=== PATIENT | male | born 1930 | race Caucasian/White ===

== ENCOUNTER 2017-07-27 10:14 | Day surgery (SDC) | payer OTHER ==
[2017-07-27 10:44] VITALS: BMI 27.8
[2017-07-27] MEDS ORDERED: PROPOFOL 20 ML ONE ×2 (11:06)
[2017-07-27 11:41] VITALS: TEMP 97.9
[2017-07-27 12:24] VITALS: BP 118/68; PULSE 53
== END 2017-07-27 12:37 | disposition home or self-care (01) ==
LOC: JASU-ENDO 10:14
PROVIDERS: ATTEND Internal Medicine Gastroenterology
PROC: 0DJ08ZZ Inspection of Upper Intestinal Tract, Via Natural or Artificial Opening Endoscopic (ICD-10-PCS; principal; 2017-07-27 11:15)
DX: R10.13 Epigastric pain (principal); K44.9 Diaphragmatic hernia without obstruction or gangrene; K92.1 Melena; R68.81 Early satiety

== ENCOUNTER 2017-11-08 22:06 | Inpatient (IN) | payer OTHER ==
[2017-11-08] MEDS ORDERED: PIPERACILLIN/TAZOB 3.375 GM 3.375 GM in DEXTROSE 5%-WATER - 50 ML IVPB ONE (22:50)
[2017-11-08] MEDS ORDERED: ACETAMINOPHEN 1000 MG/100 ML VIAL (NON FORMULARY) IVPB ONE (22:50)
[2017-11-08] MEDS ORDERED: VANCOMYCIN 1,000 MG in DEXTROSE 5%-WATER - 250 ML IVPB ONE (22:50)
[2017-11-08] MEDS ORDERED: SODIUM CHLORIDE 1,000 ML IV STA ×2 (22:51)
--- NOTE | 2017-11-08 22:53 | PDOC ---
History of Present Illness - General Exam Limitations: No Limitations - History of Present Illness Initial Comments: 11/08/17 23:20 Patient is an 87 year old male with a significant past medical history of HTN, Stage two pancreatic cancer, controlled with Norvasc and Metoprolol, colon cancer (1990, status post colectomy, in remission), kidney stones, and PE ( diagnosed in 2002, 6 month anticoagulation therapy, not currently on anticoagulants) who presents to the ED with complaints of general malaise and fever that began earlier this week and has increased in intensity overtime prompting him to come into the ED for further evaluation. Patient reports last fever appointment was x2 weeks ago. Patient received pelvis CT in July 2017 that showed pancreatic mass that was likely edno carcinoma gastrohepatic and katina hepatic lymph nodes. Denies chest pain, Sob. Denies fevers,chills. Denies nausea, vomiting. Denies contact with sick individuals, out of state travelling. Denies dysuria, hematuria. Denies constipation, diarrhea. Denies any other symptoms. Allergies: None Social history: Former smoker. No alcohol. No illicit drugs. Surgical history: None PMD: Dr. Chambers <Jung Zuñiga - Last Filed: 11/08/17 23:20> - General History Source: Patient (DrDavid) <Luis Turner - Last Filed: 11/09/17 00:04> - General Chief Complaint: Lethargy Stated Complaint: LETHARGIC Time Seen by Provider: 11/08/17 22:45 Past History <Jung Zuñiga - Last Filed: 11/08/17 23:20> - Past Medical History Anemia: No Asthma: No Cancer: Yes (COLON CANCER remission, pancreatic ca) Cardiac Disorders: Yes (H/O PALPITATION; PULMONARY EMBOLI/DVT;ASHD) CVA: No COPD: No CHF: No Dementia: No Diabetes: No GI Disorders: Yes (GERD, HIATAL HERNIA) Disorders: (NEPHROLITHIASIS S/PESWL) HTN: Yes Hypercholesterolemia: No Liver Disease: No Seizures: No Thyroid Disease: No - Surgical History Abdominal Surgery: Yes (RIGHT HEMICOLECTOMY) Appendectomy: No Cardiac Surgery: No Cholecystectomy: No Lung Surgery: No Neurologic Surgery: No Orthopedic Surgery: No - Suicide/Smoking/Psychosocial Hx Smoking Status: No Smoking History: Never smoked Have you smoked in the past 12 months: No Number of Cigarettes Smoked Daily: 0 Information on smoking cessation initiated: No Hx Alcohol Use: No Drug/Substance Use Hx: No Substance Use Type: None Hx Substance Use Treatment: No <Luis Turner - Last Filed: 11/09/17 00:04> - Past Medical History Allergies/Adverse Reactions: Allergies Allergy/AdvReac Type Severity Reaction Status Date / Time No Known Allergies Allergy Verified 11/08/17 22:28 Home Medications: Ambulatory Orders Amlodipine Besylate [Norvasc -] 10 mg PO DAILY 07/26/12 Lansoprazole [Prevacid -] 30 mg PO DAILY 07/26/12 Metoprolol Succinate [Toprol XL -] 50 mg PO DAILY 07/26/12 Montelukast Na [Singulair -] 10 mg PO HS 07/26/12 Aspirin 81 mg PO DAILY 08/15/12 Lactobacillus Acidophilus [Acidophilus] 1 each PO DAILY 08/15/12 [place]-3 Acid Ethyl Esters [Lovaza -] 2,000 mg PO DAILY 08/15/12 Red Yeast Rice 1,000 mg PO DAILY 08/15/12 Isosorbide Dinitrate 0 mg PO DAILY 08/24/13 Ranolazine [Ranexa -] 500 mg PO BID 08/24/13 Warfarin Na [Coumadin -] 5 mg PO DAILY@1800 #0 tablet 08/28/13 Review of Systems - Review of Systems Able to Perform ROS?: Yes Comments:: 11/08/17 23:20 CONSTITUTIONAL: Absent: fever, no chills, no fatigue EYES: Absent: visual changes ENT: Absent: ear pain, no sore throat CARDIOVASCULAR: Absent: chest pain, no palpitations RESPIRATORY: Absent: cough, no SOB GI: Absent: abdominal pain, no nausea, no vomiting, no constipation, no diarrhea GENITOURINARY: Absent: dysuria, no frequency, no hematuria MUSCULOSKELETAL: Absent: back pain, no arthralgia, no myalgia SKIN: Absent: rash <Jung Zuñiga - Last Filed: 11/08/17 23:20> *Physical Exam - Vital Signs Last Vital Signs Temp Pulse Resp BP Pulse Ox 103.5 F H 80 18 107/56 100 11/08/17 22:24 11/08/17 22:24 11/08/17 22:24 11/08/17 22:24 11/08/17 22:24 - Physical Exam Comments: 11/08/17 23:21 GENERAL: Well-appearing, well-nourished. No apparent distress. HEENT: +Dry oral mucosa. Normocephalic, atraumatic. PERRL, EOM intact. CARDIOVASCULAR: Normal S1, S2. Regular rate and rhythm. PULMONARY: +Decreased breath sounds bilaterally. Clear to auscultation bilaterally. ABDOMEN: Soft, non-distended, non-tender. EXTREMITIES: Normal ROM in all four extremities. No gross deformities. SKIN: Warm, dry. No rash NEUROLOGICAL: No focal neurological deficits. <Jung Zuñiga - Last Filed: 11/08/17 23:20> - Vital Signs Last Vital Signs Temp Pulse Resp BP Pulse Ox 103.5 F H 80 18 107/56 100 11/08/17 22:24 11/08/17 22:24 11/08/17 22:24 11/08/17 22:24 11/08/17 22:24 <Luis Turner - Last Filed: 11/09/17 00:04> ED Treatment Course - LABORATORY CBC & Chemistry Diagram: 11/08/17 22:45 11/08/17 22:45 - ADDITIONAL ORDERS Additional order review: Laboratory Results 11/08/17 22:55 VBG pH 7.49 H POC VBG pCO2 31.4 L POC VBG pO2 42.2 Mixed VBG HCO3 23.7 11/08/17 22:45 RBC 3.29 L MCV 85.1 MCHC 32.8 RDW 16.2 H MPV 9.3 Neutrophils % No Result Required. Lymphocytes % No Result Required. - Medications Given in the ED: ED Medications Discontinued Medications Generic Name Dose Route Start Last Admin Trade Name Freq PRN Reason Stop Dose Admin Acetaminophen 1,000 mg 11/08/17 22:50 11/08/17 23:00 Ofirmev Injection - IVPB 11/08/17 22:51 1,000 mg ONCE ONE Administration <Jung Zuñiga - Last Filed: 11/08/17 23:20> - LABORATORY CBC & Chemistry Diagram: 11/08/17 22:45 11/08/17 22:45 - RADIOLOGY Radiology Studies Ordered: Category Date Time Status CHEST X-RAY PORTABLE* [RAD] Stat Radiology 11/08/17 22:46 Ordered <Luis Turner - Last Filed: 11/09/17 00:04> *DC/Admit/Observation/Transfer - Attestations Scribe Attestion: 11/08/17 23:21 Documentation prepared by Jung Zuñiga, acting as chief medical director for Luis Turner DO. <Jung Zuñiga - Last Filed: 11/08/17 23:20> - Discharge Dispostion Decision to Admit order: Yes <Luis Turner - Last Filed: 11/09/17 00:04> Diagnosis at time of Disposition: Pancreatic cancer, Fever - Discharge Dispostion Condition at time of disposition: Stable
[2017-11-08] MEDS ORDERED: VANCOMYCIN 1 GRAM (PRE-DOCKED) 1,000 MG/250 ML BAG IVPB ONE (23:00)
[2017-11-08] MEDS ORDERED: ACETAMINOPHEN INJECTION 100 ML IVPB ONE (23:00)
[2017-11-08 23:08] LABS: VENOUS PC02 31.4 mmHg (38-52); VENOUS PH 7.49 (7.32-7.42); VENOUS PO2 42.2 mmHg (28-48)
[2017-11-08 23:14] LABS: HEMOGLOBIN 9.2 GM/dL (11.7-16.9); MCH 27.9 pg (25.7-33.7); MCHC 32.8 g/dl (32.0-35.9); MEAN CELL VOLUME 85.1 fl (80-96); MEAN PLT VOLUME 9.3 fl (7.5-11.1); PLATELET COUNT 282 K/MM3 (134-434); RBC 3.29 M/mm3 (4.00-5.60); RDW 16.2 % (11.9-15.9); WHITE BLOOD COUNT 17.4 K/mm3 (4.0-10.0)
[2017-11-08 23:25] LABS: INR 1.65 (0.82-1.09); PROTHROMBIN TIME (PATIENT) 18.7 SEC (9.7-13.0)
[2017-11-08 23:28] LABS: ACTIVATED PTT 25.2 SECONDS (25.2-36.5)
[2017-11-08 23:34] LABS: PLATELET ESTIMATE ADEQUATE
[2017-11-08 23:38] LABS: ALBUMIN 2.1 g/dl (3.4-5.0); ANION GAP 9 (8-16); BILIRUBIN,TOTAL 0.8 mg/dL (0.2-1.0); BLOOD UREA NITROGEN 18 mg/dL (7-18); CALCIUM 8.4 mg/dL (8.5-10.1); CHLORIDE 99 mmol/L (98-107); CO2 24 mmol/L (21-32); CREATININE 1.1 mg/dL (0.7-1.3); GLUCOSE,RANDOM 191 mg/dL (74-106); POTASSIUM 3.9 mmol/L (3.5-5.1); SGOT/AST 39 U/L (15-37); SGPT/ALT 30 U/L (12-78); SODIUM 132 mmol/L (136-145); TOT PROT 5.5 g/dl (6.4-8.2)
[2017-11-08 23:40] LABS: ALK PHOS 106 U/L (45-117)
[2017-11-09] MEDS ORDERED: DEXTROSE 5%-0.45% SALINE 1,000 ML IV SCH (00:15)
--- NOTE | 2017-11-09 02:05 | HP ---
CHIEF COMPLAINT: fever PCP: Reyes, Oncology: [facility] HISTORY OF PRESENT ILLNESS: nancy is a 87 year old male with a significant past medical history of pancreatic CA (diagnosed recently) on chemo, last dose 2 weeks ago presented to the ED with fever x 2 days with associated malaise. Denies any other symptoms. Denies SOB, cough, chest pain, abdominal pain, N/V/D, dysuria, frequency. ER course was notable for: (1) WBC 17.4, 10% bands, lactic acid 2.7 (2) Sodium 132 (3) given vanc and zosyn Recent Travel: pt denies PAST MEDICAL HISTORY: pancreatic CA, HTN, ASHD, PE/DVT 2013, GERD, hiatal hernia, colon CA 1990, kidney stones PAST SURGICAL HISTORY: R hemicolectomy B/L cataract Social History: Smoking: pt denies Alcohol: pt denies Drugs: pt denies Family History: mother age 56, CVA father age 72, atherosclerosis brother age 33, Hodkin's lymphoma brother age 50, multiple myeloma sister age 58, cancer, unkown type sister in her 50s, embolism Allergies No Known Allergies Allergy (Verified 11/08/17 22:28) HOME MEDICATIONS: 3 Medication Instructions Recorded Amlodipine Besylate [Norvasc -] 10 mg PO DAILY 07/26/12 Lansoprazole [Prevacid -] 30 mg PO DAILY 07/26/12 Metoprolol Succinate [Toprol XL -] 50 mg PO DAILY 07/26/12 Montelukast Na [Singulair -] 10 mg PO HS 07/26/12 Aspirin 81 mg PO DAILY 08/15/12 Lactobacillus Acidophilus 1 each PO DAILY 08/15/12 [Acidophilus] [place]-3 Acid Ethyl Esters [Lovaza 2,000 mg PO DAILY 08/15/12 -] Red Yeast Rice 1,000 mg PO DAILY 08/15/12 Ranolazine [Ranexa -] 500 mg PO BID 08/24/13 Enoxaparin [Lovenox -] unkown dose SQ DAILY 11/09/17 Isosorbide Mononitrate [Isosorbide 30 mg PO DAILY 11/09/17 Mononitrate ER] REVIEW OF SYSTEMS CONSTITUTIONAL: Present: fever, malaise Absent: chills, diaphoresis, generalized weakness, loss of appetite, weight change HEENT: Absent: rhinorrhea, nasal congestion, throat pain, throat swelling, difficulty swallowing, mouth swelling, ear pain, eye pain, visual changes CARDIOVASCULAR: Absent: chest pain, syncope, palpitations, irregular heart rate, lightheadedness , peripheral edema RESPIRATORY: Absent: cough, shortness of breath, dyspnea with exertion, orthopnea, wheezing, stridor, hemoptysis GASTROINTESTINAL: Absent: abdominal pain, abdominal distension, nausea, vomiting, diarrhea, constipation, melena, hematochezia GENITOURINARY: Absent: dysuria, frequency, urgency, hesitancy, hematuria, flank pain, genital pain MUSCULOSKELETAL: Absent: myalgia, arthralgia, joint swelling, back pain, neck pain SKIN: Absent: rash, itching, pallor HEMATOLOGIC/IMMUNOLOGIC: Absent: easy bleeding, easy bruising, lymphadenopathy, frequent infections ENDOCRINE: Absent: unexplained weight gain, unexplained weight loss, heat intolerance, cold intolerance NEUROLOGIC: Absent: headache, focal weakness or paresthesias, dizziness, unsteady gait, seizure, mental status changes, bladder or bowel incontinence PSYCHIATRIC: Absent: anxiety, depression, suicidal or homicidal ideation, hallucinations. PHYSICAL EXAMINATION Vital Signs - 24 hr 3 //18 22:24 Temperature 103.5 F H Pulse Rate 80 Respiratory 18 Rate Blood Pressure 107/56 O2 Sat by Pulse 100 Oximetry (%) GENERAL: Awake, alert, and fully oriented, in no acute distress. HEAD: Normal with no signs of trauma. EYES: Pupils equal, round and reactive to light, extraocular movements intact, sclera anicteric, conjunctiva clear. No lid lag. EARS, NOSE, THROAT: Ears normal, nares patent, oropharynx clear without exudates. Moist mucous membranes. NECK: Normal range of motion, supple without lymphadenopathy, JVD, or masses. LUNGS: Breath sounds equal, clear to auscultation bilaterally. No wheezes. No accessory muscle use. crackles bilat bases HEART: Regular rate and rhythm, normal S1 and S2 without murmur, rub or gallop. ABDOMEN: Soft, nontender, not distended, normoactive bowel sounds, no guarding, no rebound, no masses. No hepatomegaly or splenomegaly. MUSCULOSKELETAL: Normal range of motion at all joints. No bony deformities or tenderness. No CVA tenderness. UPPER EXTREMITIES: 2+ pulses, warm, well-perfused. No cyanosis. No clubbing. No peripheral edema. LOWER EXTREMITIES: 2+ pulses, warm, well-perfused. No calf tenderness. No peripheral edema. NEUROLOGICAL: Cranial nerves II-XII intact. Normal speech. Normal gait. PSYCHIATRIC: Cooperative. Good eye contact. Appropriate mood and affect. SKIN: Warm, dry, normal turgor, no rashes or lesions noted, normal capillary refill. Laboratory Results - last 24 hr 3 11/08/17 11/08/17 11/08/17 11/08/17 11/09/17 22:45 22:45 22:45 22:55 00:45 WBC 17.4 H RBC 3.29 L Hgb 9.2 L Hct 28.0 L D MCV 85.1 MCH 27.9 MCHC 32.8 RDW 16.2 H Plt Count 282 D MPV 9.3 Absolute Neuts (auto) 15.9 Total Counted 100 Neutrophils % No Result Required. Neutrophils % (Manual) 82.0 Band Neutrophils % 10.0 Lymphocytes % No Result Required. Lymphocytes % (Manual) 3.0 L Monocytes % (Manual) 4 Nucleated RBC % 0 Metamyelocytes 1 Hypochromia 1+ Dohle Bodies 1+ Platelet Estimate Adequate Platelet Comment No clumping noted Polychromasia 1+ PT with INR 18.70 H INR 1.65 H D PTT (Actin FS) 25.2 L D VBG pH 7.49 H POC VBG pCO2 31.4 L POC VBG pO2 42.2 Mixed VBG HCO3 23.7 Sodium 132 L Potassium 3.9 Chloride 99 Carbon Dioxide 24 Anion Gap 9 BUN 18 Creatinine 1.1 Creat Clearance w eGFR > 60 Random Glucose 191 H D Lactic Acid 2.7 H* 1.5 Calcium 8.4 L Total Bilirubin 0.8 AST 39 H D ALT 30 D Alkaline Phosphatase 106 Troponin I 0.05 D Total Protein 5.5 L Albumin 2.1 L ECG Sinus rhythm with PAC with aberrant conduction vent rate 98, QTC 416 low voltage QRS No acute ST/T changes ASSESSMENT/PLAN: 87yM with PMH pancreatic CA-last chemo 2 weeks ago, HTN, ASHD, PE/DVT 2013, GERD , hiatal hernia, colon CA 1990, kidney stones who presented to the ED with fever /malaise x 2 days. Fever, sepsis, suspected secondary to UTI - urinalysis pending, nurse aware to collect and send - given vanc and zosyn in the ED, cont same - ID consult - received 2L NS, lactic acid down to 1.5 - cont NS @ 50cc/hr - follow CXR report Pancreatic CA - recommend contact primary oncologist in AM HTN/ASHD - cont home meds: ASA, toprol, ranexa, omega 3, isosorbide GERD - home prevacid changed to formulary pantoprazole h/o PE/DVT - pt reports he is no longer on warfarin, changed to shot once daily - lovenox 60mg BID DVT PPX - full dose lovenox FEN - NS @ 50cc/hr - BMP in am - low sodium diet as tolerated Dispo: pt currently requires further inpatient management of his emergent condition. Hospitalist Screening - Colonoscopy Questionnaire Colonoscopy Questionnaire: Colonoscopy Questionnaire
[2017-11-09] MEDS ORDERED: SODIUM CHLORIDE 1,000 ML IV SCH (02:30)
[2017-11-09 04:56] VITALS: BMI 27.4
[2017-11-09] MEDS ORDERED: DEXTROSE 5%-WATER - 50 ML IVPB ONE (05:44)
[2017-11-09] MEDS ORDERED: PIPERACILLIN/TAZOBACTAM 3.375 GM VIAL IVPB ONE (05:44)
[2017-11-09] MEDS ORDERED: PIPERACILLIN/TAZOB 3.375 GM 3.375 GM in DEXTROSE 5%-WATER - 50 ML IVPB ONE (06:00)
--- NOTE | 2017-11-09 09:12 | PN ---
Progress Note, Physician - Current Medication List Current Medications: Active Medications Amlodipine Besylate (Norvasc -) 10 mg PO DAILY [facility] Aspirin (Asa -) 81 mg PO DAILY [facility] Enoxaparin Sodium (Lovenox -) 60 mg SQ BID [facility] Sodium Chloride (Normal Saline -) 1,000 mls @ 50 mls/hr IV ASDIR [facility] Stop: 11/10/17 02:28 Last Admin: 11/09/17 02:46 Dose: 50 mls/hr Isosorbide Mononitrate (Imdur -) 30 mg PO DAILY [facility] Lactobacillus Acidophilus (Bacid -) 1 tab PO DAILY [facility] Metoprolol Succinate (Toprol Xl -) 50 mg PO DAILY [facility] Montelukast Sodium (Singulair -) 10 mg PO HS [facility] Non-Formulary Medication (Red Yeast Rice [Red Yeast Rice]) 1,000 mg PO DAILY [id number] Ethyl Esters (Lovaza -) 2 gm PO DAILY [facility] Pantoprazole Sodium (Protonix -) 40 mg PO DAILY [facility] Ranolazine (Ranexa -) 500 mg PO BID [facility] - Objective Vital Signs: Vital Signs Temperature 99.9 F H 11/09/17 08:58 Pulse Rate 104 H 11/09/17 08:58 Respiratory Rate 20 11/09/17 08:58 Blood Pressure 107/51 11/09/17 08:58 O2 Sat by Pulse Oximetry (%) 92 L 11/09/17 04:56 Labs: CBC, BMP 11/08/17 22:45 11/08/17 22:45 INR, PTT INR 1.65 (0.82-1.09) H D 11/08/17 22:45 Problem List - Problems (1) Fever Assessment/Plan: -sepsis, suspected secondary to UTI - urinalysis pending - given vanc and zosyn in the ED, cont same - ID consult - received 2L NS, lactic acid down to 1.5 - cont NS @ 100cc/hr - ct scan Code(s): R50.9 - FEVER, UNSPECIFIED (2) Pancreatic cancer Assessment/Plan: - oncology consult - had chemo 2 weeks ago Code(s): C25.9 - MALIGNANT NEOPLASM OF PANCREAS, UNSPECIFIED (3) DVT (deep venous thrombosis) Assessment/Plan: - pt reports he is no longer on warfarin, changed to shot once daily - lovenox 60mg BID Code(s): I82.409 - ACUTE EMBOLISM AND THOMBOS UNSP DEEP VN UNSP LOWER EXTREMITY (4) HTN (hypertension) Assessment/Plan: - cont home meds: ASA, toprol, ranexa, omega 3, isosorbide -hold amlodipine Code(s): I10 - ESSENTIAL (PRIMARY) HYPERTENSION
--- NOTE | 2017-11-09 09:59 | PN ---
Progress Note (short form) - Note Progress Note: ID Full note dictated Chemotherapy pancreatic cancer recently has port Chills no localizing complaints Selected Entries 11/09/17 08:58 Temperature 99.9 F H Pulse Rate 104 H Respiratory 20 Rate Blood Pressure 107/51 Dyspneic Alert mod distress Lung Diminished BS Cor S1 S2 Tachy Abd Soft nontender Microbiology Laboratory Tests 11/08/17 11/08/17 11/08/17 22:45 22:45 22:45 WBC 17.4 H Hgb 9.2 L Hct 28.0 L D Plt Count 282 D BUN 18 Creatinine 1.1 Creat Clearance w eGFR > 60 Lactic Acid 2.7 H* Total Bilirubin 0.8 AST 39 H D ALT 30 D 11/09/17 00:45 WBC Hgb Hct Plt Count BUN Creatinine Creat Clearance w eGFR Lactic Acid 1.5 Total Bilirubin AST ALT Assessment Sepsis syndrome source unclear immunocompromised man due to age pancreatic cancer and chemotherapy Has port Respiratory distress Plan Blood and urine cultures CT chest ABG Consider pulmonary consult Oma RIVERO
[2017-11-09] MEDS ORDERED: RANOLAZINE E.R. 500 MG TABLET (FP) PO SCH (10:00)
[2017-11-09] MEDS ORDERED: PATIENT'S OWN MEDICATION (NON-FORMULARY) (Lansoprazole 30 MG) PO SCH (10:00)
[2017-11-09] MEDS ORDERED: RED YEAST RICE PO SCH (10:00)
[2017-11-09] MEDS ORDERED: OMEGA-3 ACID ETHYL ESTERS (FATTY-ACIDS) 1 GM CAPSULE (FP) PO SCH (10:00)
[2017-11-09] MEDS ORDERED: amLODIPine BESYLATE 10 MG TABLET (FP) PO SCH ×2 (10:00)
[2017-11-09] MEDS ORDERED: ASPIRIN 81 MG CHEWABLE TABLETS PO SCH (10:00)
[2017-11-09] MEDS: ENOXAPARIN NA (PORCINE) 60 MG/0.6 ML DISP.SYRIN SQ SCH ×2 (10:05→22:03)
[2017-11-09 10:41] LABS: BASO % 0.2 % (0-2.0); HEMATOCRIT 25.5 % (35.4-49); HEMOGLOBIN 8.4 GM/dL (11.7-16.9); LYMPH % 1.7 % (8-40); MCH 28.2 pg (25.7-33.7); MCHC 32.9 g/dl (32.0-35.9); MEAN PLT VOLUME 9.4 fl (7.5-11.1); MONO % 2.7 % (3.8-10.2); NEUT % 95.4 % (42.8-82.8); PLATELET COUNT 200 K/MM3 (134-434); RBC 2.97 M/mm3 (4.00-5.60); RDW 16.6 % (11.9-15.9); WHITE BLOOD COUNT 9.7 K/mm3 (4.0-10.0)
--- NOTE | 2017-11-09 10:44 | CONS ---
DATE OF CONSULTATION: DATE OF DICTATION: 11/09/2017 HISTORY OF PRESENT ILLNESS: This is an 87-year-old male with known pancreatic cancer whom I asked to see for evaluation of fever. The patient has stage 2 pancreatic cancer and has been followed at [facility]. He has been receiving chemotherapy through a [id number] and notes that his last chemotherapy the name of which he was unaware was approximately 2 weeks ago. He lives at home with his and yesterday noted onset of worsening pain in his right upper quadrant for which he takes analgesics on a chronic basis. He also noted fever and shaking chills. He came to the emergency room where he was empirically treated for sepsis with a dose of vancomycin and piperacillin/tazobactam. I am asked to see him for further management. He appears to be in respiratory distress and is hypoxic on 2 L, nasal cannula. He denies any chest pain, palpitations and has a history of DVT for which he has been on Lovenox at home for some time. He has no diarrhea, vomiting and denies any dysuria or hematuria. He lives with his and has no history of recent travel or exposure to persons with known illness. He denied any rash or joint pains. PAST MEDICAL HISTORY: Includes hypertension, pancreatic cancer, colon cancer, status post colectomy, kidney stones and history of PE diagnosed in 2002. The notes reflect that he is not on anticoagulation at home, but I spoke to his primary care doctor who confirmed that he was taking Lovenox. ALLERGIES: None known. SOCIAL HISTORY: Former smoker. No drug use. FAMILY HISTORY: Noncontributory. REVIEW OF SYSTEMS: Respiratory: Shortness of breath. Denies cough, pleuritic chest pain. Cardiac: No palpitations, murmur. Gastrointestinal: Currently no abdominal pain, vomiting, diarrhea. Genitourinary: No dysuria, hematuria, urinary frequency. PHYSICAL EXAMINATION:General: He was an elderly male, alert, who appeared in acute respiratory distress. Vital Signs: His temperature maximum was 103.5 but currently temperature 99.9, pulse 100, blood pressure 107/51, respirations 20, O2 saturation 92% on 2 L, nasal cannula. HEENT: Revealed no oral candidiasis. Neck: Supple without adenopathy. Lungs: Diminished breath sounds bilaterally. No rales or rhonchi. Heart: S1, S2, regular rhythm without audible murmur, tachycardic. Abdomen: Positive bowel sounds, soft, nontender, no guarding or rebound, no palpable mass. Extremities: No clubbing, cyanosis or edema. LABORATORIES: White count of 17.4, hemoglobin 9.2, platelets of 282, left shift with 10% bands. INR of 1.65. BUN 18, creatinine 1.1. Lactic acid 2.7, 1.5. Bilirubin 0.8, alkaline phosphatase 106, AST 39, ALT 30. Chest x-ray was reviewed, a rotated film, possible atelectasis, ? infiltrate, left port. ASSESSMENT: Sepsis syndrome in this 87-year-old male with pancreatic cancer receiving chemotherapy. Source of sepsis unclear. Possible sources include urinary tract and pneumonia. Currently there is no urinalysis available for review. This has been ordered by Dr. Chambers. He has a history of a pulmonary embolus and deep vein thrombosis but according to Dr. Chambers has been on anticoagulation. RECOMMENDATIONS: At this point would empirically treat him with vancomycin and Zosyn pending blood and urine cultures. In view of his respiratory distress will order a blood gas as well as pulmonary consultation and consideration of ICU transfer. CT of the abdomen has been ordered and I will add a noncontrast chest CT for completeness to evaluate for pneumonia. Case was discussed at length with Dr. Chambers. JAY JOE M.D. [id number]
[2017-11-09 10:47] LABS: ALBUMIN 1.7 g/dl (3.4-5.0); ALK PHOS 105 U/L (45-117); ANION GAP 12 (8-16); BILIRUBIN,DIRECT 0.5 mg/dL (0.0-0.2); BILIRUBIN,TOTAL 0.9 mg/dL (0.2-1.0); BLOOD UREA NITROGEN 15 mg/dL (7-18); CALCIUM 7.6 mg/dL (8.5-10.1); CHLORIDE 104 mmol/L (98-107); CO2 21 mmol/L (21-32); GLUCOSE,RANDOM 143 mg/dL (74-106); MAGNESIUM 1.4 mg/dL (1.8-2.4); PHOSPHOROUS 2.1 mg/dL (2.5-4.9); POTASSIUM 3.8 mmol/L (3.5-5.1); SGOT/AST 36 U/L (15-37); SGPT/ALT 29 U/L (12-78); SODIUM 137 mmol/L (136-145); TOT PROT 4.6 g/dl (6.4-8.2)
[2017-11-09] MEDS: ASPIRIN 81 MG CHEWABLE TABLETS PO SCH (11:06)
[2017-11-09] MEDS: OMEGA-3 ACID ETHYL ESTERS (FATTY-ACIDS) 1 GM CAPSULE (FP) PO SCH (11:06)
[2017-11-09] MEDS: RANOLAZINE E.R. 500 MG TABLET (FP) PO SCH ×2 (11:06→21:52)
[2017-11-09] MEDS: LACTOBACILLUS ACIDOPHILUS 1 TABLET PO SCH (11:06)
[2017-11-09] MEDS: PANTOPRAZOLE 40 MG TABLET (FP) PO SCH (11:07)
[2017-11-09] MEDS: ISOSORBIDE MONONITRATE 30 MG TAB.SR.24H (FP) PO SCH (11:07)
[2017-11-09] MEDS: VANCOMYCIN 1 GM PREMIX - 1 GM/200 ML BAG IVPB SCH ×2 (11:33→22:05)
--- NOTE | 2017-11-09 11:40 | EKG ---
Test Reason : Blood Pressure : / mmHG Vent. Rate : 098 BPM Atrial Rate : 098 BPM P-R Int : 178 ms QRS Dur : 070 ms QT Int : 326 ms P-R-T Axes : 028 007 032 degrees QTc Int : 416 ms SINUS RHYTHM WITH PREMATURE ATRIAL COMPLEXES WITH ABERRANT CONDUCTION LOW VOLTAGE QRS CANNOT RULE OUT ANTERIOR INFARCT , AGE UNDETERMINED ABNORMAL ECG WHEN COMPARED WITH ECG OF 24-AUG-2013 11:12, ABERRANT CONDUCTION IS NOW PRESENT VENT. RATE HAS INCREASED BY 45 BPM NONSPECIFIC T WAVE ABNORMALITY NOW EVIDENT IN ANTERIOR LEADS Confirmed by HIEU RIVERO, SHANNON ([id number]) on 11/09/2017 11:40:44 AM Referred By: Confirmed By:SHANNON HAGEN MD
[2017-11-09 11:55] LABS: ARTERIAL BLD GAS O2 SATURATION 96.4 % (90-98.9); ARTERIAL BLOOD GAS BASE EXCESS -3.6 meq/l (-2-2); ARTERIAL BLOOD GAS PCO2 25.2 mmHg (35-45); ARTERIAL BLOOD GAS PO2 75.8 mmHg (68-100); ARTERIAL BLOOD GAS pH 7.48 (7.35-7.45)
[2017-11-09 11:57] LABS: ALLENS TEST POSITIVE
[2017-11-09] MEDS: INSULIN SLIDING SCALE (NOVOLOG) 1 VIAL SQ SCH ×3 (12:10→21:56)
[2017-11-09 12:13] LABS: PLATELET ESTIMATE ADEQUATE
--- NOTE | 2017-11-09 12:13 | CON.GI ---
Consult Consult Specialty:: Gastroenterology Referred by:: Dr. Floyd Chambers Reason for Consultation:: Pancreatic cancer - History of Present Illness Chief Complaint: Fever leading to altered mental status History of Present Illness: 87M with pancreatic head neoplasm was due to receive his 4th dosing of chemotherapy when he developed fever and altered mental status. He was evaluated at the [facility] where chemo was advised. His 09/09 MRI reveals that the neoplasm is over 7cm in size and encasing the celiac and mesenteric vasculature. She has been eating and moving his bowels but has been losing weight. He denies cough or diarrhea. He is not pruritic and his bilirubin is I saw him on 07/25/17 for diffuse colicky abdominal pains and ordered the CT scan that discovered his neoplasm An EGD in 08/10 was unremarkable. He had right colon cancer resected in 1990 and had his last colonoscopy with Dr Antonio 5 years ago. He opted against further surveillance when discussed in July. He continues to have RUQ pain felt to be due to his tumor. - History Source History Provided By: Patient, Medical Record Limitations to Obtaining History: No Limitations - Past Medical History Cardio/Vascular: Yes: CAD, HTN, Hyperlipdemia Pulmonary: Yes: Pulmonary Embolus (associated with DVT) Gastrointestinal: Yes: Cancer (Pancreatic cancr dx'ed 08/10, Right colon cancer resected 1990) Renal/: Yes: BPH, Renal Calculi (s/p ESWL) Musculoskeletal: Yes: Osteoarthritis - Past Surgical History Past Surgical History: Yes: Cataract Removal (bilateral), Colonoscopy, Tonsillectomy (surgical excision of right renal stones), Upper Endoscopy - Alcohol/Substance Use Hx Alcohol Use: Yes (socially until chemo began) History of Substance Use: reports: None - Smoking History Smoking history: Former smoker Have you smoked in the past 12 months: No Aproximately how many cigarettes per day: 0 If you are a former smoker, when did you quit?: 1953 - Social History Usual Living Arrangement: With Spouse ADL: Independent Occupation: retired mailman Place of : [facility] History of Recent Travel: No Home Medications - Allergies Allergies/Adverse Reactions: Allergies Allergy/AdvReac Type Severity Reaction Status Date / Time No Known Allergies Allergy Verified 11/08/17 22:28 - Home Medications Home Medications: Ambulatory Orders Amlodipine Besylate [Norvasc -] 10 mg PO DAILY 07/26/12 Lansoprazole [Prevacid -] 30 mg PO DAILY 07/26/12 Metoprolol Succinate [Toprol XL -] 50 mg PO DAILY 07/26/12 Montelukast Na [Singulair -] 10 mg PO HS 07/26/12 Aspirin 81 mg PO DAILY 08/15/12 Lactobacillus Acidophilus [Acidophilus] 1 each PO DAILY 08/15/12 [place]-3 Acid Ethyl Esters [Lovaza -] 2,000 mg PO DAILY 08/15/12 Red Yeast Rice 1,000 mg PO DAILY 08/15/12 Ranolazine [Ranexa -] 500 mg PO BID 08/24/13 Enoxaparin [Lovenox -] 0 mg SQ DAILY 11/09/17 Isosorbide Mononitrate [Isosorbide Mononitrate ER] 30 mg PO DAILY 11/09/17 Family Disease History - Family Disease History Family Disease History: Heart Disease: Father ( 72 of [place]), CA: Brother ( multiple myeloma), Sister (colon cancer @ age 58), Other: Mother ( 56 of CVA ) Review of Systems - Review of Systems Constitutional: reports: Loss of Appetite, Unintentional Wgt. Loss, Weakness Eyes: reports: No Symptoms HENT: reports: No Symptoms Neck: reports: No Symptoms Cardiovascular: reports: No Symptoms Respiratory: reports: No Symptoms Gastrointestinal: reports: Abdominal Pain Musculoskeletal: reports: Back Pain, Joint Pain Physical Exam-GI Vital Signs: Vital Signs Temperature 99.9 F H 11/09/17 08:58 Pulse Rate 104 H 11/09/17 08:58 Respiratory Rate 20 11/09/17 08:58 Blood Pressure 107/51 11/09/17 08:58 O2 Sat by Pulse Oximetry (%) 92 L 11/09/17 04:56 CBC,CMP WBC 9.7 K/mm3 (4.0-10.0) 11/09/17 10:02 RBC 2.97 M/mm3 (4.00-5.60) L 11/09/17 10:02 Hgb 8.4 GM/dL (11.7-16.9) L 11/09/17 10:02 Hct 25.5 % (35.4-49) L 11/09/17 10:02 MCV 86.0 fl (80-96) 11/09/17 10:02 MCH 28.2 pg (25.7-33.7) 11/09/17 10:02 MCHC 32.9 g/dl (32.0-35.9) 11/09/17 10:02 RDW 16.6 % (11.9-15.9) H 11/09/17 10:02 Plt Count 200 K/MM3 (134-434) D 11/09/17 10:02 MPV 9.4 fl (7.5-11.1) 11/09/17 10:02 Absolute Neuts (auto) 9.2 # 11/09/17 10:02 Total Counted 100 11/09/17 10:02 Neutrophils % 95.4 % (42.8-82.8) H D 11/09/17 10:02 Neutrophils % (Manual) 83.0 % (42.8-82.8) H 11/09/17 10:02 Band Neutrophils % 13.0 % 11/09/17 10:02 Lymphocytes % 1.7 % (8-40) L D 11/09/17 10:02 Lymphocytes % (Manual) 1.0 % (8-40) L D 11/09/17 10:02 Monocytes % 2.7 % (3.8-10.2) L 11/09/17 10:02 Monocytes % (Manual) 3 % (3.8-10.2) L 11/09/17 10:02 Eosinophils % 0.0 % (0-4.5) D 11/09/17 10:02 Basophils % 0.2 % (0-2.0) 11/09/17 10:02 Nucleated RBC % 0 % (0-0) 11/09/17 10:02 Metamyelocytes 1 % (0-2) 11/08/17 22:45 Hypochromia 1+ 11/08/17 22:45 Dohle Bodies 1+ 11/08/17 22:45 Platelet Estimate Adequate 11/09/17 10:02 Platelet Comment Rare giant plts 11/09/17 10:02 Polychromasia 1+ 11/08/17 22:45 Sodium 137 mmol/L (136-145) 11/09/17 10:02 Potassium 3.8 mmol/L (3.5-5.1) 11/09/17 10:02 Chloride 104 mmol/L (98-107) 11/09/17 10:02 Carbon Dioxide 21 mmol/L (21-32) 11/09/17 10:02 Anion Gap 12 (8-16) 11/09/17 10:02 BUN 15 mg/dL (7-18) 11/09/17 10:02 Creatinine 1.0 mg/dL (0.7-1.3) 11/09/17 10:02 Creat Clearance w eGFR > 60 (>60) 11/09/17 10:02 Random Glucose 143 mg/dL (74-106) H D 11/09/17 10:02 Lactic Acid 1.5 mmol/L (0.0-2.0) 11/09/17 00:45 Calcium 7.6 mg/dL (8.5-10.1) L 11/09/17 10:02 Phosphorus 2.1 mg/dL (2.5-4.9) L 11/09/17 10:02 Magnesium 1.4 mg/dL (1.8-2.4) L 11/09/17 10:02 Total Bilirubin 0.9 mg/dL (0.2-1.0) 11/09/17 10:02 Direct Bilirubin 0.5 mg/dL (0.0-0.2) H 11/09/17 10:02 AST 36 U/L (15-37) 11/09/17 10:02 ALT 29 U/L (12-78) 11/09/17 10:02 Alkaline Phosphatase 105 U/L (45-117) 11/09/17 10:02 Troponin I 0.05 ng/ml (0.00-0.05) D 11/08/17 22:45 Total Protein 4.6 g/dl (6.4-8.2) L 11/09/17 10:02 Albumin 1.7 g/dl (3.4-5.0) L 11/09/17 10:02 Current Medications Generic Name Dose Route Start Last Admin Trade Name Diegoq PRN Reason Stop Dose Admin Aspirin 81 mg 11/09/17 10:00 11/09/17 11:06 Asa - PO 81 mg DAILY CHUY Administration Enoxaparin Sodium 60 mg 11/09/17 10:00 11/09/17 10:05 Lovenox - SQ 60 mg BID CHUY Administration Potassium Chloride/Sodium Chloride 20 meq in 1,000 mls @ 100 mls/hr 11/09/17 09:15 Ns+20 Meq Kcl - IV ASDIR CHUY Vancomycin HCl 1 gm in 200 mls @ 133.333 mls/hr 11/09/17 11:00 11/09/17 11:33 Vancomycin 1 Gm Premix - IVPB 133.333 mls/hr BID@1100,2300 CHUY Administration Protocol Piperacillin Sod/Tazobactam 100 mls @ 200 mls/hr 11/09/17 18:00 Sod 4.5 gm/ Dextrose IVPB Q8H-IV CHUY Protocol Insulin Aspart 1 vial 11/09/17 11:00 11/09/17 12:10 Novolog Vial Sliding Scale - SQ Not Given ACHS [facility] Protocol Isosorbide Mononitrate 30 mg 11/09/17 10:00 11/09/17 11:07 Imdur - PO 30 mg DAILY CHUY Administration Lactobacillus Acidophilus 1 tab 11/09/17 10:00 11/09/17 11:06 Bacid - PO 1 tab DAILY CHUY Administration Metoprolol Succinate 50 mg 11/09/17 10:00 11/09/17 11:06 Toprol Xl - PO 50 mg DAILY CHUY Administration Montelukast Sodium 10 mg 11/09/17 22:00 Singulair - PO HS CHUY Non-Formulary Medication 1,000 mg 11/09/17 10:00 Red Yeast Rice [Red Yeast Rice] PO DAILY CHUY Gfvof-5-Empq Ethyl Esters 2 gm 11/09/17 10:00 11/09/17 11:06 Lovaza - PO 2 gm DAILY CHUY Administration Pantoprazole Sodium 40 mg 11/09/17 10:00 11/09/17 11:07 Protonix - PO 40 mg DAILY CHUY Administration Ranolazine 500 mg 11/09/17 10:00 11/09/17 11:06 Ranexa - PO 500 mg BID CHUY Administration Constitutional: Yes: Calm Eyes: Yes: Conjunctiva Clear HENT: Yes: Normocephalic Neck: Yes: Trachea Midline Cardiovascular: Yes: Regular Rate and Rhythm Respiratory: Yes: CTA Bilaterally Gastrointestinal Inspection: Yes: Scars (healed obliqur RUQ and vertical right paraumbilical incisions) ...Auscultate: Yes: Normoactive Bowel Sounds ...Palpate: Yes: Soft, Other (nontender) Edema: No Psychiatric: Yes: Alert, Oriented Labs: CBC, BMP 11/09/17 10:02 11/09/17 10:02 INR, PTT INR 1.65 (0.82-1.09) H D 11/08/17 22:45 Laboratory Tests 11/09/17 10:02 Magnesium 1.4 L Total Bilirubin 0.9 Direct Bilirubin 0.5 H AST 36 ALT 29 Alkaline Phosphatase 105 Albumin 1.7 L Problem List - Problems (1) History of pulmonary embolism Code(s): Z86.711 - PERSONAL HISTORY OF PULMONARY EMBOLISM (2) History of colon cancer Code(s): Z85.038 - PERSONAL HISTORY OF MALIGNANT NEOPLASM OF LARGE INTESTINE (3) Pancreatic cancer Assessment/Plan: Khoi does not appear toxic although his fever is likely due to infection as a results of his immunosuppressed state. His alkaline phosphatase and bilirubin do not suggest high grade obstruction due to his neoplasm and therefore cholangitis is not likely. I do believe that he will come to need palliative stenting but this may best be undertaken at [facility] where they can start with a metal stent. I await his CT to see how far his biliary obstruction has progressed. Code(s): C25.9 - MALIGNANT NEOPLASM OF PANCREAS, UNSPECIFIED
[2017-11-09 12:40] LABS: URINE APPEARANCE CLEAR; URINE BILIRUBIN NEGATIVE (<2.0 mg/dL); URINE COLOR YELLOW; URINE GLUCOSE (UA) NEGATIVE (NEGATIVE); URINE KETONE NEGATIVE (NEGATIVE); URINE LEUK ESTERASE NEGATIVE (NEGATIVE); URINE NITRITE NEGATIVE (NEGATIVE); URINE PROTEIN NEGATIVE (NEGATIVE); URINE UROBILINOGEN NEGATIVE mg/dL (0.2-1.0)
--- NOTE | 2017-11-09 13:54 | PN ---
Progress Note (short form) - Note Progress Note: PULMONARY CONSULTATION DICTATED 11/09/17 IMP ACUTE HYPOXEMIC RESPIRATORY FAILURE ? SECONDARY SEPSIS,?PE,?PNEUMONIA FEVER/SEPSIS ?,?INTRA-ABDOMINAL PANCREATIC CA H/O DVT/PE HTN H/O COLON CA S/P COLECTOMY PLAN ABX PER ID LOVENOX CULTURES O2 CHEST CTA DR DEMPSEY Problem List - Problems (1) Acute hypoxemic respiratory failure Code(s): J96.01 - ACUTE RESPIRATORY FAILURE WITH HYPOXIA (2) Fever Code(s): R50.9 - FEVER, UNSPECIFIED (3) HTN (hypertension) Code(s): I10 - ESSENTIAL (PRIMARY) HYPERTENSION (4) History of colon cancer Code(s): Z85.038 - PERSONAL HISTORY OF MALIGNANT NEOPLASM OF LARGE INTESTINE (5) History of pulmonary embolism Code(s): Z86.711 - PERSONAL HISTORY OF PULMONARY EMBOLISM (6) Pancreatic cancer Code(s): C25.9 - MALIGNANT NEOPLASM OF PANCREAS, UNSPECIFIED
--- NOTE | 2017-11-09 15:32 | CONS ---
DATE OF CONSULTATION: 11/09/2017 REFERRING PHYSICIAN: Floyd Chambers MD HISTORY OF PRESENT ILLNESS: The patient is an 87-year-old white male with a past medical history of prostate CA stage II currently being followed at [facility] currently on chemotherapy status post Port-A-Cath. Last chemo approximately 2 weeks ago. History of DVT, PE in 2002. Initially on Coumadin, apparently recently changed to Lovenox daily. Colon CA status post colectomy, kidney stones, hypertension. There is a history of smoking many years ago. In the [facility] secondary to a fever. Patient presented to the emergency room on admission with family with fever of 103. He was evaluated by Dr. Ernandez for infectious disease and placed on broad spectrum antibiotics. Admitting fever 103.5. he was also noted earlier to be hypoxic with O2 saturation at 85 on room air and tachypneic. He was placed on supplemental O2. Patient currently denies any chest pain, palpitations. Denies any nausea or vomiting. Denies any hemoptysis. Denies any cough or chest congestion. PAST MEDICAL HISTORY: Again includes pancreatic CA stage II, she is currently on chemotherapy, colon CA status post colectomy, kidney stones, history of PE, DVT 2002 (apparently currently still taking Lovenox), hypertension. SOCIAL HISTORY: No occupational exposures. History of tobacco use, quit at age 20. REVIEW OF SYSTEMS: No orthopnea. No PND. Denies shortness of breath at this time. He is having chest pain and palpitations. Denies cough. No abdominal pain. No lower extremity edema. CURRENT MEDICATIONS: Include Zosyn, vancomycin, Lovenox, Lovaza, Toprol, Ranexa, NovoLog, Singulair, Imdur, aspirin, Protonix, and sodium chloride. PHYSICAL EXAMINATION: General: The patient is a well-developed, well-nourished male, awake, alert, in no acute distress. Vital signs: Currently temperature is 99.9, T-max is103.5. HEENT: Normocephalic, atraumatic. Neck: Supple. Heart: Regular, S1, S2. Chest: Clear. Abdomen: Soft. Bowel sounds positive. Extremities: No cyanosis or edema. LABORATORIES: WBC is 9.7, hemoglobin 8.4, hematocrit 25.5, platelet count of 200,000. Blood gas with pH of 7.48, pCO2 of 25, pO2 of 70, and a bicarbonate of 18, saturation 96; that was on 3 L. INR is 1.65. BUN 15, creatinine 1.0, magnesium 1.4. Chest x-ray reveals no infiltrates, no effusions. IMPRESSION: 1. Acute hypoxemic respiratory failure possibly secondary to sepsis. No evidence of pneumonia. Doubt pulmonary embolism, patient is currently on Lovenox, although cannot completely exclude. 2. Fever, etiology is sepsis, etiology to be determined, source to be determined. Possible pulmonary, possible underlying pneumonia, although not noted on chest x -ray. 3. Possible genitourinary source as well as intraabdominal pathology. 4. Pancreatic cancer stage II on chemotherapy. 5. History of colon cancer status post colectomy. 6. History of deep venous thrombosis and pulmonary embolism, currently on anticoagulation. PLAN: Continue Lovenox. Will also obtain CTA of the chest as well as CT of the abdomen. Supplemental O2, inhaled bronchodilator. Obtain cultures, antibiotics as per Infectious Disease, IV fluids. LEAH DEMPSEY M.D. JUAN [id number] MTDD
[2017-11-09] MEDS: SODIUM CHLORIDE 0.9%/KCL 20 MEQ/1,000 ML INFUS.BAG IV SCH (15:36)
[2017-11-09] MEDS: PIPERACILLIN/TAZOB 4.5 GM 4.5 GM in DEXTROSE 5%-WATER 100 ML IVPB SCH (18:11)
[2017-11-09] MEDS ORDERED: PT OWN MED DRAWER 7, Y5N ONE (21:47)
[2017-11-09] MEDS: MONTELUKAST NA 10 MG TABLET PO SCH (21:52)
[2017-11-09] MEDS ORDERED: MONTELUKAST NA 10 MG TABLET PO SCH (22:00)
--- NOTE | 2017-11-10 00:15 | CONSULT ---
Consult Consult Specialty:: Oncology Referred by:: Medicine Reason for Consultation:: History of pancreatic cancer - History of Present Illness Chief Complaint: Patient recently started systemic chemotherapy for newly diagnosed pancreatic cancer [place] [facility] is brought to ER for fever. History of Present Illness: Unable to obtain detailed history from patient. Appears he was brought in for a short history of fever. Patient denies any new symptoms. Admits to long-standing abdominal pain, which is not worse at this time than previously. - History Source History Provided By: Patient, Medical Record Limitations to Obtaining History: Poor Historian - Past Medical History Cardio/Vascular: Yes: CAD, HTN, Hyperlipdemia Pulmonary: Yes: Pulmonary Embolus (associated with DVT) Gastrointestinal: Yes: Cancer (Pancreatic cancr dx'ed 08/10, Right colon cancer resected 1990) Renal/: Yes: BPH, Renal Calculi (s/p ESWL) Musculoskeletal: Yes: Osteoarthritis - Past Surgical History Past Surgical History: Yes: Cataract Removal (bilateral), Colonoscopy, Tonsillectomy (surgical excision of right renal stones), Upper Endoscopy - Alcohol/Substance Use Hx Alcohol Use: Yes (socially until chemo began) History of Substance Use: reports: None - Smoking History Smoking history: Former smoker Have you smoked in the past 12 months: No Aproximately how many cigarettes per day: 0 If you are a former smoker, when did you quit?: 1953 - Social History Usual Living Arrangement: With Spouse ADL: Independent Occupation: retired mailman History of Recent Travel: No Home Medications - Allergies Allergies/Adverse Reactions: Allergies Allergy/AdvReac Type Severity Reaction Status Date / Time No Known Allergies Allergy Verified 11/08/17 22:28 - Home Medications Home Medications: Ambulatory Orders Amlodipine Besylate [Norvasc -] 10 mg PO DAILY 07/26/12 Lansoprazole [Prevacid -] 30 mg PO DAILY 07/26/12 Metoprolol Succinate [Toprol XL -] 50 mg PO DAILY 07/26/12 Montelukast Na [Singulair -] 10 mg PO HS 07/26/12 Aspirin 81 mg PO DAILY 08/15/12 Lactobacillus Acidophilus [Acidophilus] 1 each PO DAILY 08/15/12 [place]-3 Acid Ethyl Esters [Lovaza -] 2,000 mg PO DAILY 08/15/12 Red Yeast Rice 1,000 mg PO DAILY 08/15/12 Ranolazine [Ranexa -] 500 mg PO BID 08/24/13 Enoxaparin [Lovenox -] 0 mg SQ DAILY 11/09/17 Isosorbide Mononitrate [Isosorbide Mononitrate ER] 30 mg PO DAILY 11/09/17 Family Disease History - Family Disease History Family Disease History: Heart Disease: Father ( 72 of [place]), CA: Brother ( multiple myeloma), Sister (colon cancer @ age 58), Other: Mother ( 56 of CVA ) Review of Systems - Review of Systems Constitutional: reports: Fever, Loss of Appetite Neck: denies: Swollen Glands Cardiovascular: denies: Chest Pain Respiratory: denies: Cough, SOB Gastrointestinal: reports: Abdominal Pain. denies: Constipation, Diarrhea, Vomiting Genitourinary: reports: No Symptoms Musculoskeletal: reports: No Symptoms Hematology/Lymphatic: reports: No Symptoms Psychiatric: reports: Depression Physical Exam Vital Signs: Vital Signs Temperature 97.4 F L 11/09/17 22:04 Pulse Rate 86 11/09/17 22:04 Respiratory Rate 21 11/09/17 22:04 Blood Pressure 103/71 11/09/17 22:04 O2 Sat by Pulse Oximetry (%) 92 L 11/09/17 09:00 Constitutional: Yes: Well Nourished, Calm Eyes: Yes: Conjunctiva Clear HENT: Yes: Normocephalic Neck: No: Lymphadenopathy Cardiovascular: Yes: Regular Rate and Rhythm, S1, S2. No: Gallop, Murmur Respiratory: Yes: Regular, CTA Bilaterally Gastrointestinal: Yes: Normal Bowel Sounds, Soft. No: Hepatomegaly, Palpable Mass Edema: No Neurological: Yes: Alert, Oriented ...Motor Strength: WNL Psychiatric: Yes: Other (tearful) Labs: CBC, BMP 11/09/17 10:02 11/09/17 10:02 Assessment/Plan Recently diagnosed inoperable pancreatic cancer, (?s/p ERCP stenting), receiving systemic chemotherapy at [facility], presents with fever of undetermined origin. Details of chemotherapy regimen, and present timing in relation to his cycles, not known precisely, but patient indicates he has not received chemotherapy in the last 2 weeks Presently not neutropenic. Agree with empiric Abics. Blood and urine cultures pending. Stable mid-abdominal pain, without suggestion of acuity, reading of CT chest and abdomen pending. Apparently history of PE - continue full dose AC with LMWH as he was receiving at home. Will continue to follow patient with you.
[2017-11-10] MEDS ORDERED: PIPERACILLIN/TAZOBACTAM 4.5 GM VIAL IVPB ONE ×3 (01:39→17:24)
[2017-11-10] MEDS ORDERED: DEXTROSE 5%-WATER 100 ML IVPB ONE ×3 (01:40→17:24)
[2017-11-10] MEDS: PIPERACILLIN/TAZOB 4.5 GM 4.5 GM in DEXTROSE 5%-WATER 100 ML IVPB SCH ×3 (01:46→17:26)
[2017-11-10] MEDS ORDERED: oxyCODONE HCL 5 MG TABLET PO ONE (02:18)
[2017-11-10] MEDS: SODIUM CHLORIDE 0.9%/KCL 20 MEQ/1,000 ML INFUS.BAG IV SCH ×3 (04:17→18:05)
[2017-11-10] MEDS: INSULIN SLIDING SCALE (NOVOLOG) 1 VIAL SQ SCH ×4 (06:23→21:41)
[2017-11-10 07:47] LABS: ALBUMIN 1.8 g/dl (3.4-5.0); ANION GAP 9 (8-16); BLOOD UREA NITROGEN 19 mg/dL (7-18); CALCIUM 8.2 mg/dL (8.5-10.1); CHLORIDE 104 mmol/L (98-107); CO2 23 mmol/L (21-32); GLUCOSE,RANDOM 102 mg/dL (74-106); POTASSIUM 3.9 mmol/L (3.5-5.1); SGOT/AST 49 U/L (15-37); SGPT/ALT 38 U/L (12-78); SODIUM 136 mmol/L (136-145)
[2017-11-10 07:50] LABS: ALK PHOS 94 U/L (45-117); BILIRUBIN,TOTAL 0.6 mg/dL (0.2-1.0); CREATININE 1.1 mg/dL (0.7-1.3); TOT PROT 5.1 g/dl (6.4-8.2)
[2017-11-10] MEDS: RANOLAZINE E.R. 500 MG TABLET (FP) PO SCH ×2 (09:24→21:40)
[2017-11-10] MEDS: LACTOBACILLUS ACIDOPHILUS 1 TABLET PO SCH (09:24)
[2017-11-10] MEDS: OMEGA-3 ACID ETHYL ESTERS (FATTY-ACIDS) 1 GM CAPSULE (FP) PO SCH (09:24)
[2017-11-10] MEDS: ISOSORBIDE MONONITRATE 30 MG TAB.SR.24H (FP) PO SCH (09:25)
[2017-11-10] MEDS: ENOXAPARIN NA (PORCINE) 60 MG/0.6 ML DISP.SYRIN SQ SCH ×2 (09:25→21:41)
[2017-11-10] MEDS: ASPIRIN 81 MG CHEWABLE TABLETS PO SCH (09:25)
[2017-11-10] MEDS: PANTOPRAZOLE 40 MG TABLET (FP) PO SCH (09:25)
[2017-11-10] MEDS: VANCOMYCIN 1 GM PREMIX - 1 GM/200 ML BAG IVPB SCH (10:24)
--- NOTE | 2017-11-10 10:40 | PN ---
Progress Note, Physician Chief Complaint: ID Describes pain across the right flank pleuritic component Says not SOB on O2 Findng of PE on CT Was on Lovenox [employer] - Current Medication List Current Medications: Active Medications Aspirin (Asa -) 81 mg PO DAILY [facility] Last Admin: 11/10/17 09:25 Dose: 81 mg Enoxaparin Sodium (Lovenox -) 60 mg SQ BID [facility] Last Admin: 11/10/17 09:25 Dose: 60 mg Potassium Chloride/Sodium Chloride (Ns+20 Meq Kcl -) 20 meq in 1,000 mls @ 100 mls/hr IV ASDIR CHUY Last Admin: 11/10/17 04:17 Dose: 100 mls/hr Vancomycin HCl (Vancomycin 1 Gm Premix -) 1 gm in 200 mls @ 133.333 mls/hr IVPB BID@1100,2300 [facility]; Protocol Last Admin: 11/10/17 10:24 Dose: 133.333 mls/hr Piperacillin Sod/Tazobactam (Sod 4.5 gm/ Dextrose) 100 mls @ 200 mls/hr IVPB Q8H-IV [facility]; Protocol Last Admin: 11/10/17 09:26 Dose: 200 mls/hr Insulin Aspart (Novolog Vial Sliding Scale -) 1 vial SQ ACHS [facility]; Protocol Last Admin: 11/10/17 10:23 Dose: Not Given Isosorbide Mononitrate (Imdur -) 30 mg PO DAILY [facility] Last Admin: 11/10/17 09:25 Dose: 30 mg Lactobacillus Acidophilus (Bacid -) 1 tab PO DAILY [facility] Last Admin: 11/10/17 09:24 Dose: 1 tab Metoprolol Succinate (Toprol Xl -) 50 mg PO DAILY [facility] Last Admin: 11/10/17 09:25 Dose: 50 mg Montelukast Sodium (Singulair -) 10 mg PO HS [facility] Last Admin: 11/09/17 21:52 Dose: 10 mg Non-Formulary Medication (Red Yeast Rice [Red Yeast Rice]) 1,000 mg PO DAILY [facility] Xynim-2-Mhvn Ethyl Esters (Lovaza -) 2 gm PO DAILY [facility] Last Admin: 11/10/17 09:24 Dose: 2 gm Pantoprazole Sodium (Protonix -) 40 mg PO DAILY [facility] Last Admin: 11/10/17 09:25 Dose: 40 mg Ranolazine (Ranexa -) 500 mg PO BID CHUY Last Admin: 11/10/17 09:24 Dose: 500 mg - Objective Vital Signs: Vital Signs Temperature 98.5 F 11/10/17 05:47 Pulse Rate 88 11/10/17 05:47 Respiratory Rate 20 11/10/17 05:47 Blood Pressure 102/59 11/10/17 05:47 O2 Sat by Pulse Oximetry (%) 95 11/10/17 08:34 Constitutional: Yes: Mild Distress HENT: Yes: WNL, Atraumatic Neck: Yes: WNL, Supple Cardiovascular: Yes: Regular Rate and Rhythm, S1, S2. No: Murmur Respiratory: Yes: WNL, Regular, CTA Bilaterally, Diminished Labs: CBC, BMP 11/09/17 10:02 11/10/17 06:30 INR, PTT INR 1.65 (0.82-1.09) H D 11/08/17 22:45 Assessment/Plan Microbiology 11/08/17 11:30 Urine - Urine Clean Catch Urine Culture - Final NO GROWTH OBTAINED 11/08/17 22:45 Blood - Peripheral Venous Blood Culture - Preliminary NO GROWTH OBTAINED AFTER 24 HOURS, INCUBATION TO CONTINUE FOR 4 DAYS. 11/08/17 22:45 Blood - Peripheral Venous Blood Culture - Preliminary NO GROWTH OBTAINED AFTER 24 HOURS, INCUBATION TO CONTINUE FOR 4 DAYS. Selected Entries 11/10/17 05:47 Temperature 98.5 F Respiratory 20 Rate Blood Pressure 102/59 Laboratory Tests 11/08/17 11/09/17 11/09/17 22:45 10:02 11:40 WBC 17.4 H 9.7 Hgb 8.4 L Hct 25.5 L Plt Count 200 D Neutrophils % (Manual) 83.0 H Band Neutrophils % 13.0 Monocytes % 2.7 L ABG pH 7.48 H ABG pCO2 at Pt Temp 25.2 L ABG pO2 at Pt Temp 75.8 Oxygen Flow Rate 3l BUN Creatinine 11/10/17 06:30 WBC Hgb Hct Plt Count Neutrophils % (Manual) Band Neutrophils % Monocytes % ABG pH ABG pCO2 at Pt Temp ABG pO2 at Pt Temp Oxygen Flow Rate BUN 19 H Creatinine 1.1 Assessment Fever ? secondary to acute PE found on CT ordered yesterday. Interestingly has been on Lovenox [employer] Hypercoagulable secondary pancreatic cancer Cultures negative Stop Vancomycin Will stop Zosyn in 24 hours of afebrile Advise hematology evaluation Rajesh get Duplex ZULEIMA Ernandez MD
--- NOTE | 2017-11-10 10:46 | PN ---
Progress Note, Physician Chief Complaint: Pulmonary Embolism History of Present Illness: NAD sitting at the edge of the bed Spoke to for 25 mins over the phone Follows [facility] oncologist Rocio Ricci As per has been on Lovenox 100 mg SQ daily 11/09/17-CTA= PE in RLL pulmonary artery branches, Previous PE in 2013 in left upper lobe and RLL pulmonary artery branches - Current Medication List Current Medications: Active Medications Aspirin (Asa -) 81 mg PO DAILY [facility] Last Admin: 11/10/17 09:25 Dose: 81 mg Enoxaparin Sodium (Lovenox -) 60 mg SQ BID [facility] Last Admin: 11/10/17 09:25 Dose: 60 mg Potassium Chloride/Sodium Chloride (Ns+20 Meq Kcl -) 20 meq in 1,000 mls @ 100 mls/hr IV ASDIR [facility] Last Admin: 11/10/17 04:17 Dose: 100 mls/hr Piperacillin Sod/Tazobactam (Sod 4.5 gm/ Dextrose) 100 mls @ 200 mls/hr IVPB Q8H-IV [facility]; Protocol Last Admin: 11/10/17 09:26 Dose: 200 mls/hr Insulin Aspart (Novolog Vial Sliding Scale -) 1 vial SQ ACHS [facility]; Protocol Last Admin: 11/10/17 10:23 Dose: Not Given Isosorbide Mononitrate (Imdur -) 30 mg PO DAILY [facility] Last Admin: 11/10/17 09:25 Dose: 30 mg Lactobacillus Acidophilus (Bacid -) 1 tab PO DAILY [facility] Last Admin: 11/10/17 09:24 Dose: 1 tab Metoprolol Succinate (Toprol Xl -) 50 mg PO DAILY [facility] Last Admin: 11/10/17 09:25 Dose: 50 mg Montelukast Sodium (Singulair -) 10 mg PO HS [facility] Last Admin: 11/09/17 21:52 Dose: 10 mg Non-Formulary Medication (Red Yeast Rice [Red Yeast Rice]) 1,000 mg PO DAILY [facility] [id number] Ethyl Esters (Lovaza -) 2 gm PO DAILY [facility] Last Admin: 11/10/17 09:24 Dose: 2 gm Pantoprazole Sodium (Protonix -) 40 mg PO DAILY [facility] Last Admin: 11/10/17 09:25 Dose: 40 mg Ranolazine (Ranexa -) 500 mg PO BID [facility] Last Admin: 11/10/17 09:24 Dose: 500 mg - Objective Vital Signs: Vital Signs Temperature 98.5 F 11/10/17 05:47 Pulse Rate 88 11/10/17 05:47 Respiratory Rate 20 11/10/17 05:47 Blood Pressure 102/59 11/10/17 05:47 O2 Sat by Pulse Oximetry (%) 95 11/10/17 08:34 Constitutional: Yes: Well Nourished, No Distress, Calm Cardiovascular: Yes: Regular Rate and Rhythm Respiratory: Yes: Regular Gastrointestinal: Yes: Normal Bowel Sounds, Soft Musculoskeletal: Yes: WNL Extremities: Yes: WNL Edema: No Peripheral Pulses WNL: Yes Neurological: Yes: Alert, Oriented Psychiatric: Yes: Alert, Oriented Labs: CBC, BMP 11/09/17 10:02 11/10/17 06:30 INR, PTT INR 1.65 (0.82-1.09) H D 11/08/17 22:45 Problem List - Problems (1) Pulmonary embolism Assessment/Plan: -CTA reviewed -Hematology on board -Lovenox 60 bid Code(s): I26.99 - OTHER PULMONARY EMBOLISM WITHOUT ACUTE COR PULMONALE (2) Fever Assessment/Plan: -Resolved -UC negative -BC preliminary negative -CT abd/pelvis-no abscess-no acute process -Seen by ID -IV abx-vanco discontinued, Continue Zosyn as per ID, if afebrile for 24 hours, d/c in AM Code(s): R50.9 - FEVER, UNSPECIFIED (3) Pancreatic cancer Assessment/Plan: -Oncology on board -Seen by GI -next Chemo due next week -Sees Oncologist at [facility] Rocio Ricci MD outpatient Code(s): C25.9 - MALIGNANT NEOPLASM OF PANCREAS, UNSPECIFIED Assessment/Plan see problem list Physical therapy
[2017-11-10 11:09] LABS: BASO % 0.3 % (0-2.0); EOS % 0.3 % (0-4.5); HEMATOCRIT 27.5 % (35.4-49); HEMOGLOBIN 9.1 GM/dL (11.7-16.9); LYMPH % 2.7 % (8-40); MCH 28.3 pg (25.7-33.7); MEAN CELL VOLUME 85.6 fl (80-96); MEAN PLT VOLUME 9.6 fl (7.5-11.1); MONO % 5.8 % (3.8-10.2); NEUT % 90.9 % (42.8-82.8); PLATELET COUNT 210 K/MM3 (134-434); RBC 3.21 M/mm3 (4.00-5.60); RDW 16.8 % (11.9-15.9); WHITE BLOOD COUNT 15.9 K/mm3 (4.0-10.0)
--- NOTE | 2017-11-10 11:09 | PN ---
Progress Note (short form) - Note Progress Note: PULMONARY Denies shortness of breath, cough or wheezing. CTA chest yesterday showing small subsegmental RLL PE, bibasilar atelectasis. Vital Signs Period Temp Pulse Resp BP Sys/Olivares Pulse Ox Last 24 Hr 97.4 F-98.5 F 81-88 20-21 95-103/56-71 95-96 Gen: NAD at rest Heart: RRR Lung: decreased breath sounds at the bases Abd: soft, nontender Ext: no edema Active Medications Amino Acids (Prosource No Carb Liquid Pkt) 30 ml PO BID@0800,1730 [facility] Aspirin (Asa -) 81 mg PO DAILY [facility] Last Admin: 11/10/17 09:25 Dose: 81 mg Enoxaparin Sodium (Lovenox -) 60 mg SQ BID [facility] Last Admin: 11/10/17 09:25 Dose: 60 mg Potassium Chloride/Sodium Chloride (Ns+20 Meq Kcl -) 20 meq in 1,000 mls @ 100 mls/hr IV ASDIR [facility] Last Admin: 11/10/17 04:17 Dose: 100 mls/hr Piperacillin Sod/Tazobactam (Sod 4.5 gm/ Dextrose) 100 mls @ 200 mls/hr IVPB Q8H-IV [facility]; Protocol Last Admin: 11/10/17 09:26 Dose: 200 mls/hr Insulin Aspart (Novolog Vial Sliding Scale -) 1 vial SQ ACHS [facility]; Protocol Last Admin: 11/10/17 10:23 Dose: Not Given Isosorbide Mononitrate (Imdur -) 30 mg PO DAILY [facility] Last Admin: 11/10/17 09:25 Dose: 30 mg Lactobacillus Acidophilus (Bacid -) 1 tab PO DAILY [facility] Last Admin: 11/10/17 09:24 Dose: 1 tab Metoprolol Succinate (Toprol Xl -) 50 mg PO DAILY [facility] Last Admin: 11/10/17 09:25 Dose: 50 mg Montelukast Sodium (Singulair -) 10 mg PO HS [facility] Last Admin: 11/09/17 21:52 Dose: 10 mg Non-Formulary Medication (Red Yeast Rice [Red Yeast Rice]) 1,000 mg PO DAILY [facility] Notav-2-[id number] Ethyl Esters (Lovaza -) 2 gm PO DAILY [facility] Last Admin: 11/10/17 09:24 Dose: 2 gm Pantoprazole Sodium (Protonix -) 40 mg PO DAILY [facility] Last Admin: 11/10/17 09:25 Dose: 40 mg Ranolazine (Ranexa -) 500 mg PO BID [facility] Last Admin: 11/10/17 09:24 Dose: 500 mg A/P RLL PE - ?chronic Metastatic Pancreatic Ca s/p biliary stent Atelectasis HTN h/o Colon Ca - continue LMWH - O2 as needed - continue empiric antibiotics - f/u cultures - incentive spirometry
[2017-11-10 11:33] LABS: ALBUMIN 1.8 g/dl (3.4-5.0); ALK PHOS 92 U/L (45-117); ANION GAP 12 (8-16); BILIRUBIN,TOTAL 0.7 mg/dL (0.2-1.0); BLOOD UREA NITROGEN 17 mg/dL (7-18); CALCIUM 7.9 mg/dL (8.5-10.1); CHLORIDE 104 mmol/L (98-107); CO2 21 mmol/L (21-32); CREATININE 1.1 mg/dL (0.7-1.3); GLUCOSE,RANDOM 125 mg/dL (74-106); POTASSIUM 3.8 mmol/L (3.5-5.1); SGOT/AST 47 U/L (15-37); SGPT/ALT 38 U/L (12-78); SODIUM 137 mmol/L (136-145); TOT PROT 5.2 g/dl (6.4-8.2)
[2017-11-10] MEDS: AMINO ACIDS/PROTEIN HYDROLYS 30 ML LIQUID.PKT PO SCH (16:39)
[2017-11-10] MEDS ORDERED: ACETAMINOPHEN 500 MG TABLET (FP) PO ONE (19:57)
[2017-11-10] MEDS: MONTELUKAST NA 10 MG TABLET PO SCH (21:41)
--- NOTE | 2017-11-10 23:00 | PN ---
GI Progress Note Subjective: GI NOte: Khoi is sundowning and thinks he is at home and that e nurses are threatening him. He keeps trying to get up out of bed despite my instructions to avoid doing so. His CT reveals that the pancreatic neoplasm has not changed in size and his LFTs remain normal. He does have a pulmonary embolism - Objective Vital Signs: Vital Signs Temperature 97.7 F 11/10/17 18:00 Pulse Rate 88 11/10/17 18:00 Respiratory Rate 20 11/10/17 18:00 Blood Pressure 117/49 11/10/17 18:00 O2 Sat by Pulse Oximetry (%) 95 11/10/17 08:34 Constitutional: Other (Confused) ...Auscultate: Yes: Normoactive Bowel Sounds ...Palpate: Yes: Soft, Other (nontender) Labs: CBC, BMP 11/10/17 10:53 11/10/17 10:53 INR, PTT INR 1.65 (0.82-1.09) H D 11/08/17 22:45 Laboratory Tests 11/10/17 10:53 Total Bilirubin 0.7 AST 47 H ALT 38 Alkaline Phosphatase 92 Albumin 1.8 L Problem List - Problems (1) Pancreatic cancer Assessment/Plan: Pancreatic neoplasm not in need of intervention for high grade obstruction due to his neoplasm Code(s): C25.9 - MALIGNANT NEOPLASM OF PANCREAS, UNSPECIFIED (2) History of pulmonary embolism Code(s): Z86.711 - PERSONAL HISTORY OF PULMONARY EMBOLISM (3) History of colon cancer Code(s): Z85.038 - PERSONAL HISTORY OF MALIGNANT NEOPLASM OF LARGE INTESTINE (4) Confusion state Assessment/Plan: Will order Seroquel 25mg Code(s): F44.89 - OTHER DISSOCIATIVE AND CONVERSION DISORDERS
[2017-11-10] MEDS ORDERED: QUEtiapine FUMARATE 25 MG TABLET (FP) PO ONE (23:15)
[2017-11-10] MEDS: MAGNESIUM OXIDE 400 MG TABLET (FP) PO SCH (23:23)
[2017-11-11] MEDS ORDERED: DEXTROSE 5%-WATER 100 ML IVPB ONE ×2 (01:23→09:20)
[2017-11-11] MEDS ORDERED: PIPERACILLIN/TAZOBACTAM 4.5 GM VIAL IVPB ONE ×2 (01:23→09:19)
[2017-11-11] MEDS: PIPERACILLIN/TAZOB 4.5 GM 4.5 GM in DEXTROSE 5%-WATER 100 ML IVPB SCH ×2 (01:33→09:48)
[2017-11-11 08:42] LABS: BASO % 0.1 % (0-2.0); EOS % 0.1 % (0-4.5); HEMATOCRIT 24.3 % (35.4-49); HEMOGLOBIN 8.1 GM/dL (11.7-16.9); LYMPH % 3.6 % (8-40); MCH 28.1 pg (25.7-33.7); MCHC 33.3 g/dl (32.0-35.9); MEAN CELL VOLUME 84.2 fl (80-96); MONO % 5.4 % (3.8-10.2); NEUT % 90.8 % (42.8-82.8); PLATELET COUNT 188 K/MM3 (134-434); RBC 2.89 M/mm3 (4.00-5.60); RDW 17.1 % (11.9-15.9); WHITE BLOOD COUNT 16.6 K/mm3 (4.0-10.0)
[2017-11-11] MEDS: AMINO ACIDS/PROTEIN HYDROLYS 30 ML LIQUID.PKT PO SCH ×2 (08:42→17:29)
[2017-11-11 09:00] LABS: ALBUMIN 1.8 g/dl (3.4-5.0); ANION GAP 10 (8-16); BILIRUBIN,TOTAL 0.8 mg/dL (0.2-1.0); BLOOD UREA NITROGEN 15 mg/dL (7-18); CALCIUM 8.1 mg/dL (8.5-10.1); CHLORIDE 107 mmol/L (98-107); CO2 22 mmol/L (21-32); GLUCOSE,RANDOM 87 mg/dL (74-106); POTASSIUM 3.6 mmol/L (3.5-5.1); SODIUM 139 mmol/L (136-145)
[2017-11-11 09:02] LABS: ALK PHOS 87 U/L (45-117); CREATININE 0.9 mg/dL (0.7-1.3); SGOT/AST 39 U/L (15-37); SGPT/ALT 34 U/L (12-78); TOT PROT 4.9 g/dl (6.4-8.2)
[2017-11-11] MEDS: LACTOBACILLUS ACIDOPHILUS 1 TABLET PO SCH (09:49)
[2017-11-11] MEDS: PANTOPRAZOLE 40 MG TABLET (FP) PO SCH (09:49)
[2017-11-11] MEDS: RANOLAZINE E.R. 500 MG TABLET (FP) PO SCH ×2 (09:49→21:36)
[2017-11-11] MEDS: ISOSORBIDE MONONITRATE 30 MG TAB.SR.24H (FP) PO SCH (09:49)
[2017-11-11] MEDS: MAGNESIUM OXIDE 400 MG TABLET (FP) PO SCH ×2 (09:49→21:36)
[2017-11-11] MEDS: OMEGA-3 ACID ETHYL ESTERS (FATTY-ACIDS) 1 GM CAPSULE (FP) PO SCH (09:49)
[2017-11-11] MEDS: SODIUM CHLORIDE 0.9%/KCL 20 MEQ/1,000 ML INFUS.BAG IV SCH (09:49)
[2017-11-11] MEDS: ASPIRIN 81 MG CHEWABLE TABLETS PO SCH (09:49)
[2017-11-11] MEDS: ENOXAPARIN NA (PORCINE) 60 MG/0.6 ML DISP.SYRIN SQ SCH ×2 (09:50→21:37)
--- NOTE | 2017-11-11 10:13 | PN ---
Progress Note, Physician Chief Complaint: Pulmonary Embolism History of Present Illness: NAD sitting at the edge of the bed Spoke to for 25 mins over the phone Follows [facility] oncologist Rocio Ricci As per has been on Lovenox 100 mg SQ daily 11/09/17-CTA= PE in RLL pulmonary artery branches, Previous PE in 2013 in left upper lobe and RLL pulmonary artery branches Confused this AM, was extremely combative last night. CT head without contrast shows infarct of undetermined age - Current Medication List Current Medications: Active Medications Amino Acids (Prosource No Carb Liquid Pkt) 30 ml PO BID@0800,1730 [facility] [place] Last Admin: 11/11/17 08:42 Dose: 30 ml Aspirin (Asa -) 81 mg PO DAILY [facility] [place] Last Admin: 11/11/17 09:49 Dose: 81 mg Enoxaparin Sodium (Lovenox -) 60 mg SQ BID [facility] [place] Last Admin: 11/11/17 09:50 Dose: 60 mg Potassium Chloride/Sodium Chloride (Ns+20 Meq Kcl -) 20 meq in 1,000 mls @ 100 mls/hr IV ASDIR [facility] [place] Last Admin: 11/11/17 09:49 Dose: 100 mls/hr Piperacillin Sod/Tazobactam (Sod 4.5 gm/ Dextrose) 100 mls @ 200 mls/hr IVPB Q8H-IV [facility]; Protocol Last Admin: 11/11/17 09:48 Dose: 200 mls/hr Insulin Aspart (Novolog Vial Sliding Scale -) 1 vial SQ ACHS [facility] [place]; Protocol Last Admin: 11/10/17 21:41 Dose: Not Given Isosorbide Mononitrate (Imdur -) 30 mg PO DAILY [facility] [place] Last Admin: 11/11/17 09:49 Dose: 30 mg Lactobacillus Acidophilus (Bacid -) 1 tab PO DAILY [facility] [place] Last Admin: 11/11/17 09:49 Dose: 1 tab Magnesium Oxide (Mag-Ox -) 400 mg PO BID [facility] [place] Last Admin: 11/11/17 09:49 Dose: 400 mg Metoprolol Succinate (Toprol Xl -) 50 mg PO DAILY [facility] [place] Last Admin: 11/11/17 09:49 Dose: 50 mg Montelukast Sodium (Singulair -) 10 mg PO HS [facility] [place] Last Admin: 11/10/17 21:41 Dose: 10 mg Lrjbl-8-[id number] Ethyl Esters (Lovaza -) 2 gm PO DAILY [facility] [place] Last Admin: 11/11/17 09:49 Dose: 2 gm Pantoprazole Sodium (Protonix -) 40 mg PO DAILY [facility] [place] Last Admin: 11/11/17 09:49 Dose: 40 mg Ranolazine (Ranexa -) 500 mg PO BID [facility] [place] Last Admin: 11/11/17 09:49 Dose: 500 mg - Objective Vital Signs: Vital Signs Temperature 98.4 F 11/11/17 06:00 Pulse Rate 89 11/11/17 06:00 Respiratory Rate 20 11/11/17 06:00 Blood Pressure 107/67 11/11/17 06:00 O2 Sat by Pulse Oximetry (%) 95 11/10/17 22:00 Constitutional: Yes: Well Nourished, No Distress, Calm Cardiovascular: Yes: Regular Rate and Rhythm Respiratory: Yes: Regular Gastrointestinal: Yes: Normal Bowel Sounds, Soft Musculoskeletal: Yes: Muscle Weakness Edema: No Peripheral Pulses WNL: Yes Neurological: Yes: Alert, Confusion Psychiatric: Yes: Alert Labs: CBC, BMP 11/11/17 07:40 11/11/17 07:40 INR, PTT INR 1.65 (0.82-1.09) H D 11/08/17 22:45 Problem List - Problems (1) Pulmonary embolism Assessment/Plan: -CTA reviewed -Hematology on board -Lovenox 60 bid Code(s): I26.99 - OTHER PULMONARY EMBOLISM WITHOUT ACUTE COR PULMONALE (2) Fever Assessment/Plan: -Resolved -UC negative -BC preliminary Gram + cocci in clusters -CT abd/pelvis-no abscess-no acute process -Seen by ID -IV abx- restart vanco, Continue Zosyn Code(s): R50.9 - FEVER, UNSPECIFIED (3) Pancreatic cancer Assessment/Plan: -Oncology on board -Seen by GI -next Chemo due next week -Sees Oncologist at [facility] Rocio Ricci MD outpatient Code(s): C25.9 - MALIGNANT NEOPLASM OF PANCREAS, UNSPECIFIED (4) Acute alteration in mental status Assessment/Plan: -neurology consult -MRI with and without contrast- r/o TIA or Mets -U/S carotid -safety precautions Code(s): R41.82 - ALTERED MENTAL STATUS, UNSPECIFIED Assessment/Plan see problem list
[2017-11-11] MEDS: INSULIN SLIDING SCALE (NOVOLOG) 1 VIAL SQ SCH ×3 (11:47→21:37)
[2017-11-11] MEDS ORDERED: VANCOMYCIN 1,250 MG in DEXTROSE 5%-WATER - 250 ML IVPB ONE (12:00)
--- NOTE | 2017-11-11 13:58 | PN ---
Progress Note (short form) - Note Progress Note: Patient seen and examined Complains of being cold and of crampy abdominal pains. Moving bowels Last Vital Signs Temp Pulse Resp BP Pulse Ox 98.4 F 93 H 20 113/76 94 L 11/11/17 10:00 11/11/17 10:00 11/11/17 10:00 11/11/17 10:00 11/11/17 09:00 HEENT: RADHA, EOM Intact Oropharynx: No thrush, No mucositis Cor: RSR, No murmurs, No gallops Lungs: Clear to P&A Abd: Soft, Normal bowel sounds, No organomegaly Ext:No significant edema Skin: No rashes, Integument intact CBC, BMP 11/11/17 07:40 11/11/17 07:40 Current Medications Generic Name Dose Route Start Last Admin Trade Name Freq PRN Reason Stop Dose Admin Amino Acids 30 ml 11/10/17 17:30 11/11/17 08:42 Prosource No Carb Liquid Pkt PO 30 ml BID@0800,1730 [facility] Administration Aspirin 81 mg 11/09/17 10:00 11/11/17 09:49 Asa - PO 81 mg DAILY [facility] Administration Enoxaparin Sodium 60 mg 11/09/17 10:00 11/11/17 09:50 Lovenox - SQ 60 mg BID [facility] Administration Potassium Chloride/Sodium Chloride 20 meq in 1,000 mls @ 100 mls/hr 11/09/17 09:15 11/11/17 09:49 Ns+20 Meq Kcl - IV 100 mls/hr ASDIR [facility] Administration Piperacillin Sod/Tazobactam 100 mls @ 200 mls/hr 11/09/17 18:00 11/11/17 09: 48 Sod 4.5 gm/ Dextrose IVPB 200 mls/hr Q8H-IV [facility] Administration Protocol Vancomycin HCl 1,250 mg/ 250 mls @ 250 mls/2 hr 11/11/17 12:00 11/11/17 12:47 Dextrose IVPB 11/11/17 13:59 250 mls/2 hr ONCE ONE Administration Protocol Insulin Aspart 1 vial 11/09/17 11:00 11/11/17 11:47 Novolog Vial Sliding Scale - SQ Not Given ACHS [facility] Protocol Isosorbide Mononitrate 30 mg 11/09/17 10:00 11/11/17 09:49 Imdur - PO 30 mg DAILY [facility] Administration Lactobacillus Acidophilus 1 tab 11/09/17 10:00 11/11/17 09:49 Bacid - PO 1 tab DAILY [facility] Administration Lorazepam 0.5 mg 11/11/17 15:00 Ativan Injection - IVPUSH 11/11/17 15:01 ONCE ONE Magnesium Oxide 400 mg 11/10/17 22:15 11/11/17 09:49 Mag-Ox - PO 400 mg BID [facility] Administration Metoprolol Succinate 50 mg 11/09/17 10:00 11/11/17 09:49 Toprol Xl - PO 50 mg DAILY [facility] Administration Montelukast Sodium 10 mg 11/09/17 22:00 11/10/17 21:41 Singulair - PO 10 mg HS [facility] Administration Halyu-9-Mllo Ethyl Esters 2 gm 11/09/17 10:00 11/11/17 09:49 Lovaza - PO 2 gm DAILY [facility] Administration Pantoprazole Sodium 40 mg 11/09/17 10:00 11/11/17 09:49 Protonix - PO 40 mg DAILY [facility] Administration Ranolazine 500 mg 11/09/17 10:00 11/11/17 09:49 Ranexa - PO 500 mg BID [facility] Administration Impression: Pancreatic ca s/p chemotherapy Febrile state- positive blood cultures Hypercoagulable state- on lovenox P.E. Anemia suggest - antibiotics per I.D. might try tramadol for pains monitor cbc- transfuse prn further fall in Hb/Hct check stool guaics on asa and lovenox
--- NOTE | 2017-11-11 13:59 | PN ---
Progress Note, Physician Chief Complaint: ID More comfortable but expressed his wish to today Vancomycin resumed positive blood culture GPC chain Tmax 103.5 admission has been without fever Not wearing O2 - Current Medication List Current Medications: Active Medications Amino Acids (Prosource No Carb Liquid Pkt) 30 ml PO BID@0800,1730 [facility] Last Admin: 11/11/17 08:42 Dose: 30 ml Aspirin (Asa -) 81 mg PO DAILY [facility] Last Admin: 11/11/17 09:49 Dose: 81 mg Enoxaparin Sodium (Lovenox -) 60 mg SQ BID [facility] Last Admin: 11/11/17 09:50 Dose: 60 mg Potassium Chloride/Sodium Chloride (Ns+20 Meq Kcl -) 20 meq in 1,000 mls @ 100 mls/hr IV ASDIR [facility] Last Admin: 11/11/17 09:49 Dose: 100 mls/hr Piperacillin Sod/Tazobactam (Sod 4.5 gm/ Dextrose) 100 mls @ 200 mls/hr IVPB Q8H-IV [facility]; Protocol Last Admin: 11/11/17 09:48 Dose: 200 mls/hr Vancomycin HCl 1,250 mg/ (Dextrose) 250 mls @ 250 mls/2 hr IVPB ONCE ONE; Protocol Stop: 11/11/17 13:59 Last Admin: 11/11/17 12:47 Dose: 250 mls/2 hr Insulin Aspart (Novolog Vial Sliding Scale -) 1 vial SQ ACHS [facility]; Protocol Last Admin: 11/11/17 11:47 Dose: Not Given Isosorbide Mononitrate (Imdur -) 30 mg PO DAILY [facility] Last Admin: 11/11/17 09:49 Dose: 30 mg Lactobacillus Acidophilus (Bacid -) 1 tab PO DAILY [facility] Last Admin: 11/11/17 09:49 Dose: 1 tab Lorazepam (Ativan Injection -) 0.5 mg IVPUSH ONCE ONE Stop: 11/11/17 15:01 Magnesium Oxide (Mag-Ox -) 400 mg PO BID [facility] Last Admin: 11/11/17 09:49 Dose: 400 mg Metoprolol Succinate (Toprol Xl -) 50 mg PO DAILY [facility] Last Admin: 11/11/17 09:49 Dose: 50 mg Montelukast Sodium (Singulair -) 10 mg PO HS [facility] Last Admin: 07/19/18 21:41 Dose: 10 mg Ykknp-2-Fbea Ethyl Esters (Lovaza -) 2 gm PO DAILY [facility] Last Admin: 11/11/17 09:49 Dose: 2 gm Pantoprazole Sodium (Protonix -) 40 mg PO DAILY [facility] Last Admin: 11/11/17 09:49 Dose: 40 mg Ranolazine (Ranexa -) 500 mg PO BID [facility] Last Admin: 11/11/17 09:49 Dose: 500 mg - Objective Vital Signs: Vital Signs Temperature 98.4 F 11/11/17 10:00 Pulse Rate 93 H 11/11/17 10:00 Respiratory Rate 11/11/17 10:00 Blood Pressure 113/76 11/11/17 10:00 O2 Sat by Pulse Oximetry (%) 94 L 11/11/17 09:00 Constitutional: Yes: No Distress Cardiovascular: Yes: Regular Rate and Rhythm, S1, S2 Respiratory: Yes: WNL, Regular, CTA Bilaterally. No: Rales, Rhonchi Gastrointestinal: Yes: Soft. No: Tenderness, Tenderness, Rebound Extremities: No: Cold, Cool, Cyanosis Edema: No Labs: CBC, BMP 11/11/17 07:40 11/11/17 07:40 INR, PTT INR 1.65 (0.82-1.09) H D 11/08/17 22:45 Assessment/Plan Microbiology 11/08/17 11:30 Urine - Urine Clean Catch Urine Culture - Final NO GROWTH OBTAINED 11/08/17 22:45 Blood - Peripheral Venous Blood Culture - Preliminary Pending Organism 11/08/17 22:45 Blood - Peripheral Venous Blood Culture - Preliminary NO GROWTH OBTAINED AFTER 48 HOURS, INCUBATION TO CONTINUE FOR 3 DAYS. Laboratory Tests 11/08/17 11/11/17 22:45 07:40 WBC 16.6 H Hgb 8.1 L Plt Count 188 INR 1.65 H D Assessment Sepsis syndrome on admission Found to have acute PE. Now positive blood culture gram positive chains 1 bottle but with a port have to consider might be real. Also ?? could he have had septic embolus from his port. HE has had PE in the past and is hypercoagulable from his cancer. 1. Resume Vancomycin 1 gram q 12h and check levels 2. Stop Zosyn 3. ECHO 4. CRP ESR 5. Repeat blood cultures via port 6. Anticoagulation Oma RIVERO
--- NOTE | 2017-11-11 14:42 | CONSULT ---
Consult - text type - Consultation Consultation Note: Neurology CHIEF COMPLAINT: AMS HISTORY OF PRESENT ILLNESS: 87 year old male with a significant past medical history of pancreatic CA ( diagnosed recently) on chemo, last dose 2 weeks ago presented to the ED with fever x 2 days with associated malaise. Denied any other symptoms. Denied SOB, cough, chest pain, abdominal pain, N/V/D, dysuria, frequency. Seen at bedside with and grandson who transported him to the hospital and is also an EMT. the patient was awake and alert but was visibly depressed He had indicated based on infectious disease note that "he wanted to today ". He was able to tell me the name of the president but was not fully answering other questions such as where he is, though he indicated being aware that he is in the hospital. He is being managed for underlying infection and certainly this can cause altered mental status but he is not lethargic. I do believe that his depression is part of the reason for his mental status as he seems to exhibit poor effort and disinterested in his overall state. CT head compelted and reviewed, no acute changes. (Interp says dense MCA sign, body of report indicates no dense MCA sign, no acute changes noted). Recent Travel: pt denies PAST MEDICAL HISTORY: pancreatic CA, HTN, ASHD, PE/DVT 2013, GERD, hiatal hernia, colon CA 1990, kidney stones PAST SURGICAL HISTORY: R hemicolectomy B/L cataract Social History: Smoking: pt denies Alcohol: pt denies Drugs: pt denies Family History: mother age 56, CVA father age 72, atherosclerosis brother age 33, Hodkin's lymphoma brother age 50, multiple myeloma sister age 58, cancer, unkown type sister in her 50s, embolism Allergies No Known Allergies Allergy (Verified 11/08/17 22:28) HOME MEDICATIONS: 3 Medication Instructions Recorded Amlodipine Besylate [Norvasc -] 10 mg PO DAILY 07/26/12 Lansoprazole [Prevacid -] 30 mg PO DAILY 07/26/12 Metoprolol Succinate [Toprol XL -] 50 mg PO DAILY 07/26/12 Montelukast Na [Singulair -] 10 mg PO HS 07/26/12 Aspirin 81 mg PO DAILY 08/15/12 Lactobacillus Acidophilus 1 each PO DAILY 08/15/12 [Acidophilus] [place]-3 Acid Ethyl Esters [Lovaza 2,000 mg PO DAILY 08/15/12 -] Red Yeast Rice 1,000 mg PO DAILY 08/15/12 Ranolazine [Ranexa -] 500 mg PO BID 08/24/13 Enoxaparin [Lovenox -] unkown dose SQ DAILY 11/09/17 Isosorbide Mononitrate [Isosorbide 30 mg PO DAILY 11/09/17 Mononitrate ER] REVIEW OF SYSTEMS CONSTITUTIONAL: Present: fever, malaise Absent: chills, diaphoresis, generalized weakness, loss of appetite, weight change HEENT: Absent: rhinorrhea, nasal congestion, throat pain, throat swelling, difficulty swallowing, mouth swelling, ear pain, eye pain, visual changes CARDIOVASCULAR: Absent: chest pain, syncope, palpitations, irregular heart rate, lightheadedness , peripheral edema RESPIRATORY: Absent: cough, shortness of breath, dyspnea with exertion, orthopnea, wheezing, stridor, hemoptysis GASTROINTESTINAL: Absent: abdominal pain, abdominal distension, nausea, vomiting, diarrhea, constipation, melena, hematochezia GENITOURINARY: Absent: dysuria, frequency, urgency, hesitancy, hematuria, flank pain, genital pain MUSCULOSKELETAL: Absent: myalgia, arthralgia, joint swelling, back pain, neck pain SKIN: Absent: rash, itching, pallor HEMATOLOGIC/IMMUNOLOGIC: Absent: easy bleeding, easy bruising, lymphadenopathy, frequent infections ENDOCRINE: Absent: unexplained weight gain, unexplained weight loss, heat intolerance, cold intolerance NEUROLOGIC: Absent: headache, focal weakness or paresthesias, dizziness, unsteady gait, seizure, mental status changes, bladder or bowel incontinence PSYCHIATRIC: Absent: anxiety, depression, suicidal or homicidal ideation, hallucinations. Vital Signs Period Temp Pulse Resp BP Sys/Olivares Pulse Ox Last 24 Hr 97.7 F-98.5 F 85-93 20-20 107-124/49-78 94-95 GENERAL: Awake, alert, and fully oriented, in no acute distress. HEAD: Normal with no signs of trauma. EYES: Pupils equal, round and reactive to light, extraocular movements intact, sclera anicteric, conjunctiva clear. No lid lag. EARS, NOSE, THROAT: Ears normal, nares patent, oropharynx clear without exudates. Moist mucous membranes. NECK: Normal range of motion, supple without lymphadenopathy, JVD, or masses. LUNGS: Breath sounds equal, clear to auscultation bilaterally. No wheezes. No accessory muscle use. crackles bilat bases HEART: Regular rate and rhythm, normal S1 and S2 without murmur, rub or gallop. ABDOMEN: Soft, nontender, not distended, normoactive bowel sounds, no guarding, no rebound, no masses. No hepatomegaly or splenomegaly. MUSCULOSKELETAL: Normal range of motion at all joints. No bony deformities or tenderness. No CVA tenderness. UPPER EXTREMITIES: 2+ pulses, warm, well-perfused. No cyanosis. No clubbing. No peripheral edema. LOWER EXTREMITIES: 2+ pulses, warm, well-perfused. No calf tenderness. No peripheral edema. NEUROLOGICAL: Cranial nerves II-XII intact. Normal speech. Moves all extremities grossly, sensory intact PSYCHIATRIC: Cooperative. Good eye contact. Appropriate mood and affect. SKIN: Warm, dry, normal turgor, no rashes or lesions noted, normal capillary refill. CBCD WBC 16.6 K/mm3 (4.0-10.0) H 11/11/17 07:40 RBC 2.89 M/mm3 (4.00-5.60) L 11/11/17 07:40 Hgb 8.1 GM/dL (11.7-16.9) L 11/11/17 07:40 Hct 24.3 % (35.4-49) L 11/11/17 07:40 MCV 84.2 fl (80-96) 11/11/17 07:40 MCHC 33.3 g/dl (32.0-35.9) 11/11/17 07:40 RDW 17.1 % (11.9-15.9) H 11/11/17 07:40 Plt Count 188 K/MM3 (134-434) 11/11/17 07:40 MPV 10.0 fl (7.5-11.1) 11/11/17 07:40 CMP Sodium 139 mmol/L (136-145) 11/11/17 07:40 Potassium 3.6 mmol/L (3.5-5.1) 11/11/17 07:40 Chloride 107 mmol/L (98-107) 11/11/17 07:40 Carbon Dioxide 22 mmol/L (21-32) 11/11/17 07:40 Anion Gap 10 (8-16) 11/11/17 07:40 BUN 15 mg/dL (7-18) 11/11/17 07:40 Creatinine 0.9 mg/dL (0.7-1.3) 11/11/17 07:40 Creat Clearance w eGFR > 60 (>60) 11/11/17 07:40 Calcium 8.1 mg/dL (8.5-10.1) L 11/11/17 07:40 Total Bilirubin 0.8 mg/dL (0.2-1.0) 11/11/17 07:40 AST 39 U/L (15-37) H 11/11/17 07:40 ALT 34 U/L (12-78) 11/11/17 07:40 Alkaline Phosphatase 87 U/L (45-117) 11/11/17 07:40 Total Protein 4.9 g/dl (6.4-8.2) L 11/11/17 07:40 Albumin 1.8 g/dl (3.4-5.0) L 11/11/17 07:40 Ct head reviewed ASSESSMENT/PLAN: 87 year old male with a significant past medical history of pancreatic CA ( diagnosed recently) on chemo, last dose 2 weeks ago presented to the ED with fever x 2 days with associated malaise. Denied any other symptoms. Denied SOB, cough, chest pain, abdominal pain, N/V/D, dysuria, frequency. Seen at bedside with and grandson who transported him to the hospital and is also an EMT. the patient was awake and alert but was visibly depressed He had indicated based on infectious disease note that "he wanted to today ". He was able to tell me the name of the president but was not fully answering other questions such as where he is, though he indicated being aware that he is in the hospital. He is being managed for underlying infection and certainly this can cause altered mental status but he is not lethargic. I do believe that his depression is part of the reason for his mental status as he seems to exhibit poor effort and disinterested in his overall state. Continue IV abx [facility] infectious mgmt ID follow up hydration and needed Consider antidepressant or psych consult Continue reorientation Onc follow up regarding pancreatic cancer Sanitarian Aide at bedside as well, continue pastoral care Encouragement provided Family in agreement
--- NOTE | 2017-11-11 16:21 | ECHO ---
Name: CLAUDIA PEDERSEN Exam:Adult Echocardiogram Study Date: 11/11/2017 03:39 PM Age: 87 yrs Reason For Study: bacteremia Height: 65 in Weight: 165 lb BSA: 1.8 m2 MMode/2D Measurements & Calculations IVSd: 0.83 cm Ao root diam: 3.7 cm LVIDd: 4.6 cm LA dimension: 3.6 cm LVIDs: 3.0 cm LVPWd: 0.84 cm EDV(Teich): 97.8 ml TAPSE: 1.1 cm ESV(Teich): 35.8 ml RV S Royal: 17.8 cm/sec Doppler Measurements & Calculations MV E max royal: 55.9 cm/sec MR max royal: 426.7 cm/sec MV A max royal: 94.4 cm/sec MR max P.1 mmHg MV E/A: 0.59 MV dec time: 0.24 sec TR max royal: 198.2 cm/sec Med Peak E' Royal: 5.2 cm/sec TR max P.7 mmHg Med E/e': 10.8 Lat Peak E' Royal: 5.8 cm/sec Lat E/e': 9.6 Procedure The study was technically difficult with many images being suboptimal in quality. Left Ventricle Left ventricular systolic function is grossly normal. Right Ventricle The right ventricle is grossly normal size. The right ventricular systolic function is grossly normal . Atria Normal left and right atrial size and function. Mitral Valve There is moderate mitral annular calcification. No significant mitral valve stenosis. There is mild m itral regurgitation. Tricuspid Valve The tricuspid valve is normal in structure and function. There is mild tricuspid regurgitation. Aortic Valve There is mild to moderate aortic sclerosis.;. No hemodynamically significant valvular aortic stenosis . No aortic regurgitation is present. Pulmonic Valve The pulmonic valve is not well seen, but is grossly normal. There is no pulmonic valvular stenosis. Great Vessels Borderline aortic root dilatation. Pericardium/Pleura Trivial pericardial effusion not hemodynamically significant. Interpretation Summary The study was technically difficult with many images being suboptimal in quality. Left ventricular systolic function is grossly normal. There is moderate mitral annular calcification. There is mild mitral regurgitation. There is mild tricuspid regurgitation. There is mild to moderate aortic sclerosis.; Borderline aortic root dilatation. Trivial pericardial effusion not hemodynamically significant MD Juan Bob 11/11/2017 04:21 PM
[2017-11-11] MEDS ORDERED: LORazepam 2 MG/ML SDV VIAL IVPUSH ONE (21:45)
[2017-11-11] MEDS: MONTELUKAST NA 10 MG TABLET PO SCH (22:22)
[2017-11-11] MEDS: traMADol HCL 50 MG TABLET PO PRN (22:25)
[2017-11-12] MEDS: VANCOMYCIN 1,000 MG in DEXTROSE 5%-WATER - 250 ML IVPB SCH ×3 (00:55→23:42)
[2017-11-12] MEDS: SODIUM CHLORIDE 0.9%/KCL 20 MEQ/1,000 ML INFUS.BAG IV SCH (04:00)
[2017-11-12] MEDS: INSULIN SLIDING SCALE (NOVOLOG) 1 VIAL SQ SCH ×5 (06:27→22:07)
[2017-11-12 07:20] LABS: BASO % 0.3 % (0-2.0); EOS % 0.4 % (0-4.5); HEMATOCRIT 24.8 % (35.4-49); HEMOGLOBIN 8.3 GM/dL (11.7-16.9); MCH 28.1 pg (25.7-33.7); MCHC 33.5 g/dl (32.0-35.9); MEAN CELL VOLUME 83.7 fl (80-96); MEAN PLT VOLUME 9.8 fl (7.5-11.1); MONO % 7.6 % (3.8-10.2); NEUT % 84.7 % (42.8-82.8); PLATELET COUNT 202 K/MM3 (134-434); RBC 2.96 M/mm3 (4.00-5.60); RDW 16.9 % (11.9-15.9); WHITE BLOOD COUNT 12.7 K/mm3 (4.0-10.0)
[2017-11-12] MEDS: RED YEAST RICE PO SCH (08:38)
[2017-11-12] MEDS: AMINO ACIDS/PROTEIN HYDROLYS 30 ML LIQUID.PKT PO SCH ×2 (09:29→17:34)
[2017-11-12] MEDS: LACTOBACILLUS ACIDOPHILUS 1 TABLET PO SCH (09:35)
[2017-11-12] MEDS: ISOSORBIDE MONONITRATE 30 MG TAB.SR.24H (FP) PO SCH (09:35)
[2017-11-12] MEDS: RANOLAZINE E.R. 500 MG TABLET (FP) PO SCH ×2 (09:35→22:07)
[2017-11-12] MEDS: OMEGA-3 ACID ETHYL ESTERS (FATTY-ACIDS) 1 GM CAPSULE (FP) PO SCH (09:35)
[2017-11-12] MEDS: ASPIRIN 81 MG CHEWABLE TABLETS PO SCH (09:35)
[2017-11-12] MEDS: MAGNESIUM OXIDE 400 MG TABLET (FP) PO SCH ×2 (09:35→22:07)
[2017-11-12] MEDS: ENOXAPARIN NA (PORCINE) 60 MG/0.6 ML DISP.SYRIN SQ SCH ×2 (09:36→22:06)
[2017-11-12] MEDS: PANTOPRAZOLE 40 MG TABLET (FP) PO SCH (09:36)
[2017-11-12 09:49] LABS: ANISOCYTOSIS 1+; MACROCYTOSIS 0; PLATELET ESTIMATE NORMAL
[2017-11-12 10:36] LABS: ALBUMIN 1.8 g/dl (3.4-5.0); ALK PHOS 79 U/L (45-117); ANION GAP 9 (8-16); BILIRUBIN,TOTAL 0.5 mg/dL (0.2-1.0); BLOOD UREA NITROGEN 12 mg/dL (7-18); CHLORIDE 107 mmol/L (98-107); CO2 25 mmol/L (21-32); CREATININE 0.8 mg/dL (0.7-1.3); GLUCOSE,RANDOM 103 mg/dL (74-106); POTASSIUM 3.3 mmol/L (3.5-5.1); SGOT/AST 27 U/L (15-37); SGPT/ALT 28 U/L (12-78); SODIUM 141 mmol/L (136-145); TOT PROT 4.9 g/dl (6.4-8.2)
--- NOTE | 2017-11-12 11:39 | PN ---
Progress Note (short form) - Note Progress Note: Disoriented at night, otherwise no events. Tolerating diet w/o abdominal symptoms. Afebrile, Normal liver chemistry, Bili, ALP. Benign abdomen on exam. Continue current management.
--- NOTE | 2017-11-12 13:27 | PN ---
Progress Note, Physician - Current Medication List Current Medications: Active Medications Amino Acids (Prosource No Carb Liquid Pkt) 30 ml PO BID@0800,1730 [facility] Last Admin: 11/12/17 09:29 Dose: 30 ml Aspirin (Asa -) 81 mg PO DAILY [facility] Last Admin: 11/12/17 09:35 Dose: 81 mg Enoxaparin Sodium (Lovenox -) 60 mg SQ BID [facility] Last Admin: 11/12/17 09:36 Dose: 60 mg Potassium Chloride/Sodium Chloride (Ns+20 Meq Kcl -) 20 meq in 1,000 mls @ 100 mls/hr IV ASDIR [facility] Last Admin: 11/12/17 04:00 Dose: 100 mls/hr Vancomycin HCl 1,000 mg/ (Dextrose) 250 mls @ 166.667 mls/hr IVPB BID@0000, 1200 [facility]; Protocol Last Admin: 11/12/17 11:54 Dose: 166.667 mls/hr Insulin Aspart (Novolog Vial Sliding Scale -) 1 vial SQ ACHS [facility]; Protocol Last Admin: 11/12/17 12:29 Dose: Not Given Isosorbide Mononitrate (Imdur -) 30 mg PO DAILY [facility] Last Admin: 11/12/17 09:35 Dose: 30 mg Lactobacillus Acidophilus (Bacid -) 1 tab PO DAILY [facility] Last Admin: 11/12/17 09:35 Dose: 1 tab Magnesium Oxide (Mag-Ox -) 400 mg PO BID [facility] Last Admin: 11/12/17 09:35 Dose: 400 mg Metoprolol Succinate (Toprol Xl -) 50 mg PO DAILY [facility] Last Admin: 11/12/17 09:35 Dose: 50 mg Montelukast Sodium (Singulair -) 10 mg PO [facility] Last Admin: 11/11/17 22:22 Dose: 10 mg Llwhp-4-Kscc Ethyl Esters (Lovaza -) 2 gm PO DAILY [facility] Last Admin: 11/12/17 09:35 Dose: 2 gm Pantoprazole Sodium (Protonix -) 40 mg PO DAILY [facility] Last Admin: 11/12/17 09:36 Dose: 40 mg Ranolazine (Ranexa -) 500 mg PO BID [facility] Last Admin: 11/12/17 09:35 Dose: 500 mg Tramadol HCl (Ultram -) 50 mg PO Q8H PRN PRN Reason: PAIN LEVEL 4 - 6 Last Admin: 11/11/17 22:25 Dose: 50 mg - Objective Vital Signs: Vital Signs Temperature 97.6 F 11/12/17 09:46 Pulse Rate 93 H 11/12/17 09:46 Respiratory Rate 18 11/12/17 09:46 Blood Pressure 129/68 11/12/17 09:46 O2 Sat by Pulse Oximetry (%) 96 11/11/17 21:00 Cardiovascular: Yes: S1, S2 Respiratory: Yes: Regular, CTA Bilaterally Gastrointestinal: Yes: Normal Bowel Sounds, Soft Edema: No Neurological: Yes: Alert, Oriented Labs: CBC, BMP 11/12/17 06:15 11/12/17 06:15 INR, PTT INR 1.65 (0.82-1.09) H D 11/08/17 22:45 Problem List - Problems (1) Fever Code(s): R50.9 - FEVER, UNSPECIFIED (2) Pancreatic cancer Code(s): C25.9 - MALIGNANT NEOPLASM OF PANCREAS, UNSPECIFIED (3) DVT (deep venous thrombosis) Code(s): I82.409 - ACUTE EMBOLISM AND THOMBOS UNSP DEEP VN UNSP LOWER EXTREMITY (4) HTN (hypertension) Code(s): I10 - ESSENTIAL (PRIMARY) HYPERTENSION Assessment/Plan - Problems (1) Pulmonary embolism Assessment/Plan: -CTA reviewed -Hematology on board -Lovenox 60 bid Code(s): I26.99 - OTHER PULMONARY EMBOLISM WITHOUT ACUTE COR PULMONALE (2) Fever Assessment/Plan: -Resolved -UC negative -BC preliminary Gram + cocci in clusters -CT abd/pelvis-no abscess-no acute process -Seen by ID -IV abx- restart vanco Code(s): R50.9 - FEVER, UNSPECIFIED (3) Pancreatic cancer Assessment/Plan: -Oncology on board -Seen by GI -next Chemo due next week -Sees Oncologist at [facility] Rocio Ricci MD outpatient Code(s): C25.9 - MALIGNANT NEOPLASM OF PANCREAS, UNSPECIFIED (4) Acute alteration in mental status Assessment/Plan: -improved -neurology consult -MRI with and without contrast- no cva or Mets -U/S carotid -safety precautions Code(s): R41.82 - ALTERED MENTAL STATUS, UNSPECIFIED
--- NOTE | 2017-11-12 13:34 | PN ---
Progress Note (short form) - Note Progress Note: PULMONARY Denies shortness of breath, cough or wheezing. Vital Signs Period Temp Pulse Resp BP Sys/Olivares Pulse Ox Last 24 Hr 97.6 F-98.6 F 63-93 18-20 105-129/66-107 96 Gen: NAD at rest Heart: RRR Lung: decreased breath sounds at the bases Abd: soft, nontender Ext: no edema CBC, BMP 11/12/17 06:15 11/12/17 06:15 Active Medications Amino Acids (Prosource No Carb Liquid Pkt) 30 ml PO BID@0800,1730 [facility] Last Admin: 11/12/17 09:29 Dose: 30 ml Aspirin (Asa -) 81 mg PO DAILY [facility] Last Admin: 11/12/17 09:35 Dose: 81 mg Enoxaparin Sodium (Lovenox -) 60 mg SQ BID [facility] Last Admin: 11/12/17 09:36 Dose: 60 mg Potassium Chloride/Sodium Chloride (Ns+20 Meq Kcl -) 20 meq in 1,000 mls @ 100 mls/hr IV ASDIR [facility] Last Admin: 11/12/17 04:00 Dose: 100 mls/hr Vancomycin HCl 1,000 mg/ (Dextrose) 250 mls @ 166.667 mls/hr IVPB BID@0000, 1200 [facility]; Protocol Last Admin: 11/12/17 11:54 Dose: 166.667 mls/hr Insulin Aspart (Novolog Vial Sliding Scale -) 1 vial SQ ACHS [facility]; Protocol Last Admin: 11/12/17 12:29 Dose: Not Given Isosorbide Mononitrate (Imdur -) 30 mg PO DAILY [facility] Last Admin: 11/12/17 09:35 Dose: 30 mg Lactobacillus Acidophilus (Bacid -) 1 tab PO DAILY [facility] Last Admin: 11/12/17 09:35 Dose: 1 tab Magnesium Oxide (Mag-Ox -) 400 mg PO BID [facility] Last Admin: 11/12/17 09:35 Dose: 400 mg Metoprolol Succinate (Toprol Xl -) 50 mg PO DAILY [facility] Last Admin: 11/12/17 09:35 Dose: 50 mg Montelukast Sodium (Singulair -) 10 mg PO HS [facility] Last Admin: 11/11/17 22:22 Dose: 10 mg Ybgav-2-Oexl Ethyl Esters (Lovaza -) 2 gm PO DAILY [facility] Last Admin: 11/12/17 09:35 Dose: 2 gm Pantoprazole Sodium (Protonix -) 40 mg PO DAILY [facility] Last Admin: 11/12/17 09:36 Dose: 40 mg Ranolazine (Ranexa -) 500 mg PO BID [facility] Last Admin: 11/12/17 09:35 Dose: 500 mg Tramadol HCl (Ultram -) 50 mg PO Q8H PRN PRN Reason: PAIN LEVEL 4 - 6 Last Admin: 11/11/17 22:25 Dose: 50 mg A/P RLL PE - ?chronic Metastatic Pancreatic Ca s/p biliary stent Atelectasis HTN h/o Colon Ca - continue LMWH - O2 as needed - continue empiric antibiotics - incentive spirometry
--- NOTE | 2017-11-12 14:05 | CON.PSY ---
Psychiatry Consult Chief Complaint: 87 yr old male with a history of Pancreatic Cancer seen for Psych Consult. spoke with patients . reports no history of depression. he however reacts to pain. Feels better with new pain regimen. - Previous Psychiatric Treatment Outpatient: None Inpatient: None - Previous Substance Abuse Treatment Outpatient: None Inpatient: None - Current Medications Current Medications: Active Medications Amino Acids (Prosource No Carb Liquid Pkt) 30 ml PO BID@0800,1730 [facility] Last Admin: 11/12/17 09:29 Dose: 30 ml Aspirin (Asa -) 81 mg PO DAILY [facility] Last Admin: 11/12/17 09:35 Dose: 81 mg Enoxaparin Sodium (Lovenox -) 60 mg SQ BID [facility] Last Admin: 11/12/17 09:36 Dose: 60 mg Potassium Chloride/Sodium Chloride (Ns+20 Meq Kcl -) 20 meq in 1,000 mls @ 100 mls/hr IV ASDIR [facility] Last Admin: 11/12/17 04:00 Dose: 100 mls/hr Vancomycin HCl 1,000 mg/ (Dextrose) 250 mls @ 166.667 mls/hr IVPB BID@0000, 1200 [facility]; Protocol Last Admin: 11/12/17 11:54 Dose: 166.667 mls/hr Insulin Aspart (Novolog Vial Sliding Scale -) 1 vial SQ ACHS [facility]; Protocol Last Admin: 11/12/17 12:29 Dose: Not Given Isosorbide Mononitrate (Imdur -) 30 mg PO DAILY [facility] Last Admin: 11/12/17 09:35 Dose: 30 mg Lactobacillus Acidophilus (Bacid -) 1 tab PO DAILY [facility] Last Admin: 11/12/17 09:35 Dose: 1 tab Magnesium Oxide (Mag-Ox -) 400 mg PO BID [facility] Last Admin: 11/12/17 09:35 Dose: 400 mg Metoprolol Succinate (Toprol Xl -) 50 mg PO DAILY [facility] Last Admin: 11/12/17 09:35 Dose: 50 mg Montelukast Sodium (Singulair -) 10 mg PO HS [facility] Last Admin: 11/11/17 22:22 Dose: 10 mg Tlaby-6-Cjze Ethyl Esters (Lovaza -) 2 gm PO DAILY [facility] Last Admin: 11/12/17 09:35 Dose: 2 gm Pantoprazole Sodium (Protonix -) 40 mg PO DAILY [facility] Last Admin: 11/12/17 09:36 Dose: 40 mg Ranolazine (Ranexa -) 500 mg PO BID [facility] Last Admin: 11/12/17 09:35 Dose: 500 mg Tramadol HCl (Ultram -) 50 mg PO Q8H PRN PRN Reason: PAIN LEVEL 4 - 6 Last Admin: 11/11/17 22:25 Dose: 50 mg - Allergies Allergies: Allergies Allergy/AdvReac Type Severity Reaction Status Date / Time No Known Allergies Allergy Verified 11/08/17 22:28 - Current Living Status Usual Living Arrangement: With Spouse - Current Mental Status Evaluation Appearance: Well Groomed Attitude: Cooperative - Affect Affect: Constrictive Appropriateness: Appropriate to Content - Mood Mood: Euthymic - Speech/Language Expressive: Coherent - Psychomotor Activity Psychomotor Activity: Normal - Thought Process Thought Process: Intact - Thought Content Hallucinations: Absent Delusions: Absent - Self Perception Self Perception: No Impairment - Cognition Attention: Alert Orientation: Time Memory, Immediate Recall: Intact Memory, Short Term: 2/3 Memory, Remote with Promptin/3 - Concentration Serial Sevens Intact: No Simple Calculations Intact: Yes - Insight Insight: Intact - Impulse Control Impulse Control: Good Control - Suicidal Ideation Suicidal Ideation: No - Homicidal Ideation Homicidal Ideation: No Assessment/Plan 1) No psych meds recemmended at this time.\2) Reeval as needed.
[2017-11-12] MEDS: MONTELUKAST NA 10 MG TABLET PO SCH (22:06)
[2017-11-12] MEDS ORDERED: SODIUM CHLORIDE 1,000 ML with POTASSIUM CHLORIDE 20 MEQ IVPB SCH (22:06)
[2017-11-12] MEDS: traMADol HCL 50 MG TABLET PO PRN (22:16)
[2017-11-13] MEDS: SODIUM CHLORIDE 1,000 ML with POTASSIUM CHLORIDE 20 MEQ IV SCH ×2 (04:13→09:48)
[2017-11-13] MEDS: INSULIN SLIDING SCALE (NOVOLOG) 1 VIAL SQ SCH ×4 (06:33→22:03)
[2017-11-13] MEDS: RANOLAZINE E.R. 500 MG TABLET (FP) PO SCH ×2 (09:48→22:00)
[2017-11-13] MEDS: AMINO ACIDS/PROTEIN HYDROLYS 30 ML LIQUID.PKT PO SCH ×2 (09:48→16:52)
[2017-11-13] MEDS: ASPIRIN 81 MG CHEWABLE TABLETS PO SCH (09:48)
[2017-11-13] MEDS: PANTOPRAZOLE 40 MG TABLET (FP) PO SCH (09:48)
[2017-11-13] MEDS: OMEGA-3 ACID ETHYL ESTERS (FATTY-ACIDS) 1 GM CAPSULE (FP) PO SCH (09:49)
[2017-11-13] MEDS: MAGNESIUM OXIDE 400 MG TABLET (FP) PO SCH ×2 (09:49→22:00)
[2017-11-13] MEDS: LACTOBACILLUS ACIDOPHILUS 1 TABLET PO SCH (09:49)
[2017-11-13] MEDS: ISOSORBIDE MONONITRATE 30 MG TAB.SR.24H (FP) PO SCH (09:49)
[2017-11-13] MEDS: ENOXAPARIN NA (PORCINE) 60 MG/0.6 ML DISP.SYRIN SQ SCH ×2 (09:49→22:01)
--- NOTE | 2017-11-13 10:57 | PN ---
Progress Note (short form) - Note Progress Note: PULMONARY Denies shortness of breath, cough or wheezing. Vital Signs Period Temp Pulse Resp BP Sys/Olivares Pulse Ox Last 24 Hr 97.4 F-97.8 F 78-93 18-20 118-135/65-89 96 Gen: NAD at rest Heart: RRR Lung: decreased breath sounds at the bases Abd: soft, nontender Ext: no edema CBC, BMP 11/12/17 06:15 11/12/17 06:15 Active Medications Amino Acids (Prosource No Carb Liquid Pkt) 30 ml PO BID@0800,1730 [facility] Last Admin: 11/13/17 09:48 Dose: 30 ml Aspirin (Asa -) 81 mg PO DAILY [facility] Last Admin: 11/13/17 09:48 Dose: 81 mg Enoxaparin Sodium (Lovenox -) 60 mg SQ BID [facility] Last Admin: 11/13/17 09:49 Dose: 60 mg Vancomycin HCl 1,000 mg/ (Dextrose) 250 mls @ 166.667 mls/hr IVPB BID@0000, 1200 [facility]; Protocol Last Admin: 11/12/17 23:42 Dose: 166.667 mls/hr Potassium Chloride 20 meq/ (Sodium Chloride) 1,010 mls @ 100 mls/hr IV Q10H [facility] Last Admin: 11/13/17 09:48 Dose: Not Given Insulin Aspart (Novolog Vial Sliding Scale -) 1 vial SQ ACHS [facility]; Protocol Last Admin: 11/13/17 06:33 Dose: Not Given Isosorbide Mononitrate (Imdur -) 30 mg PO DAILY [facility] Last Admin: 11/13/17 09:49 Dose: 30 mg Lactobacillus Acidophilus (Bacid -) 1 tab PO DAILY [facility] Last Admin: 11/13/17 09:49 Dose: 1 tab Magnesium Oxide (Mag-Ox -) 400 mg PO BID [facility] Last Admin: 11/13/17 09:49 Dose: 400 mg Metoprolol Succinate (Toprol Xl -) 50 mg PO DAILY [facility] Last Admin: 11/13/17 09:49 Dose: 50 mg Montelukast Sodium (Singulair -) 10 mg PO HS [facility] Last Admin: 11/12/17 22:06 Dose: 10 mg [id number] Ethyl Esters (Lovaza -) 2 gm PO DAILY [facility] Last Admin: 11/13/17 09:49 Dose: 2 gm Pantoprazole Sodium (Protonix -) 40 mg PO DAILY [facility] Last Admin: 11/13/17 09:48 Dose: 40 mg Ranolazine (Ranexa -) 500 mg PO BID [facility] Last Admin: 11/13/17 09:48 Dose: 500 mg Tramadol HCl (Ultram -) 50 mg PO Q8H PRN PRN Reason: PAIN LEVEL 4 - 6 Last Admin: 11/12/17 22:16 Dose: 50 mg A/P RLL PE - ?chronic Metastatic Pancreatic Ca s/p biliary stent Atelectasis HTN h/o Colon Ca - continue LMWH - O2 as needed - antibiotics per ID - incentive spirometry
[2017-11-13] MEDS: VANCOMYCIN 1,000 MG in DEXTROSE 5%-WATER - 250 ML IVPB SCH (11:33)
--- NOTE | 2017-11-13 11:59 | PN ---
Progress Note, Physician - Current Medication List Current Medications: Active Medications Amino Acids (Prosource No Carb Liquid Pkt) 30 ml PO BID@0800,1730 [facility] Last Admin: 11/13/17 09:48 Dose: 30 ml Aspirin (Asa -) 81 mg PO DAILY [facility] Last Admin: 11/13/17 09:48 Dose: 81 mg Enoxaparin Sodium (Lovenox -) 60 mg SQ BID [facility] Last Admin: 11/13/17 09:49 Dose: 60 mg Vancomycin HCl 1,000 mg/ (Dextrose) 250 mls @ 166.667 mls/hr IVPB BID@0000, 1200 [facility]; Protocol Last Admin: 11/13/17 11:33 Dose: 166.667 mls/hr Potassium Chloride 20 meq/ (Sodium Chloride) 1,010 mls @ 100 mls/hr IV Q10H [facility] Last Admin: 11/13/17 09:48 Dose: Not Given Insulin Aspart (Novolog Vial Sliding Scale -) 1 vial SQ ACHS [facility]; Protocol Last Admin: 11/13/17 11:32 Dose: Not Given Isosorbide Mononitrate (Imdur -) 30 mg PO DAILY [facility] Last Admin: 11/13/17 09:49 Dose: 30 mg Lactobacillus Acidophilus (Bacid -) 1 tab PO DAILY [facility] Last Admin: 11/13/17 09:49 Dose: 1 tab Magnesium Oxide (Mag-Ox -) 400 mg PO BID [facility] Last Admin: 11/13/17 09:49 Dose: 400 mg Metoprolol Succinate (Toprol Xl -) 50 mg PO DAILY [facility] Last Admin: 11/13/17 09:49 Dose: 50 mg Montelukast Sodium (Singulair -) [address] [facility] Last Admin: 11/12/17 22:06 Dose: 10 mg Wkdzn-9-Ueqt Ethyl Esters (Lovaza -) 2 gm PO DAILY [facility] Last Admin: 11/13/17 09:49 Dose: 2 gm Pantoprazole Sodium (Protonix -) 40 mg PO DAILY [facility] Last Admin: 11/13/17 09:48 Dose: 40 mg Ranolazine (Ranexa -) 500 mg PO BID [facility] Last Admin: 11/13/17 09:48 Dose: 500 mg Tramadol HCl (Ultram -) 50 mg PO Q8H PRN PRN Reason: PAIN LEVEL 4 - 6 Last Admin: 11/12/17 22:16 Dose: 50 mg - Objective Vital Signs: Vital Signs Temperature 97.8 F 11/13/17 08:31 Pulse Rate 93 H 11/13/17 08:31 Respiratory Rate 18 11/13/17 08:31 Blood Pressure 126/89 11/13/17 08:31 O2 Sat by Pulse Oximetry (%) 96 11/12/17 22:00 Cardiovascular: Yes: S1, S2 Respiratory: Yes: Regular, CTA Bilaterally Gastrointestinal: Yes: Normal Bowel Sounds, Soft Neurological: Yes: Alert, Oriented Labs: CBC, BMP 11/12/17 06:15 11/12/17 06:15 INR, PTT INR 1.65 (0.82-1.09) H D 11/08/17 22:45 Problem List - Problems (1) Fever Code(s): R50.9 - FEVER, UNSPECIFIED (2) Pancreatic cancer Code(s): C25.9 - MALIGNANT NEOPLASM OF PANCREAS, UNSPECIFIED (3) DVT (deep venous thrombosis) Code(s): I82.409 - ACUTE EMBOLISM AND THOMBOS UNSP DEEP VN UNSP LOWER EXTREMITY (4) HTN (hypertension) Code(s): I10 - ESSENTIAL (PRIMARY) HYPERTENSION Assessment/Plan - Problems (1) Pulmonary embolism Assessment/Plan: -CTA reviewed -Hematology on board -Lovenox 60 bid Code(s): I26.99 - OTHER PULMONARY EMBOLISM WITHOUT ACUTE COR PULMONALE (2) Fever Assessment/Plan: -Resolved -UC negative -BC preliminary Gram + cocci in clusters -CT abd/pelvis-no abscess-no acute process -Seen by ID -IV abx- restart vanco Code(s): R50.9 - FEVER, UNSPECIFIED (3) Pancreatic cancer Assessment/Plan: -Oncology on board -Seen by GI -next Chemo due next week -Sees Oncologist at [facility] Rocio Ricci MD outpatient Code(s): C25.9 - MALIGNANT NEOPLASM OF PANCREAS, UNSPECIFIED (4) Acute alteration in mental status Assessment/Plan: -improved -neurology consult -MRI with and without contrast- no cva or Mets -U/S carotid -safety precautions Code(s): R41.82 - ALTERED MENTAL STATUS, UNSPECIFIED
--- NOTE | 2017-11-13 12:33 | PN ---
Progress Note (short form) - Note Progress Note: Patient seen and examined doing well says misses playing golf Vital Signs Period Temp Pulse Resp BP Sys/Olivares Pulse Ox Last 24 Hr 97.4 F-97.8 F 78-93 18-20 118-135/65-89 96-97 HEENT: RADHA, EOM Intact Oropharynx: No thrush, No mucositis Ext:No significant edema Skin: No rashes, Integument intact CBC, BMP 11/12/17 06:15 11/12/17 06:15 Active Medications Generic Name Dose Route Start Last Admin Trade Name Freq PRN Reason Stop Dose Admin Amino Acids 30 ml 11/10/17 17:30 11/13/17 09:48 Prosource No Carb Liquid Pkt PO 30 ml BID@0800,1730 [facility] Administration Aspirin 81 mg 11/09/17 10:00 11/13/17 09:48 Asa - PO 81 mg DAILY [facility] Administration Enoxaparin Sodium 60 mg 11/09/17 10:00 11/13/17 09:49 Lovenox - SQ 60 mg BID [facility] Administration Vancomycin HCl 1,000 mg/ 250 mls @ 166.667 mls/hr 11/12/17 00:00 11/13/17 11: 33 Dextrose IVPB 166.667 mls/hr BID@0000,1200 [facility] Administration Protocol Potassium Chloride 20 meq/ 1,010 mls @ 100 mls/hr 11/13/17 08:06 11/13/17 09: 48 Sodium Chloride IV Not Given Q10H [facility] Insulin Aspart 1 vial 11/09/17 11:00 11/13/17 11:32 Novolog Vial Sliding Scale - SQ Not Given ACHS [facility] Protocol Isosorbide Mononitrate 30 mg 11/09/17 10:00 11/13/17 09:49 Imdur - PO 30 mg DAILY [facility] Administration Lactobacillus Acidophilus 1 tab 11/09/17 10:00 11/13/17 09:49 Bacid - PO 1 tab DAILY [facility] Administration Magnesium Oxide 400 mg 11/10/17 22:15 11/13/17 09:49 Mag-Ox - PO 400 mg BID [facility] Administration Metoprolol Succinate 50 mg 11/09/17 10:00 11/13/17 09:49 Toprol Xl - PO 50 mg DAILY [facility] Administration Montelukast Sodium 10 mg 11/09/17 22:00 07/21/18 22:06 Singulair - PO 10 mg HS [facility] Administration Hujev-4-Miaz Ethyl Esters 2 gm 11/09/17 10:00 11/13/17 09:49 Lovaza - PO 2 gm DAILY [facility] Administration Pantoprazole Sodium 40 mg 11/09/17 10:00 11/13/17 09:48 Protonix - PO 40 mg DAILY [facility] Administration Ranolazine 500 mg 11/09/17 10:00 11/13/17 09:48 Ranexa - PO 500 mg BID [facility] Administration Tramadol HCl 50 mg 11/11/17 13:58 11/12/17 22:16 Ultram - PO 50 mg Q8H PRN Administration PAIN LEVEL 4 - 6 Impression: Pancreatic ca s/p chemotherapy PE- on lovenox bid, continue. Anemia antibiotics per I.D. no requirements for transfusion currently
[2017-11-13] MEDS: POTASSIUM CHLORIDE 20 MEQ in SODIUM CHLORIDE 1,000 ML IVPB SCH (17:59)
[2017-11-13] MEDS: MONTELUKAST NA 10 MG TABLET PO SCH (22:00)
[2017-11-14] MEDS: VANCOMYCIN 1,000 MG in DEXTROSE 5%-WATER - 250 ML IVPB SCH ×2 (00:03→14:16)
[2017-11-14] MEDS: INSULIN SLIDING SCALE (NOVOLOG) 1 VIAL SQ SCH ×4 (06:46→22:16)
[2017-11-14] MEDS: POTASSIUM CHLORIDE 20 MEQ in SODIUM CHLORIDE 1,000 ML IVPB SCH ×2 (06:47→16:53)
[2017-11-14] MEDS: AMINO ACIDS/PROTEIN HYDROLYS 30 ML LIQUID.PKT PO SCH ×2 (09:11→17:03)
[2017-11-14] MEDS: RANOLAZINE E.R. 500 MG TABLET (FP) PO SCH ×2 (09:11→22:19)
[2017-11-14] MEDS: MAGNESIUM OXIDE 400 MG TABLET (FP) PO SCH ×2 (09:11→22:19)
[2017-11-14] MEDS: LACTOBACILLUS ACIDOPHILUS 1 TABLET PO SCH (09:12)
[2017-11-14] MEDS: ENOXAPARIN NA (PORCINE) 60 MG/0.6 ML DISP.SYRIN SQ SCH ×2 (09:12→22:19)
[2017-11-14] MEDS: ASPIRIN 81 MG CHEWABLE TABLETS PO SCH (09:12)
[2017-11-14] MEDS: OMEGA-3 ACID ETHYL ESTERS (FATTY-ACIDS) 1 GM CAPSULE (FP) PO SCH (09:12)
[2017-11-14] MEDS: PANTOPRAZOLE 40 MG TABLET (FP) PO SCH (09:12)
[2017-11-14] MEDS: ISOSORBIDE MONONITRATE 30 MG TAB.SR.24H (FP) PO SCH (09:12)
--- NOTE | 2017-11-14 09:37 | PN ---
Progress Note (short form) - Note Progress Note: Neurology HISTORY OF PRESENT ILLNESS: 87 year old male with a significant past medical history of pancreatic CA ( diagnosed recently) on chemo, last dose 2 weeks ago presented to the ED with fever x 2 days with associated malaise. Denied any other symptoms. Denied SOB, cough, chest pain, abdominal pain, N/V/D, dysuria, frequency. When seen last Tuesday, was awake and alert but was visibly depressed He had indicated based on infectious disease note that "he wanted to today ". He was able to tell me the name of the president but was not fully answering other questions such as where he is, though he indicated being aware that he is in the hospital. Today, more interactive and knows location as well as date and name of president. Does not appear depressed during my evaluation. Psych note reviewed, did not recommend medication. CT head compelted and reviewed, no acute changes. (Interp says dense MCA sign, body of report indicates no dense MCA sign , no acute changes noted). Neurologically appears to have improved mental status and mood. Remains on Vancomycin. MRI brain reviewed and without acute changes. Active Medications Amino Acids (Prosource No Carb Liquid Pkt) 30 ml PO BID@0800,1730 [facility] Last Admin: 11/14/17 09:11 Dose: 30 ml Aspirin (Asa -) 81 mg PO DAILY [facility] Last Admin: 11/14/17 09:12 Dose: 81 mg Enoxaparin Sodium (Lovenox -) 60 mg SQ BID [facility] Last Admin: 11/14/17 09:12 Dose: 60 mg Vancomycin HCl 1,000 mg/ (Dextrose) 250 mls @ 166.667 mls/hr IVPB BID@0000, 1200 [facility]; Protocol Last Admin: 11/14/17 00:03 Dose: 166.667 mls/hr Potassium Chloride 20 meq/ (Sodium Chloride) 1,010 mls @ 100 mls/hr IVPB Q10H [facility] Last Admin: 11/14/17 06:47 Dose: 100 mls/hr Insulin Aspart (Novolog Vial Sliding Scale -) 1 vial SQ ACHS [facility]; Protocol Last Admin: 11/14/17 06:46 Dose: Not Given Isosorbide Mononitrate (Imdur -) 30 mg PO DAILY [facility] Last Admin: 11/14/17 09:12 Dose: 30 mg Lactobacillus Acidophilus (Bacid -) 1 tab PO DAILY [facility] Last Admin: 11/14/17 09:12 Dose: 1 tab Magnesium Oxide (Mag-Ox -) 400 mg PO BID [facility] Last Admin: 11/14/17 09:11 Dose: 400 mg Metoprolol Succinate (Toprol Xl -) 50 mg PO DAILY [facility] Last Admin: 11/14/17 09:11 Dose: 50 mg Montelukast Sodium (Singulair -) 10 mg PO HS [facility] Last Admin: 11/13/17 22:00 Dose: 10 mg Umbdm-5-Fiqc Ethyl Esters (Lovaza -) 2 gm PO DAILY [facility] Last Admin: 11/14/17 09:12 Dose: 2 gm Pantoprazole Sodium (Protonix -) 40 mg PO DAILY [facility] Last Admin: 11/14/17 09:12 Dose: 40 mg Ranolazine (Ranexa -) 500 mg PO BID [facility] Last Admin: 11/14/17 09:11 Dose: 500 mg Tramadol HCl (Ultram -) 50 mg PO Q8H PRN PRN Reason: PAIN LEVEL 4 - 6 Last Admin: 11/12/17 22:16 Dose: 50 mg Vital Signs Period Temp Pulse Resp BP Sys/Olivares Pulse Ox Last 24 Hr 97.8 F-98.4 F 71-82 18-19 132-136/71-78 96 GENERAL: Awake, alert, and fully oriented, in no acute distress. HEAD: Normal with no signs of trauma. EYES: Pupils equal, round and reactive to light, extraocular movements intact, sclera anicteric, conjunctiva clear. No lid lag. EARS, NOSE, THROAT: Ears normal, nares patent, oropharynx clear without exudates. Moist mucous membranes. NECK: Normal range of motion, supple without lymphadenopathy, JVD, or masses. LUNGS: Breath sounds equal, clear to auscultation bilaterally. No wheezes. No accessory muscle use. crackles bilat bases HEART: Regular rate and rhythm, normal S1 and S2 without murmur, rub or gallop. ABDOMEN: Soft, nontender, not distended, normoactive bowel sounds, no guarding, no rebound, no masses. No hepatomegaly or splenomegaly. MUSCULOSKELETAL: Normal range of motion at all joints. No bony deformities or tenderness. No CVA tenderness. UPPER EXTREMITIES: 2+ pulses, warm, well-perfused. No cyanosis. No clubbing. No peripheral edema. LOWER EXTREMITIES: 2+ pulses, warm, well-perfused. No calf tenderness. No peripheral edema. NEUROLOGICAL: Cranial nerves II-XII intact. Normal speech. Moves all extremities grossly, sensory intact, PSYCHIATRIC: Cooperative. Good eye contact. Appropriate mood and affect. SKIN: Warm, dry, normal turgor, no rashes or lesions noted, normal capillary refill. CBCD WBC 16.6 K/mm3 (4.0-10.0) H 11/11/17 07:40 RBC 2.89 M/mm3 (4.00-5.60) L 11/11/17 07:40 Hgb 8.1 GM/dL (11.7-16.9) L 11/11/17 07:40 Hct 24.3 % (35.4-49) L 11/11/17 07:40 MCV 84.2 fl (80-96) 11/11/17 07:40 MCHC 33.3 g/dl (32.0-35.9) 11/11/17 07:40 RDW 17.1 % (11.9-15.9) H 11/11/17 07:40 Plt Count 188 K/MM3 (134-434) 11/11/17 07:40 MPV 10.0 fl (7.5-11.1) 11/11/17 07:40 CMP Sodium 139 mmol/L (136-145) 11/11/17 07:40 Potassium 3.6 mmol/L (3.5-5.1) 11/11/17 07:40 Chloride 107 mmol/L (98-107) 11/11/17 07:40 Carbon Dioxide 22 mmol/L (21-32) 11/11/17 07:40 Anion Gap 10 (8-16) 11/11/17 07:40 BUN 15 mg/dL (7-18) 11/11/17 07:40 Creatinine 0.9 mg/dL (0.7-1.3) 11/11/17 07:40 Creat Clearance w eGFR > 60 (>60) 11/11/17 07:40 Calcium 8.1 mg/dL (8.5-10.1) L 11/11/17 07:40 Total Bilirubin 0.8 mg/dL (0.2-1.0) 11/11/17 07:40 AST 39 U/L (15-37) H 11/11/17 07:40 ALT 34 U/L (12-78) 11/11/17 07:40 Alkaline Phosphatase 87 U/L (45-117) 11/11/17 07:40 Total Protein 4.9 g/dl (6.4-8.2) L 11/11/17 07:40 Albumin 1.8 g/dl (3.4-5.0) L 11/11/17 07:40 Ct head reviewed MRI brain reviewed ASSESSMENT/PLAN: 87 year old male with a significant past medical history of pancreatic CA ( diagnosed recently) on chemo, last dose 2 weeks ago presented to the ED with fever x 2 days with associated malaise. Denied any other symptoms. Denied SOB, cough, chest pain, abdominal pain, N/V/D, dysuria, frequency. When seen last Tuesday, was awake and alert but was visibly depressed He had indicated based on infectious disease note that "he wanted to today ". He was able to tell me the name of the president but was not fully answering other questions such as where he is, though he indicated being aware that he is in the hospital. Today, more interactive and knows location as well as date and name of president. Does not appear depressed during my evaluation. Psych note reviewed, did not recommend medication. CT head compelted and reviewed, no acute changes. (Matti says dense MCA sign, body of report indicates no dense MCA sign , no acute changes noted). MRI brain without acute changes Neurologically appears to have improved mental status and mood. Remains on Vancomycin. ID follow up hydration and needed Consider antidepressant if needed in future Psych consult reviewed Continue reorientation Onc follow up regarding pancreatic cancer Neurologically improved
--- NOTE | 2017-11-14 11:30 | PN ---
Progress Note, Physician Chief Complaint: patient on iv abx for positive blood culture labs ordered right now vanco level ordered - Current Medication List Current Medications: Active Medications Amino Acids (Prosource No Carb Liquid Pkt) 30 ml PO BID@0800,1730 [facility] Last Admin: 11/14/17 09:11 Dose: 30 ml Aspirin (Asa -) 81 mg PO DAILY [facility] Last Admin: 11/14/17 09:12 Dose: 81 mg Enoxaparin Sodium (Lovenox -) 60 mg SQ BID [facility] Last Admin: 11/14/17 09:12 Dose: 60 mg Vancomycin HCl 1,000 mg/ (Dextrose) 250 mls @ 166.667 mls/hr IVPB BID@0000, 1200 [facility]; Protocol Last Admin: 11/14/17 00:03 Dose: 166.667 mls/hr Potassium Chloride 20 meq/ (Sodium Chloride) 1,010 mls @ 100 mls/hr IVPB Q10H [facility] Last Admin: 11/14/17 06:47 Dose: 100 mls/hr Insulin Aspart (Novolog Vial Sliding Scale -) 1 vial SQ ACHS [facility]; Protocol Last Admin: 11/14/17 06:46 Dose: Not Given Isosorbide Mononitrate (Imdur -) 30 mg PO DAILY [facility] Last Admin: 11/14/17 09:12 Dose: 30 mg Lactobacillus Acidophilus (Bacid -) 1 tab PO DAILY [facility] Last Admin: 11/14/17 09:12 Dose: 1 tab Magnesium Oxide (Mag-Ox -) 400 mg PO BID [facility] Last Admin: 11/14/17 09:11 Dose: 400 mg Metoprolol Succinate (Toprol Xl -) 50 mg PO DAILY [facility] Last Admin: 11/14/17 09:11 Dose: 50 mg Montelukast Sodium (Singulair -) 10 mg PO HS [facility] Last Admin: 11/13/17 22:00 Dose: 10 mg Citsd-6-Qrcl Ethyl Esters (Lovaza -) 2 gm PO DAILY [facility] Last Admin: 11/14/17 09:12 Dose: 2 gm Pantoprazole Sodium (Protonix -) 40 mg PO DAILY [facility] Last Admin: 11/14/17 09:12 Dose: 40 mg Ranolazine (Ranexa -) 500 mg PO BID [facility] Last Admin: 11/14/17 09:11 Dose: 500 mg Tramadol HCl (Ultram -) 50 mg PO Q8H PRN PRN Reason: PAIN LEVEL 4 - 6 Last Admin: 11/12/17 22:16 Dose: 50 mg - Objective Vital Signs: Vital Signs Temperature 98.4 F 11/14/17 02:00 Pulse Rate 82 11/14/17 02:00 Respiratory Rate 18 11/14/17 02:00 Blood Pressure 136/78 11/14/17 02:00 O2 Sat by Pulse Oximetry (%) 96 11/13/17 21:00 Constitutional: Yes: Calm Cardiovascular: Yes: Regular Rate and Rhythm, S1, S2 Respiratory: Yes: CTA Bilaterally Gastrointestinal: Yes: Normal Bowel Sounds, Soft Edema: Yes Labs: CBC, BMP 11/12/17 06:15 11/12/17 06:15 INR, PTT INR 1.65 (0.82-1.09) H D 11/08/17 22:45 Problem List - Problems (1) Positive blood culture Assessment/Plan: Microbiology 11/08/17 22:45 Blood - Peripheral Venous Blood Culture - Final Streptococcus Intermedius iv vancomycin Code(s): R78.81 - BACTEREMIA (2) Pulmonary embolism Assessment/Plan: lovenox BID CTA noted hypercoagulable state, Code(s): I26.99 - OTHER PULMONARY EMBOLISM WITHOUT ACUTE COR PULMONALE (3) Acute alteration in mental status Assessment/Plan: MRI and CT done neurology on board Code(s): R41.82 - ALTERED MENTAL STATUS, UNSPECIFIED (4) Pancreatic cancer Assessment/Plan: s/p chemotherapy Code(s): C25.9 - MALIGNANT NEOPLASM OF PANCREAS, UNSPECIFIED
--- NOTE | 2017-11-14 13:13 | PN ---
Progress Note, Physician History of Present Illness: pulmonary alert,oob-chair,-sob,-cp. O2 sat 97% on ra - Current Medication List Current Medications: Active Medications Amino Acids (Prosource No Carb Liquid Pkt) 30 ml PO BID@0800,1730 [facility] Last Admin: 11/14/17 09:11 Dose: 30 ml Aspirin (Asa -) 81 mg PO DAILY [facility] Last Admin: 11/14/17 09:12 Dose: 81 mg Enoxaparin Sodium (Lovenox -) 60 mg SQ BID [facility] Last Admin: 11/14/17 09:12 Dose: 60 mg Vancomycin HCl 1,000 mg/ (Dextrose) 250 mls @ 166.667 mls/hr IVPB BID@0000, 1200 [facility]; Protocol Last Admin: 11/14/17 00:03 Dose: 166.667 mls/hr Potassium Chloride 20 meq/ (Sodium Chloride) 1,010 mls @ 100 mls/hr IVPB Q10H [facility] Last Admin: 11/14/17 06:47 Dose: 100 mls/hr Insulin Aspart (Novolog Vial Sliding Scale -) 1 vial SQ ACHS [facility]; Protocol Last Admin: 11/14/17 11:44 Dose: Not Given Isosorbide Mononitrate (Imdur -) 30 mg PO DAILY [facility] Last Admin: 11/14/17 09:12 Dose: 30 mg Lactobacillus Acidophilus (Bacid -) 1 tab PO DAILY [facility] Last Admin: 11/14/17 09:12 Dose: 1 tab Magnesium Oxide (Mag-Ox -) 400 mg PO BID [facility] Last Admin: 11/14/17 09:11 Dose: 400 mg Metoprolol Succinate (Toprol Xl -) 50 mg PO DAILY [facility] Last Admin: 11/14/17 09:11 Dose: 50 mg Montelukast Sodium (Singulair -) 10 mg PO HS [facility] Last Admin: 11/13/17 22:00 Dose: 10 mg Xplky-6-Okae Ethyl Esters (Lovaza -) 2 gm PO DAILY [facility] Last Admin: 11/14/17 09:12 Dose: 2 gm Pantoprazole Sodium (Protonix -) 40 mg PO DAILY [facility] Last Admin: 11/14/17 09:12 Dose: 40 mg Ranolazine (Ranexa -) 500 mg PO BID [facility] Last Admin: 11/14/17 09:11 Dose: 500 mg Tramadol HCl (Ultram -) 50 mg PO Q8H PRN PRN Reason: PAIN LEVEL 4 - 6 Last Admin: 11/12/17 22:16 Dose: 50 mg - Objective Vital Signs: Vital Signs Temperature 98.2 F 11/14/17 09:00 Pulse Rate 84 11/14/17 09:00 Respiratory Rate 18 11/14/17 09:00 Blood Pressure 151/74 11/14/17 09:00 O2 Sat by Pulse Oximetry (%) 96 11/13/17 21:00 Constitutional: Yes: Well Nourished, Calm Eyes: Yes: WNL HENT: Yes: WNL Neck: Yes: WNL Cardiovascular: Yes: Regular Rate and Rhythm, S1, S2 Respiratory: Yes: Diminished Gastrointestinal: Yes: Normal Bowel Sounds, Soft Extremities: Yes: WNL Edema: Yes Labs: CBC, BMP Problem List - Problems (1) Acute hypoxemic respiratory failure Code(s): J96.01 - ACUTE RESPIRATORY FAILURE WITH HYPOXIA (2) Fever Code(s): R50.9 - FEVER, UNSPECIFIED (3) HTN (hypertension) Code(s): I10 - ESSENTIAL (PRIMARY) HYPERTENSION (4) History of colon cancer Code(s): Z85.038 - PERSONAL HISTORY OF MALIGNANT NEOPLASM OF LARGE INTESTINE (5) History of pulmonary embolism Code(s): Z86.711 - PERSONAL HISTORY OF PULMONARY EMBOLISM (6) Pancreatic cancer Code(s): C25.9 - MALIGNANT NEOPLASM OF PANCREAS, UNSPECIFIED Assessment/Plan A/P RLL PE - ?chronic Metastatic Pancreatic Ca s/p biliary stent Atelectasis HTN h/o Colon Ca - continue LMWH - O2 as needed - antibiotics per ID - incentive spirometry DR DEMPSEY
[2017-11-14 16:00] LABS: ALBUMIN 1.9 g/dl (3.4-5.0); ALK PHOS 94 U/L (45-117); ANION GAP 9 (8-16); BILIRUBIN,TOTAL 0.5 mg/dL (0.2-1.0); BLOOD UREA NITROGEN 13 mg/dL (7-18); CHLORIDE 108 mmol/L (98-107); CO2 25 mmol/L (21-32); CREATININE 0.9 mg/dL (0.7-1.3); GLUCOSE,RANDOM 114 mg/dL (74-106); POTASSIUM 4.1 mmol/L (3.5-5.1); SGOT/AST 20 U/L (15-37); SGPT/ALT 20 U/L (12-78); SODIUM 142 mmol/L (136-145); TOT PROT 5.2 g/dl (6.4-8.2)
--- NOTE | 2017-11-14 17:30 | PN ---
Progress Note, Physician History of Present Illness: OOB in chair C/O occasional R pleuritic chest pain No c/o fever/ chills Afebrile WBC slightly elevated ESR 110 CRP 14.7 - Current Medication List Current Medications: Active Medications Amino Acids (Prosource No Carb Liquid Pkt) 30 ml PO BID@0800,1730 [facility] Last Admin: 11/14/17 17:03 Dose: 30 ml Aspirin (Asa -) 81 mg PO DAILY [facility] Last Admin: 11/14/17 09:12 Dose: 81 mg Enoxaparin Sodium (Lovenox -) 60 mg SQ BID [facility] Last Admin: 11/14/17 09:12 Dose: 60 mg Potassium Chloride 20 meq/ (Sodium Chloride) 1,010 mls @ 100 mls/hr IVPB Q10H [facility] Last Admin: 11/14/17 16:53 Dose: 100 mls/hr Insulin Aspart (Novolog Vial Sliding Scale -) 1 vial SQ ACHS [facility]; Protocol Last Admin: 11/14/17 16:58 Dose: Not Given Isosorbide Mononitrate (Imdur -) 30 mg PO DAILY [facility] Last Admin: 11/14/17 09:12 Dose: 30 mg Lactobacillus Acidophilus (Bacid -) 1 tab PO DAILY [facility] Last Admin: 11/14/17 09:12 Dose: 1 tab Magnesium Oxide (Mag-Ox -) 400 mg PO BID [facility] Last Admin: 11/14/17 09:11 Dose: 400 mg Metoprolol Succinate (Toprol Xl -) 50 mg PO DAILY [facility] Last Admin: 11/14/17 09:11 Dose: 50 mg Montelukast Sodium (Singulair -) 10 mg PO HS [facility] Last Admin: 11/13/17 22:00 Dose: 10 mg Jvehf-1-Pqpt Ethyl Esters (Lovaza -) 2 gm PO DAILY [facility] Last Admin: 11/14/17 09:12 Dose: 2 gm Pantoprazole Sodium (Protonix -) 40 mg PO DAILY [facility] Last Admin: 11/14/17 09:12 Dose: 40 mg Ranolazine (Ranexa -) 500 mg PO BID [facility] Last Admin: 11/14/17 09:11 Dose: 500 mg - Objective Vital Signs: Vital Signs Temperature 97.9 F 11/14/17 14:50 Pulse Rate 72 11/14/17 14:50 Respiratory Rate 18 11/14/17 14:50 Blood Pressure 127/80 11/14/17 14:50 O2 Sat by Pulse Oximetry (%) 96 11/14/17 10:00 Constitutional: Yes: No Distress Eyes: Yes: Conjunctiva Clear Cardiovascular: Yes: Regular Rate and Rhythm, S1, S2 Respiratory: Yes: CTA Bilaterally Gastrointestinal: Yes: Normal Bowel Sounds, Soft. No: Tenderness Edema: Yes Integumentary: Yes: Other (port site no erythema) Labs: CBC, BMP 11/12/17 06:15 11/14/17 14:45 INR, PTT INR 1.65 (0.82-1.09) H D 11/08/17 22:45 Assessment/Plan Streptococcal bacteremia S/P sepsis syndrome Pancreatic ca Substitute ceftriaxone 2gm IVPB q24h
[2017-11-14] MEDS ORDERED: DEXTROSE 5%-WATER 100 ML IVPB ONE (17:48)
[2017-11-14] MEDS: CEFTRIAXONE 2 GM in DEXTROSE 5%-WATER 100 ML IVPB SCH (18:00)
--- NOTE | 2017-11-14 22:00 | PN ---
Progress Note (short form) - Note Progress Note: Patient seen and examined Denies any complaints AFVSS Cor: RSR, No murmurs, No gallops Lungs: Clear to P&A Abd: Soft, Normal bowel sounds, No organomegaly Ext:No significant edema Labs/Meds reviewed A/P Streptococcal bacteremia S/P sepsis syndrome Pancreatic ca RLL PE anemia
[2017-11-14] MEDS: MONTELUKAST NA 10 MG TABLET PO SCH (22:19)
[2017-11-14] MEDS ORDERED: ACETAMINOPHEN 325 MG TABLET (FP) PO ONE (22:36)
[2017-11-15] MEDS: POTASSIUM CHLORIDE 20 MEQ in SODIUM CHLORIDE 1,000 ML IVPB SCH ×4 (05:41→22:10)
[2017-11-15] MEDS: INSULIN SLIDING SCALE (NOVOLOG) 1 VIAL SQ SCH ×4 (06:40→21:35)
[2017-11-15 07:16] LABS: EOS % 2.3 % (0-4.5); HEMATOCRIT 25.4 % (35.4-49); HEMOGLOBIN 8.5 GM/dL (11.7-16.9); LYMPH % 11.9 % (8-40); MCH 28.7 pg (25.7-33.7); MCHC 33.4 g/dl (32.0-35.9); MEAN CELL VOLUME 85.8 fl (80-96); MEAN PLT VOLUME 9.7 fl (7.5-11.1); MONO % 10.4 % (3.8-10.2); NEUT % 74.4 % (42.8-82.8); PLATELET COUNT 263 K/MM3 (134-434); RBC 2.96 M/mm3 (4.00-5.60); RDW 17.4 % (11.9-15.9); WHITE BLOOD COUNT 8.7 K/mm3 (4.0-10.0)
[2017-11-15 07:36] LABS: ALBUMIN 1.9 g/dl (3.4-5.0); ANION GAP 8 (8-16); BILIRUBIN,TOTAL 0.5 mg/dL (0.2-1.0); BLOOD UREA NITROGEN 11 mg/dL (7-18); CALCIUM 8.3 mg/dL (8.5-10.1); CHLORIDE 108 mmol/L (98-107); CO2 26 mmol/L (21-32); CREATININE 0.8 mg/dL (0.7-1.3); GLUCOSE,RANDOM 100 mg/dL (74-106); SGOT/AST 18 U/L (15-37); SGPT/ALT 18 U/L (12-78); SODIUM 142 mmol/L (136-145); TOT PROT 5.4 g/dl (6.4-8.2)
[2017-11-15 07:37] LABS: ALK PHOS 86 U/L (45-117)
--- NOTE | 2017-11-15 09:11 | PN ---
Progress Note (short form) - Note Progress Note: Neurology HISTORY OF PRESENT ILLNESS: 87 year old male with a significant past medical history of pancreatic CA ( diagnosed recently) on chemo, last dose 2 weeks ago presented to the ED with fever x 2 days with associated malaise. Denied any other symptoms. Denied SOB, cough, chest pain, abdominal pain, N/V/D, dysuria, frequency. When seen last Tuesday, was awake and alert but was visibly depressed He had indicated based on infectious disease note that "he wanted to today ". He was able to tell me the name of the president but was not fully answering other questions such as where he is, though he indicated being aware that he is in the hospital. Today, more interactive and knows location as well as date and name of president. Does not appear depressed during my evaluation. Psych note reviewed, did not recommend medication. CT head compelted and reviewed, no acute changes. MRI brain reviewed and without acute changes. Neurologically appears to have improved mental status and mood. Currently on Ceftriaxone. Is at baseline mental status, wanted to discuss baseball this morning. Inquiring about discharge. Active Medications Acetaminophen (Tylenol -) 650 mg PO Q6H PRN PRN Reason: FEVER Amino Acids (Prosource No Carb Liquid Pkt) 30 ml PO BID@0800,1730 [facility] Last Admin: 11/14/17 17:03 Dose: 30 ml Aspirin (Asa -) 81 mg PO DAILY [facility] Last Admin: 11/14/17 09:12 Dose: 81 mg Enoxaparin Sodium (Lovenox -) 60 mg SQ BID [facility] Last Admin: 11/14/17 22:19 Dose: 60 mg Potassium Chloride 20 meq/ (Sodium Chloride) 1,010 mls @ 100 mls/hr IVPB Q10H [facility] Last Admin: 11/15/17 05:41 Dose: 100 mls/hr Ceftriaxone Sodium 2 gm/ (Dextrose) 100 mls @ 200 mls/hr IVPB DAILY [facility]; Protocol Last Admin: 11/14/17 18:00 Dose: 200 mls/hr Insulin Aspart (Novolog Vial Sliding Scale -) 1 vial SQ ACHS [facility]; Protocol Last Admin: 11/15/17 06:40 Dose: Not Given Isosorbide Mononitrate (Imdur -) 30 mg PO DAILY [facility] Last Admin: 07/23/18 09:12 Dose: 30 mg Lactobacillus Acidophilus (Bacid -) 1 tab PO DAILY [facility] Last Admin: 11/14/17 09:12 Dose: 1 tab Magnesium Oxide (Mag-Ox -) 400 mg PO BID [facility] Last Admin: 11/14/17 22:19 Dose: 400 mg Metoprolol Succinate (Toprol Xl -) 50 mg PO DAILY [facility] Last Admin: 11/14/17 09:11 Dose: 50 mg Montelukast Sodium (Singulair -) 10 mg PO HS [facility] Last Admin: 11/14/17 22:19 Dose: 10 mg [id number] Ethyl Esters (Lovaza -) 2 gm PO DAILY [facility] Last Admin: 11/14/17 09:12 Dose: 2 gm Pantoprazole Sodium (Protonix -) 40 mg PO DAILY [facility] Last Admin: 11/14/17 09:12 Dose: 40 mg Ranolazine (Ranexa -) 500 mg PO BID [facility] Last Admin: 11/14/17 22:19 Dose: 500 mg Vital Signs Temperature 97.7 F 11/15/17 06:05 Pulse Rate 82 11/15/17 06:05 Respiratory Rate 17 11/15/17 06:05 Blood Pressure 140/83 11/15/17 06:05 O2 Sat by Pulse Oximetry (%) 96 11/14/17 21:00 GENERAL: Awake, alert, and fully oriented, in no acute distress. HEAD: Normal with no signs of trauma. EYES: Pupils equal, round and reactive to light, extraocular movements intact, sclera anicteric, conjunctiva clear. No lid lag. EARS, NOSE, THROAT: Ears normal, nares patent, oropharynx clear without exudates. Moist mucous membranes. NECK: Normal range of motion, supple without lymphadenopathy, JVD, or masses. LUNGS: Breath sounds equal, clear to auscultation bilaterally. No wheezes. No accessory muscle use. crackles bilat bases HEART: Regular rate and rhythm, normal S1 and S2 without murmur, rub or gallop. ABDOMEN: Soft, nontender, not distended, normoactive bowel sounds, no guarding, no rebound, no masses. No hepatomegaly or splenomegaly. MUSCULOSKELETAL: Normal range of motion at all joints. No bony deformities or tenderness. No CVA tenderness. UPPER EXTREMITIES: 2+ pulses, warm, well-perfused. No cyanosis. No clubbing. No peripheral edema. LOWER EXTREMITIES: 2+ pulses, warm, well-perfused. No calf tenderness. No peripheral edema. NEUROLOGICAL: Cranial nerves II-XII intact. Normal speech. Moves all extremities grossly, sensory intact, PSYCHIATRIC: Cooperative. Good eye contact. Appropriate mood and affect. SKIN: Warm, dry, normal turgor, no rashes or lesions noted, normal capillary refill. CBCD WBC 8.7 K/mm3 (4.0-10.0) 11/15/17 06:30 RBC 2.96 M/mm3 (4.00-5.60) L 11/15/17 06:30 Hgb 8.5 GM/dL (11.7-16.9) L 11/15/17 06:30 Hct 25.4 % (35.4-49) L 11/15/17 06:30 MCV 85.8 fl (80-96) 11/15/17 06:30 MCHC 33.4 g/dl (32.0-35.9) 11/15/17 06:30 RDW 17.4 % (11.9-15.9) H 11/15/17 06:30 Plt Count 263 K/MM3 (134-434) D 11/15/17 06:30 MPV 9.7 fl (7.5-11.1) 11/15/17 06:30 CMP Sodium 142 mmol/L (136-145) 11/15/17 06:30 Potassium 4.0 mmol/L (3.5-5.1) 11/15/17 06:30 Chloride 108 mmol/L (98-107) H 11/15/17 06:30 Carbon Dioxide 26 mmol/L (21-32) 11/15/17 06:30 Anion Gap 8 (8-16) 11/15/17 06:30 BUN 11 mg/dL (7-18) 11/15/17 06:30 Creatinine 0.8 mg/dL (0.7-1.3) 11/15/17 06:30 Creat Clearance w eGFR > 60 (>60) 11/15/17 06:30 Calcium 8.3 mg/dL (8.5-10.1) L 11/15/17 06:30 Total Bilirubin 0.5 mg/dL (0.2-1.0) 11/15/17 06:30 AST 18 U/L (15-37) 11/15/17 06:30 ALT 18 U/L (12-78) 11/15/17 06:30 Alkaline Phosphatase 86 U/L (45-117) 11/15/17 06:30 Total Protein 5.4 g/dl (6.4-8.2) L 11/15/17 06:30 Albumin 1.9 g/dl (3.4-5.0) L 11/15/17 06:30 Ct head reviewed MRI brain reviewed ASSESSMENT/PLAN: 87 year old male with a significant past medical history of pancreatic CA ( diagnosed recently) on chemo, last dose 2 weeks ago presented to the ED with fever x 2 days with associated malaise. Denied any other symptoms. Denied SOB, cough, chest pain, abdominal pain, N/V/D, dysuria, frequency. When seen last Tuesday, was awake and alert but was visibly depressed He had indicated based on infectious disease note that "he wanted to today ". He was able to tell me the name of the president but was not fully answering other questions such as where he is, though he indicated being aware that he is in the hospital. Today, more interactive and knows location as well as date and name of president. Does not appear depressed during my evaluation. Psych note reviewed, did not recommend medication. CT head compelted and reviewed, no acute changes. (Matti says dense MCA sign, body of report indicates no dense MCA sign , no acute changes noted). MRI brain without acute changes Neurologically appears to have improved mental status and mood. Currently on Ceftriaxone ID follow up hydration as needed Consider antidepressant if needed in future but seems to be in good spirits Onc follow up regarding pancreatic cancer Neurologically improved
[2017-11-15 09:14] LABS: ANISOCYTOSIS 1+; PLATELET ESTIMATE ADEQUATE
[2017-11-15] MEDS ORDERED: DEXTROSE 5%-WATER 100 ML IVPB ONE (09:19)
[2017-11-15] MEDS: CEFTRIAXONE 2 GM in DEXTROSE 5%-WATER 100 ML IVPB SCH (09:21)
[2017-11-15] MEDS: AMINO ACIDS/PROTEIN HYDROLYS 30 ML LIQUID.PKT PO SCH ×2 (09:21→17:44)
[2017-11-15] MEDS: RANOLAZINE E.R. 500 MG TABLET (FP) PO SCH ×2 (09:22→21:33)
[2017-11-15] MEDS: PANTOPRAZOLE 40 MG TABLET (FP) PO SCH (09:23)
[2017-11-15] MEDS: MAGNESIUM OXIDE 400 MG TABLET (FP) PO SCH ×2 (09:23→21:33)
[2017-11-15] MEDS: ISOSORBIDE MONONITRATE 30 MG TAB.SR.24H (FP) PO SCH (09:23)
[2017-11-15] MEDS: LACTOBACILLUS ACIDOPHILUS 1 TABLET PO SCH (09:23)
[2017-11-15] MEDS: ASPIRIN 81 MG CHEWABLE TABLETS PO SCH (09:23)
[2017-11-15] MEDS: OMEGA-3 ACID ETHYL ESTERS (FATTY-ACIDS) 1 GM CAPSULE (FP) PO SCH (09:23)
[2017-11-15] MEDS: ENOXAPARIN NA (PORCINE) 60 MG/0.6 ML DISP.SYRIN SQ SCH ×2 (09:24→21:32)
--- NOTE | 2017-11-15 12:18 | PN ---
Progress Note, Physician History of Present Illness: pulmonary alert,oob-chair,-sob - Current Medication List Current Medications: Active Medications Acetaminophen (Tylenol -) 650 mg PO Q6H PRN PRN Reason: FEVER Amino Acids (Prosource No Carb Liquid Pkt) 30 ml PO BID@0800,1730 [facility] Last Admin: 11/15/17 09:21 Dose: 30 ml Aspirin (Asa -) 81 mg PO DAILY [facility] Last Admin: 11/15/17 09:23 Dose: 81 mg Enoxaparin Sodium (Lovenox -) 60 mg SQ BID [facility] Last Admin: 11/15/17 09:24 Dose: 60 mg Potassium Chloride 20 meq/ (Sodium Chloride) 1,010 mls @ 100 mls/hr IVPB Q10H [facility] Last Admin: 11/15/17 09:24 Dose: Not Given Ceftriaxone Sodium 2 gm/ (Dextrose) 100 mls @ 200 mls/hr IVPB DAILY [facility]; Protocol Last Admin: 11/15/17 09:21 Dose: 200 mls/hr Insulin Aspart (Novolog Vial Sliding Scale -) 1 vial SQ ACHS [facility]; Protocol Last Admin: 11/15/17 06:40 Dose: Not Given Isosorbide Mononitrate (Imdur -) 30 mg PO DAILY [facility] Last Admin: 11/15/17 09:23 Dose: 30 mg Lactobacillus Acidophilus (Bacid -) 1 tab PO DAILY [facility] Last Admin: 11/15/17 09:23 Dose: 1 tab Magnesium Oxide (Mag-Ox -) 400 mg PO BID [facility] Last Admin: 11/15/17 09:23 Dose: 400 mg Metoprolol Succinate (Toprol Xl -) 50 mg PO DAILY [facility] Last Admin: 11/15/17 09:23 Dose: 50 mg Montelukast Sodium (Singulair -) 10 mg PO HS [facility] Last Admin: 11/14/17 22:19 Dose: 10 mg [id number] Ethyl Esters (Lovaza -) 2 gm PO DAILY [facility] Last Admin: 11/15/17 09:23 Dose: 2 gm Pantoprazole Sodium (Protonix -) 40 mg PO DAILY [facility] Last Admin: 11/15/17 09:23 Dose: 40 mg Ranolazine (Ranexa -) 500 mg PO BID [facility] Last Admin: 11/15/17 09:22 Dose: 500 mg - Objective Vital Signs: Vital Signs Temperature 97.8 F 11/15/17 10:00 Pulse Rate 82 11/15/17 10:00 Respiratory Rate 17 11/15/17 10:00 Blood Pressure 149/76 11/15/17 10:00 O2 Sat by Pulse Oximetry (%) 97 11/15/17 09:00 Constitutional: Yes: Well Nourished, Calm Eyes: Yes: WNL HENT: Yes: WNL Neck: Yes: WNL Cardiovascular: Yes: Regular Rate and Rhythm, S1, S2 Respiratory: Yes: Diminished Gastrointestinal: Yes: Normal Bowel Sounds, Soft Extremities: Yes: WNL Edema: No Labs: CBC, BMP 11/15/17 06:30 11/15/17 06:30 INR, PTT INR 1.65 (0.82-1.09) H D 11/08/17 22:45 Problem List - Problems (1) Acute hypoxemic respiratory failure Code(s): J96.01 - ACUTE RESPIRATORY FAILURE WITH HYPOXIA (2) Fever Code(s): R50.9 - FEVER, UNSPECIFIED (3) HTN (hypertension) Code(s): I10 - ESSENTIAL (PRIMARY) HYPERTENSION (4) History of colon cancer Code(s): Z85.038 - PERSONAL HISTORY OF MALIGNANT NEOPLASM OF LARGE INTESTINE (5) History of pulmonary embolism Code(s): Z86.711 - PERSONAL HISTORY OF PULMONARY EMBOLISM (6) Pancreatic cancer Code(s): C25.9 - MALIGNANT NEOPLASM OF PANCREAS, UNSPECIFIED Assessment/Plan 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
[2017-11-15] MEDS ORDERED: PICC LINE 8 ML FLUSH PROTOCOL IVPUSH PRN (13:25)
--- NOTE | 2017-11-15 13:32 | DS ---
Physical Examination Vital Signs: Vital Signs Temperature 97.8 F 11/15/17 10:00 Pulse Rate 82 11/15/17 10:00 Respiratory Rate 17 11/15/17 10:00 Blood Pressure 149/76 11/15/17 10:00 O2 Sat by Pulse Oximetry (%) 97 11/15/17 09:00 Constitutional: Yes: Calm Cardiovascular: Yes: Regular Rate and Rhythm, S1, S2, Other (chest port) Respiratory: Yes: CTA Bilaterally Gastrointestinal: Yes: Normal Bowel Sounds, Soft Edema: Yes Neurological: Yes: Alert, Oriented Labs: CBC, BMP 11/15/17 06:30 11/15/17 06:30 Discharge Summary Reason For Visit: FEVER,MALIGNANT NEOPLASM OF PANCREAS Current Active Problems Acute alteration in mental status (Acute) Acute hypoxemic respiratory failure (Acute) Confusion state (Acute) DVT (deep venous thrombosis) (Acute) Fever (Acute) HTN (hypertension) (Acute) History of colon cancer (Acute) History of pulmonary embolism (Acute) Pancreatic cancer (Acute) Positive blood culture (Acute) Pulmonary embolism (Acute) Hospital Course: CHIEF COMPLAINT: fever PCP: Reyes, Oncology: [facility] HISTORY OF PRESENT ILLNESS: nancy is a 87 year old male with a significant past medical history of pancreatic CA (diagnosed recently) on chemo, last dose 2 weeks ago presented to the ED with fever x 2 days with associated malaise. Denies any other symptoms. Denies SOB, cough, chest pain, abdominal pain, N/V/D, dysuria, frequency. ER course was notable for: (1) WBC 17.4, 10% bands, lactic acid 2.7 (2) Sodium 132 (3) given vanc and zosyn Recent Travel: pt denies PAST MEDICAL HISTORY: pancreatic CA, HTN, ASHD, PE/DVT 2013, GERD, hiatal hernia, colon CA 1990, kidney stones PAST SURGICAL HISTORY: R hemicolectomy B/L cataract Social History: Smoking: pt denies Alcohol: pt denies Drugs: pt denies hospital: bilateral PE on CTA on lovenox BID postive blood culture strep intermedius- vancomycin then rocephin daily for total 4 weeks echo done no vegetations noted pancreatic cancer - removal of port to follow up with his oncologist at [place] after discharge from [facility] picc line placement for iv abx till december 07 Condition: Stable - Instructions Diet, Activity, Other Instructions: iv rocephin for 3 weeks till december 07 via picc line weekly cbc,cmp and magnesium level follow up with oncologist at [facility] after discharge from SNF Disposition: HALF-WAY FACILITY - Home Medications Comprehensive Discharge Medication List: Ambulatory Orders Amlodipine Besylate [Norvasc -] 10 mg PO DAILY 07/26/12 Lansoprazole [Prevacid -] 30 mg PO DAILY 07/26/12 Metoprolol Succinate [Toprol XL -] 50 mg PO DAILY 07/26/12 Montelukast Na [Singulair -] 10 mg PO HS 07/26/12 Aspirin 81 mg PO DAILY 08/15/12 Lactobacillus Acidophilus [Acidophilus] 1 each PO DAILY 08/15/12 [place]-3 Acid Ethyl Esters [Lovaza -] 2,000 mg PO DAILY 08/15/12 Red Yeast Rice 1,000 mg PO DAILY 08/15/12 Ranolazine [Ranexa -] 500 mg PO BID 08/24/13 Enoxaparin [Lovenox -] 0 mg SQ DAILY 11/09/17 Isosorbide Mononitrate [Isosorbide Mononitrate ER] 30 mg PO DAILY 11/09/17
--- NOTE | 2017-11-15 13:34 | PN ---
Progress Note (short form) - Note Progress Note: spoke to Mrs triana in detail about various options spoke to patient as well he wants snf placement plan to remove the chemoport today and then place picc line for iv abx for streptococcal bacterermia iv abx till december 07 Problem List - Problems (1) Positive blood culture Code(s): R78.81 - BACTEREMIA (2) Pulmonary embolism Code(s): I26.99 - OTHER PULMONARY EMBOLISM WITHOUT ACUTE COR PULMONALE (3) Acute alteration in mental status Code(s): R41.82 - ALTERED MENTAL STATUS, UNSPECIFIED (4) Pancreatic cancer Code(s): C25.9 - MALIGNANT NEOPLASM OF PANCREAS, UNSPECIFIED
--- NOTE | 2017-11-15 16:03 | PN ---
Progress Note (short form) - Note Progress Note: plan given inR Is > 1.5 to get vitamin K and then picc line placement once INR improve Problem List - Problems (1) Positive blood culture Code(s): R78.81 - BACTEREMIA (2) Pulmonary embolism Code(s): I26.99 - OTHER PULMONARY EMBOLISM WITHOUT ACUTE COR PULMONALE (3) Acute alteration in mental status Code(s): R41.82 - ALTERED MENTAL STATUS, UNSPECIFIED (4) Pancreatic cancer Code(s): C25.9 - MALIGNANT NEOPLASM OF PANCREAS, UNSPECIFIED
[2017-11-15] MEDS: PHYTONADIONE 10 MG/1 ML AMP SQ SCH (17:44)
--- NOTE | 2017-11-15 20:13 | PN ---
Progress Note (short form) - Note Progress Note: PATIENT SEEN AND EXAMINED PRIOR NOTES REVIEWED SCHEDULED FOR DISCHARGE, SNF TRANSFER WILL BE TREATED BY PICC LINE FOR STREP BACTEREMIA UPON COMPLETION WILL RETURN TO ONCOLOGIST AT [facility]
[2017-11-15] MEDS: MONTELUKAST NA 10 MG TABLET PO SCH (21:33)
[2017-11-15] MEDS: ACETAMINOPHEN 325 MG TABLET (FP) PO PRN (23:07)
[2017-11-16] MEDS: POTASSIUM CHLORIDE 20 MEQ in SODIUM CHLORIDE 1,000 ML IVPB SCH ×2 (04:45→13:51)
[2017-11-16] MEDS: INSULIN SLIDING SCALE (NOVOLOG) 1 VIAL SQ SCH ×4 (06:09→21:11)
[2017-11-16 07:17] LABS: INR 1.16 (0.82-1.09); PROTHROMBIN TIME (PATIENT) 13.1 SEC (9.7-13.0)
[2017-11-16 07:24] LABS: ALBUMIN 1.9 g/dl (3.4-5.0); ANION GAP 7 (8-16); BLOOD UREA NITROGEN 10 mg/dL (7-18); CALCIUM 7.9 mg/dL (8.5-10.1); CHLORIDE 107 mmol/L (98-107); CO2 26 mmol/L (21-32); GLUCOSE,RANDOM 100 mg/dL (74-106); MAGNESIUM 1.5 mg/dL (1.8-2.4); POTASSIUM 3.6 mmol/L (3.5-5.1); SODIUM 140 mmol/L (136-145)
[2017-11-16 07:28] LABS: ALK PHOS 78 U/L (45-117); BILIRUBIN,TOTAL 0.4 mg/dL (0.2-1.0); CREATININE 0.7 mg/dL (0.7-1.3); SGOT/AST 19 U/L (15-37); SGPT/ALT 18 U/L (12-78); TOT PROT 5.1 g/dl (6.4-8.2)
[2017-11-16] MEDS: AMINO ACIDS/PROTEIN HYDROLYS 30 ML LIQUID.PKT PO SCH ×2 (08:21→18:27)
--- NOTE | 2017-11-16 08:39 | DS ---
Physical Examination Vital Signs: Vital Signs Temperature 98.6 F 11/16/17 06:35 Pulse Rate 77 11/16/17 06:35 Respiratory Rate 20 11/16/17 06:35 Blood Pressure 132/68 11/16/17 06:35 O2 Sat by Pulse Oximetry (%) 97 11/15/17 21:00 Cardiovascular: Yes: S1, S2 Respiratory: Yes: Regular, CTA Bilaterally Gastrointestinal: Yes: Normal Bowel Sounds, Soft Labs: CBC, BMP 11/15/17 06:30 11/16/17 06:30 Discharge Summary Reason For Visit: FEVER,MALIGNANT NEOPLASM OF PANCREAS Current Active Problems Acute alteration in mental status (Acute) Acute hypoxemic respiratory failure (Acute) Confusion state (Acute) DVT (deep venous thrombosis) (Acute) Fever (Acute) HTN (hypertension) (Acute) History of colon cancer (Acute) History of pulmonary embolism (Acute) Pancreatic cancer (Acute) Positive blood culture (Acute) Pulmonary embolism (Acute) Hospital Course: 87 year old male with a significant past medical history of pancreatic CA ( diagnosed recently) on chemo, last dose 2 weeks ago presented to the ED with fever x 2 days with associated malaise. Denies any other symptoms. Denies SOB, cough, chest pain, abdominal pain, N/V/D, dysuria, frequency. ER course was notable for: (1) WBC 17.4, 10% bands, lactic acid 2.7 (2) Sodium 132 (3) given vanc and zosyn Recent Travel: pt denies PAST MEDICAL HISTORY: pancreatic CA, HTN, ASHD, PE/DVT 2013, GERD, hiatal hernia, colon CA 1990, kidney stones PAST SURGICAL HISTORY: R hemicolectomy B/L cataract Social History: Smoking: pt denies Alcohol: pt denies Drugs: pt denies hospital: bilateral PE on CTA on lovenox BID postive blood culture strep intermedius- vancomycin then rocephin daily for total 4 weeks echo done no vegetations noted pancreatic cancer - removal of port to follow up with his oncologist at [place] after discharge from [facility] picc line placement for iv abx till december 07 Condition: Stable - Instructions Diet, Activity, Other Instructions: iv rocephin for 3 weeks till december 07 via picc line weekly cbc,cmp and magnesium level follow up with oncologist at [facility] after discharge from [facility] Disposition: [facility]AC[facility] - Home Medications Comprehensive Discharge Medication List: Ambulatory Orders Amlodipine Besylate [Norvasc -] 10 mg PO DAILY 07/26/12 Lansoprazole [Prevacid -] 30 mg PO DAILY 07/26/12 Metoprolol Succinate [Toprol XL -] 50 mg PO DAILY 07/26/12 Montelukast Na [Singulair -] 10 mg PO HS 07/26/12 Aspirin 81 mg PO DAILY 08/15/12 Lactobacillus Acidophilus [Acidophilus] 1 each PO DAILY 08/15/12 [place]-3 Acid Ethyl Esters [Lovaza -] 2,000 mg PO DAILY 08/15/12 Ranolazine [Ranexa -] 500 mg PO BID 08/24/13 Isosorbide Mononitrate [Isosorbide Mononitrate ER] 30 mg PO DAILY 11/09/17 Ceftriaxone [Rocephin -] 2 gm IVPB DAILY #20 vial MDD 1 11/15/17 Enoxaparin [Lovenox -] 60 mg SQ BID #60 disp.syrin MDD 2 11/15/17 Magnesium Oxide [Mag-Ox -] 400 mg PO BID #10 tablet MDD 2 11/15/17 traMADol HCL [Ultram -] 50 mg PO Q8H PRN #10 tablet MDD 3 11/15/17
--- NOTE | 2017-11-16 09:20 | PN ---
Progress Note (short form) - Note Progress Note: Neurology HISTORY OF PRESENT ILLNESS: 87 year old male with a significant past medical history of pancreatic CA ( diagnosed recently) on chemo, last dose 2 weeks ago presented to the ED with fever x 2 days with associated malaise. Denied any other symptoms. Denied SOB, cough, chest pain, abdominal pain, N/V/D, dysuria, frequency. When seen last Tuesday, was awake and alert but was visibly depressed He had indicated based on infectious disease note that "he wanted to today ". He was able to tell me the name of the president but was not fully answering other questions such as where he is, though he indicated being aware that he is in the hospital. Today, more interactive and knows location as well as date and name of president. Does not appear depressed during my evaluation. Psych note reviewed, did not recommend medication. CT head compelted and reviewed, no acute changes. MRI brain reviewed and without acute changes. Neurologically appears to have improved mental status and mood. Currently on Ceftriaxone. Is at baseline mental status, wanted to discuss baseball this morning. Inquiring about discharge. No new neurologic events and stable. Active Medications Acetaminophen (Tylenol -) 650 mg PO Q6H PRN PRN Reason: FEVER Last Admin: 11/15/17 23:07 Dose: 650 mg Amino Acids (Prosource No Carb Liquid Pkt) 30 ml PO BID@0800,1730 [facility] Last Admin: 11/15/17 17:44 Dose: 30 ml Aspirin (Asa -) 81 mg PO DAILY [facility] Last Admin: 11/15/17 09:23 Dose: 81 mg Enoxaparin Sodium (Lovenox -) 60 mg SQ BID [facility] Last Admin: 11/15/17 21:32 Dose: 60 mg IV Flush (Picc Line Flush) 8 ml IVPUSH PRN PRN PRN Reason: Protocol Potassium Chloride 20 meq/ (Sodium Chloride) 1,010 mls @ 100 mls/hr IVPB Q10H [facility] Last Admin: 11/16/17 04:45 Dose: Not Given Ceftriaxone Sodium 2 gm/ (Dextrose) 100 mls @ 200 mls/hr IVPB DAILY [facility]; Protocol Last Admin: 11/15/17 09:21 Dose: 200 mls/hr Insulin Aspart (Novolog Vial Sliding Scale -) 1 vial SQ ACHS [facility]; Protocol Last Admin: 11/16/17 06:09 Dose: Not Given Isosorbide Mononitrate (Imdur -) 30 mg PO DAILY [facility] Last Admin: 11/15/17 09:23 Dose: 30 mg Lactobacillus Acidophilus (Bacid -) 1 tab PO DAILY [facility] Last Admin: 11/15/17 09:23 Dose: 1 tab Magnesium Oxide (Mag-Ox -) 400 mg PO BID [facility] Last Admin: 11/15/17 21:33 Dose: 400 mg Metoprolol Succinate (Toprol Xl -) 50 mg PO DAILY [facility] Last Admin: 11/15/17 09:23 Dose: 50 mg Montelukast Sodium (Singulair -) 10 mg PO HS [facility] Last Admin: 11/15/17 21:33 Dose: 10 mg Kxrvw-2-Spam Ethyl Esters (Lovaza -) 2 gm PO DAILY [facility] Last Admin: 11/15/17 09:23 Dose: 2 gm Pantoprazole Sodium (Protonix -) 40 mg PO DAILY [facility] Last Admin: 11/15/17 09:23 Dose: 40 mg Phytonadione (Aqua Mephyton Injection -) 5 mg SQ DAILY [facility] Stop: 11/17/17 10:01 Last Admin: 11/15/17 17:44 Dose: 5 mg Ranolazine (Ranexa -) 500 mg PO BID [facility] Last Admin: 11/15/17 21:33 Dose: 500 mg Vital Signs Period Temp Pulse Resp BP Sys/Olivares Pulse Ox Last 24 Hr 97.8 F-98.6 F 75-82 17-20 128-149/68-89 97 GENERAL: Awake, alert, and fully oriented, in no acute distress. HEAD: Normal with no signs of trauma. EYES: Pupils equal, round and reactive to light, extraocular movements intact, sclera anicteric, conjunctiva clear. No lid lag. EARS, NOSE, THROAT: Ears normal, nares patent, oropharynx clear without exudates. Moist mucous membranes. NECK: Normal range of motion, supple without lymphadenopathy, JVD, or masses. LUNGS: Breath sounds equal, clear to auscultation bilaterally. No wheezes. No accessory muscle use. crackles bilat bases HEART: Regular rate and rhythm, normal S1 and S2 without murmur, rub or gallop. ABDOMEN: Soft, nontender, not distended, normoactive bowel sounds, no guarding, no rebound, no masses. No hepatomegaly or splenomegaly. MUSCULOSKELETAL: Normal range of motion at all joints. No bony deformities or tenderness. No CVA tenderness. UPPER EXTREMITIES: 2+ pulses, warm, well-perfused. No cyanosis. No clubbing. No peripheral edema. LOWER EXTREMITIES: 2+ pulses, warm, well-perfused. No calf tenderness. No peripheral edema. NEUROLOGICAL: Cranial nerves II-XII intact. Normal speech. Moves all extremities grossly, sensory intact, PSYCHIATRIC: Cooperative. Good eye contact. Appropriate mood and affect. SKIN: Warm, dry, normal turgor, no rashes or lesions noted, normal capillary refill. CBCD WBC 8.7 K/mm3 (4.0-10.0) 11/15/17 06:30 RBC 2.96 M/mm3 (4.00-5.60) L 11/15/17 06:30 Hgb 8.5 GM/dL (11.7-16.9) L 11/15/17 06:30 Hct 25.4 % (35.4-49) L 11/15/17 06:30 MCV 85.8 fl (80-96) 11/15/17 06:30 MCHC 33.4 g/dl (32.0-35.9) 11/15/17 06:30 RDW 17.4 % (11.9-15.9) H 11/15/17 06:30 Plt Count 263 K/MM3 (134-434) D 11/15/17 06:30 MPV 9.7 fl (7.5-11.1) 11/15/17 06:30 CMP Sodium 142 mmol/L (136-145) 11/15/17 06:30 Potassium 4.0 mmol/L (3.5-5.1) 11/15/17 06:30 Chloride 108 mmol/L (98-107) H 11/15/17 06:30 Carbon Dioxide 26 mmol/L (21-32) 11/15/17 06:30 Anion Gap 8 (8-16) 11/15/17 06:30 BUN 11 mg/dL (7-18) 11/15/17 06:30 Creatinine 0.8 mg/dL (0.7-1.3) 11/15/17 06:30 Creat Clearance w eGFR > 60 (>60) 11/15/17 06:30 Calcium 8.3 mg/dL (8.5-10.1) L 11/15/17 06:30 Total Bilirubin 0.5 mg/dL (0.2-1.0) 11/15/17 06:30 AST 18 U/L (15-37) 11/15/17 06:30 ALT 18 U/L (12-78) 11/15/17 06:30 Alkaline Phosphatase 86 U/L (45-117) 11/15/17 06:30 Total Protein 5.4 g/dl (6.4-8.2) L 11/15/17 06:30 Albumin 1.9 g/dl (3.4-5.0) L 11/15/17 06:30 Ct head reviewed MRI brain reviewed ASSESSMENT/PLAN: 87 year old male with a significant past medical history of pancreatic CA ( diagnosed recently) on chemo, last dose 2 weeks ago presented to the ED with fever x 2 days with associated malaise. Denied any other symptoms. Denied SOB, cough, chest pain, abdominal pain, N/V/D, dysuria, frequency. When seen last Tuesday, was awake and alert but was visibly depressed He had indicated based on infectious disease note that "he wanted to today ". He was able to tell me the name of the president but was not fully answering other questions such as where he is, though he indicated being aware that he is in the hospital. Remains interactive and knows location as well as date and name of president. Does not appear depressed during my evaluation. Psych note reviewed, did not recommend medication. CT head compelted and reviewed, no acute changes. MRI brain without acute changes Neurologically improved mental status and mood. Currently on Ceftriaxone ID follow up hydration as needed Consider antidepressant if needed in future but seems to be in good spirits Onc follow up regarding pancreatic cancer Neurologically improved No further rec'd at this time
[2017-11-16] MEDS ORDERED: DEXTROSE 5%-WATER 100 ML IVPB ONE (10:16)
[2017-11-16] MEDS: OMEGA-3 ACID ETHYL ESTERS (FATTY-ACIDS) 1 GM CAPSULE (FP) PO SCH (10:18)
[2017-11-16] MEDS: RANOLAZINE E.R. 500 MG TABLET (FP) PO SCH ×2 (10:18→21:11)
[2017-11-16] MEDS: PANTOPRAZOLE 40 MG TABLET (FP) PO SCH (10:18)
[2017-11-16] MEDS: ENOXAPARIN NA (PORCINE) 60 MG/0.6 ML DISP.SYRIN SQ SCH ×2 (10:19→21:11)
[2017-11-16] MEDS: ISOSORBIDE MONONITRATE 30 MG TAB.SR.24H (FP) PO SCH (10:19)
[2017-11-16] MEDS: LACTOBACILLUS ACIDOPHILUS 1 TABLET PO SCH (10:19)
[2017-11-16] MEDS: ASPIRIN 81 MG CHEWABLE TABLETS PO SCH (10:20)
[2017-11-16] MEDS: MAGNESIUM OXIDE 400 MG TABLET (FP) PO SCH ×2 (10:20→21:11)
[2017-11-16] MEDS: CEFTRIAXONE 2 GM in DEXTROSE 5%-WATER 100 ML IVPB SCH (10:21)
[2017-11-16] MEDS: PHYTONADIONE 10 MG/1 ML AMP SQ SCH (10:29)
[2017-11-16 16:46] LABS: BASO % 0.1 % (0-2.0); EOS % 1.7 % (0-4.5); HEMATOCRIT 26.1 % (35.4-49); HEMOGLOBIN 8.3 GM/dL (11.7-16.9); LYMPH % 12.2 % (8-40); MEAN CELL VOLUME 87.5 fl (80-96); MEAN PLT VOLUME 10.2 fl (7.5-11.1); MONO % 8.2 % (3.8-10.2); NEUT % 77.8 % (42.8-82.8); PLATELET COUNT 291 K/MM3 (134-434); RBC 2.98 M/mm3 (4.00-5.60); RDW 18.3 % (11.9-15.9); WHITE BLOOD COUNT 10.4 K/mm3 (4.0-10.0)
[2017-11-16 17:41] LABS: ALBUMIN 2.2 g/dl (3.4-5.0); ALK PHOS 86 U/L (45-117); ANION GAP 8 (8-16); BILIRUBIN,TOTAL 0.3 mg/dL (0.2-1.0); BLOOD UREA NITROGEN 12 mg/dL (7-18); CALCIUM 8.3 mg/dL (8.5-10.1); CHLORIDE 108 mmol/L (98-107); CO2 26 mmol/L (21-32); CREATININE 0.9 mg/dL (0.7-1.3); GLUCOSE,RANDOM 97 mg/dL (74-106); POTASSIUM 4.7 mmol/L (3.5-5.1); SGOT/AST 19 U/L (15-37); SGPT/ALT 17 U/L (12-78); SODIUM 142 mmol/L (136-145); TOT PROT 5.8 g/dl (6.4-8.2)
[2017-11-16 19:30] LABS: ANISOCYTOSIS 2+; MACROCYTOSIS 2+
[2017-11-16 19:32] LABS: PLATELET ESTIMATE ADEQUATE
[2017-11-16] MEDS: MONTELUKAST NA 10 MG TABLET PO SCH (21:11)
[2017-11-17] MEDS: ACETAMINOPHEN 325 MG TABLET (FP) PO PRN (00:01)
[2017-11-17] MEDS: POTASSIUM CHLORIDE 20 MEQ in SODIUM CHLORIDE 1,000 ML IVPB SCH ×2 (00:10→00:45)
[2017-11-17] MEDS: INSULIN SLIDING SCALE (NOVOLOG) 1 VIAL SQ SCH ×2 (06:27→11:39)
[2017-11-17] MEDS: AMINO ACIDS/PROTEIN HYDROLYS 30 ML LIQUID.PKT PO SCH (08:12)
--- NOTE | 2017-11-17 09:07 | PN ---
Progress Note (short form) - Note Progress Note: DISCUSSED WITH DR NIEVES FROM [facility] PATIENT WILL HAVE PORT TESTED AND EVALUATED TODAY IF FUNCTIONING PATIENT CAN LEAVE WITH PORT FOR IV ACCESS. IF NOT FUNCTIONING THEN PATIENT WILL NEED PICC LINE FOR ACCESS CAN LEAVE TODAY WEITHER WAY, OFF ASPIRIN IF PORT NEEDS TO BE REMOVED IN 7 DAYS.
[2017-11-17] MEDS ORDERED: ALTEPLASE 2 MG VIAL CVP ONE (09:45)
[2017-11-17] MEDS ORDERED: PT OWN MED DRAWER 7, Y5N ONE (09:49)
[2017-11-17] MEDS ORDERED: DEXTROSE 5%-WATER 100 ML IVPB ONE (09:49)
[2017-11-17] MEDS: OMEGA-3 ACID ETHYL ESTERS (FATTY-ACIDS) 1 GM CAPSULE (FP) PO SCH (09:58)
[2017-11-17] MEDS: RANOLAZINE E.R. 500 MG TABLET (FP) PO SCH (09:58)
[2017-11-17] MEDS: LACTOBACILLUS ACIDOPHILUS 1 TABLET PO SCH (09:58)
[2017-11-17] MEDS: PHYTONADIONE 10 MG/1 ML AMP SQ SCH (09:58)
[2017-11-17] MEDS: MAGNESIUM OXIDE 400 MG TABLET (FP) PO SCH (09:58)
[2017-11-17] MEDS: ISOSORBIDE MONONITRATE 30 MG TAB.SR.24H (FP) PO SCH (09:58)
[2017-11-17] MEDS: ASPIRIN 81 MG CHEWABLE TABLETS PO SCH (09:59)
[2017-11-17] MEDS: CEFTRIAXONE 2 GM in DEXTROSE 5%-WATER 100 ML IVPB SCH (09:59)
[2017-11-17] MEDS: PANTOPRAZOLE 40 MG TABLET (FP) PO SCH (09:59)
--- NOTE | 2017-11-17 10:04 | PN ---
Progress Note (short form) - Note Progress Note: Neurology HISTORY OF PRESENT ILLNESS: 87 year old male with a significant past medical history of pancreatic CA ( diagnosed recently) on chemo, last dose 2 weeks ago presented to the ED with fever x 2 days with associated malaise. Denied any other symptoms. Denied SOB, cough, chest pain, abdominal pain, N/V/D, dysuria, frequency. When seen last Tuesday, was awake and alert but was visibly depressed He had indicated based on infectious disease note that "he wanted to today ". He was able to tell me the name of the president but was not fully answering other questions such as where he is, though he indicated being aware that he is in the hospital. Today, more interactive and knows location as well as date and name of president. Does not appear depressed during my evaluation. Psych note reviewed, did not recommend medication. CT head compelted and reviewed, no acute changes. MRI brain reviewed and without acute changes. Neurologically appears to have improved mental status and mood. Is at baseline mental status, No new neurologic events and stable. Possibly for transfer to assisted. Feels better and with less abdominal discomfort. Active Medications Acetaminophen (Tylenol -) 650 mg PO Q6H PRN PRN Reason: FEVER Last Admin: 11/17/17 00:01 Dose: 650 mg Amino Acids (Prosource No Carb Liquid Pkt) 30 ml PO BID@0800,1730 [facility] Last Admin: 11/17/17 08:12 Dose: 30 ml Aspirin (Asa -) 81 mg PO DAILY [facility] Last Admin: 11/17/17 09:59 Dose: Not Given Enoxaparin Sodium (Lovenox -) 60 mg SQ BID [facility] Last Admin: 11/16/17 21:11 Dose: 60 mg IV Flush (Picc Line Flush) 8 ml IVPUSH PRN PRN PRN Reason: Protocol Potassium Chloride 20 meq/ (Sodium Chloride) 1,010 mls @ 100 mls/hr IVPB Q10H [facility] Last Admin: 11/17/17 00:45 Dose: Not Given Ceftriaxone Sodium 2 gm/ (Dextrose) 100 mls @ 200 mls/hr IVPB DAILY [facility]; Protocol Last Admin: 11/17/17 09:59 Dose: 200 mls/hr Insulin Aspart (Novolog Vial Sliding Scale -) 1 vial SQ ACHS [facility]; Protocol Last Admin: 11/17/17 06:27 Dose: Not Given Isosorbide Mononitrate (Imdur -) 30 mg PO DAILY [facility] Last Admin: 11/17/17 09:58 Dose: 30 mg Lactobacillus Acidophilus (Bacid -) 1 tab PO DAILY [facility] Last Admin: 11/17/17 09:58 Dose: 1 tab Magnesium Oxide (Mag-Ox -) 400 mg PO BID [facility] Last Admin: 11/17/17 09:58 Dose: 400 mg Metoprolol Succinate (Toprol Xl -) 50 mg PO DAILY [facility] Last Admin: 11/17/17 09:58 Dose: 50 mg Montelukast Sodium (Singulair -) 10 mg PO HS [facility] Last Admin: 11/16/17 21:11 Dose: 10 mg Torlr-1-Myyr Ethyl Esters (Lovaza -) 2 gm PO DAILY [facility] Last Admin: 11/17/17 09:58 Dose: 2 gm Pantoprazole Sodium (Protonix -) 40 mg PO DAILY [facility] Last Admin: 11/17/17 09:59 Dose: 40 mg Ranolazine (Ranexa -) 500 mg PO BID [facility] Last Admin: 11/17/17 09:58 Dose: 500 mg Vital Signs Period Temp Pulse Resp BP Sys/Olivares Pulse Ox Last 24 Hr 97.4 F-98.1 F 77-82 20-20 130-139/62-87 97 GENERAL: Awake, alert, and fully oriented, in no acute distress. HEAD: Normal with no signs of trauma. EYES: Pupils equal, round and reactive to light, extraocular movements intact, sclera anicteric, conjunctiva clear. No lid lag. EARS, NOSE, THROAT: Ears normal, nares patent, oropharynx clear without exudates. Moist mucous membranes. NECK: Normal range of motion, supple without lymphadenopathy, JVD, or masses. LUNGS: Breath sounds equal, clear to auscultation bilaterally. No wheezes. No accessory muscle use. crackles bilat bases HEART: Regular rate and rhythm, normal S1 and S2 without murmur, rub or gallop. ABDOMEN: Soft, nontender, not distended, normoactive bowel sounds, no guarding, no rebound, no masses. No hepatomegaly or splenomegaly. MUSCULOSKELETAL: Normal range of motion at all joints. No bony deformities or tenderness. No CVA tenderness. UPPER EXTREMITIES: 2+ pulses, warm, well-perfused. No cyanosis. No clubbing. No peripheral edema. LOWER EXTREMITIES: 2+ pulses, warm, well-perfused. No calf tenderness. No peripheral edema. NEUROLOGICAL: Cranial nerves II-XII intact. Normal speech. Moves all extremities grossly, sensory intact, PSYCHIATRIC: Cooperative. Good eye contact. Appropriate mood and affect. SKIN: Warm, dry, normal turgor, no rashes or lesions noted, normal capillary refill. CBCD WBC 10.4 K/mm3 (4.0-10.0) H 11/16/17 16:00 RBC 2.98 M/mm3 (4.00-5.60) L 11/16/17 16:00 Hgb 8.3 GM/dL (11.7-16.9) L 11/16/17 16:00 Hct 26.1 % (35.4-49) L 11/16/17 16:00 MCV 87.5 fl (80-96) 11/16/17 16:00 MCHC 32.0 g/dl (32.0-35.9) 11/16/17 16:00 RDW 18.3 % (11.9-15.9) H 11/16/17 16:00 Plt Count 291 K/MM3 (134-434) 11/16/17 16:00 MPV 10.2 fl (7.5-11.1) 11/16/17 16:00 CMP Sodium 142 mmol/L (136-145) 11/16/17 16:00 Potassium 4.7 mmol/L (3.5-5.1) D 11/16/17 16:00 Chloride 108 mmol/L (98-107) H 11/16/17 16:00 Carbon Dioxide 26 mmol/L (21-32) 11/16/17 16:00 Anion Gap 8 (8-16) 11/16/17 16:00 BUN 12 mg/dL (7-18) 11/16/17 16:00 Creatinine 0.9 mg/dL (0.7-1.3) 11/16/17 16:00 Creat Clearance w eGFR > 60 (>60) 11/16/17 16:00 Calcium 8.3 mg/dL (8.5-10.1) L 11/16/17 16:00 Total Bilirubin 0.3 mg/dL (0.2-1.0) 11/16/17 16:00 AST 19 U/L (15-37) 11/16/17 16:00 ALT 17 U/L (12-78) 11/16/17 16:00 Alkaline Phosphatase 86 U/L (45-117) 11/16/17 16:00 Total Protein 5.8 g/dl (6.4-8.2) L 11/16/17 16:00 Albumin 2.2 g/dl (3.4-5.0) L 11/16/17 16:00 Ct head reviewed MRI brain reviewed ASSESSMENT/PLAN: 87 year old male with a significant past medical history of pancreatic CA ( diagnosed recently) on chemo, last dose 2 weeks ago presented to the ED with fever x 2 days with associated malaise. Denied any other symptoms. Denied SOB, cough, chest pain, abdominal pain, N/V/D, dysuria, frequency. When seen last Tuesday, was awake and alert but was visibly depressed He had indicated based on infectious disease note that "he wanted to today ". He was able to tell me the name of the president but was not fully answering other questions such as where he is, though he indicated being aware that he is in the hospital. Remains interactive and knows location as well as date and name of president. Does not appear depressed during my evaluation. Psych note reviewed, did not recommend medication. CT head compelted and reviewed, no acute changes. MRI brain without acute changes hydration as needed Consider antidepressant if needed in future but seems to be in good spirits Onc follow up regarding pancreatic cancer Neurologically improved No further rec'd at this time
--- NOTE | 2017-11-17 10:37 | PN ---
Progress Note, Physician History of Present Illness: No complaints No c/o fever/ chills Afebrile WBC slightly elevated ESR 110 CRP 14.7 - Current Medication List Current Medications: Active Medications Acetaminophen (Tylenol -) 650 mg PO Q6H PRN PRN Reason: FEVER Last Admin: 11/17/17 00:01 Dose: 650 mg Amino Acids (Prosource No Carb Liquid Pkt) 30 ml PO BID@0800,1730 [facility] Last Admin: 11/17/17 08:12 Dose: 30 ml Aspirin (Asa -) 81 mg PO DAILY [facility] Last Admin: 11/17/17 09:59 Dose: Not Given Enoxaparin Sodium (Lovenox -) 60 mg SQ BID [facility] Last Admin: 11/16/17 21:11 Dose: 60 mg IV Flush (Picc Line Flush) 8 ml IVPUSH PRN PRN PRN Reason: Protocol Potassium Chloride 20 meq/ (Sodium Chloride) 1,010 mls @ 100 mls/hr IVPB Q10H [facility] Last Admin: 11/17/17 00:45 Dose: Not Given Ceftriaxone Sodium 2 gm/ (Dextrose) 100 mls @ 200 mls/hr IVPB DAILY [facility]; Protocol Last Admin: 11/17/17 09:59 Dose: 200 mls/hr Insulin Aspart (Novolog Vial Sliding Scale -) 1 vial SQ ACHS [facility]; Protocol Last Admin: 11/17/17 06:27 Dose: Not Given Isosorbide Mononitrate (Imdur -) 30 mg PO DAILY [facility] Last Admin: 11/17/17 09:58 Dose: 30 mg Lactobacillus Acidophilus (Bacid -) 1 tab PO DAILY [facility] Last Admin: 11/17/17 09:58 Dose: 1 tab Magnesium Oxide (Mag-Ox -) 400 mg PO BID [facility] Last Admin: 11/17/17 09:58 Dose: 400 mg Metoprolol Succinate (Toprol Xl -) 50 mg PO DAILY [facility] Last Admin: 11/17/17 09:58 Dose: 50 mg Montelukast Sodium (Singulair -) 10 mg PO HS [facility] Last Admin: 11/16/17 21:11 Dose: 10 mg Phioy-2-Ngsn Ethyl Esters (Lovaza -) 2 gm PO DAILY [facility] Last Admin: 11/17/17 09:58 Dose: 2 gm Pantoprazole Sodium (Protonix -) 40 mg PO DAILY [facility] Last Admin: 07/26/18 09:59 Dose: 40 mg Ranolazine (Ranexa -) 500 mg PO BID [facility] Last Admin: 11/17/17 09:58 Dose: 500 mg - Objective Vital Signs: Vital Signs Temperature 97.4 F L 11/17/17 06:11 Pulse Rate 82 11/17/17 06:11 Respiratory Rate 20 11/17/17 06:11 Blood Pressure 139/73 11/17/17 06:11 O2 Sat by Pulse Oximetry (%) 97 11/16/17 21:00 Cardiovascular: Yes: Regular Rate and Rhythm, S1, S2. No: Murmur Respiratory: Yes: CTA Bilaterally Gastrointestinal: Yes: Normal Bowel Sounds, Soft. No: Tenderness Edema: Yes Edema: LLE: 1+, RLE: 1+ Labs: CBC, BMP 11/16/17 16:00 11/16/17 16:00 INR, PTT INR 1.16 (0.82-1.09) H 11/16/17 06:30 Assessment/Plan Streptococcal bacteremia S/P sepsis syndrome Pancreatic ca Continue ceftriaxone 2gm IVPB q24h Day #01/20 antibiotic tx
[2017-11-17] MEDS: ENOXAPARIN NA (PORCINE) 60 MG/0.6 ML DISP.SYRIN SQ SCH (11:37)
[2017-11-17 13:44] VITALS: TEMP 97.6
--- NOTE | 2017-11-17 14:56 | PN ---
Progress Note, Physician - Current Medication List Current Medications: Active Medications Acetaminophen (Tylenol -) 650 mg PO Q6H PRN PRN Reason: FEVER Last Admin: 11/17/17 00:01 Dose: 650 mg Amino Acids (Prosource No Carb Liquid Pkt) 30 ml PO BID@0800,1730 [facility] Last Admin: 11/17/17 08:12 Dose: 30 ml Aspirin (Asa -) 81 mg PO DAILY [facility] Last Admin: 11/17/17 09:59 Dose: Not Given Enoxaparin Sodium (Lovenox -) 60 mg SQ BID [facility] Last Admin: 11/17/17 11:37 Dose: 60 mg IV Flush (Picc Line Flush) 8 ml IVPUSH PRN PRN PRN Reason: Protocol Potassium Chloride 20 meq/ (Sodium Chloride) 1,010 mls @ 100 mls/hr IVPB Q10H [facility] Last Admin: 11/17/17 00:45 Dose: Not Given Ceftriaxone Sodium 2 gm/ (Dextrose) 100 mls @ 200 mls/hr IVPB DAILY [facility]; Protocol Last Admin: 11/17/17 09:59 Dose: 200 mls/hr Insulin Aspart (Novolog Vial Sliding Scale -) 1 vial SQ ACHS [facility]; Protocol Last Admin: 11/17/17 11:39 Dose: Not Given Isosorbide Mononitrate (Imdur -) 30 mg PO DAILY [facility] Last Admin: 11/17/17 09:58 Dose: 30 mg Lactobacillus Acidophilus (Bacid -) 1 tab PO DAILY [facility] Last Admin: 11/17/17 09:58 Dose: 1 tab Magnesium Oxide (Mag-Ox -) 400 mg PO BID [facility] Last Admin: 11/17/17 09:58 Dose: 400 mg Metoprolol Succinate (Toprol Xl -) 50 mg PO DAILY [facility] Last Admin: 11/17/17 09:58 Dose: 50 mg Montelukast Sodium (Singulair -) 10 mg PO HS [facility] Last Admin: 11/16/17 21:11 Dose: 10 mg Yxypt-8-Udtf Ethyl Esters (Lovaza -) 2 gm PO DAILY [facility] Last Admin: 11/17/17 09:58 Dose: 2 gm Pantoprazole Sodium (Protonix -) 40 mg PO DAILY [facility] Last Admin: 11/17/17 09:59 Dose: 40 mg Ranolazine (Ranexa -) 500 mg PO BID [facility] Last Admin: 11/17/17 09:58 Dose: 500 mg - Objective Vital Signs: Vital Signs Temperature 97.6 F 11/17/17 09:00 Pulse Rate 63 11/17/17 09:00 Respiratory Rate 18 11/17/17 09:00 Blood Pressure 122/51 11/17/17 09:00 O2 Sat by Pulse Oximetry (%) 97 11/17/17 09:00 Labs: CBC, BMP 11/16/17 16:00 11/16/17 16:00 INR, PTT INR 1.16 (0.82-1.09) H 11/16/17 06:30 Problem List - Problems (1) Acute hypoxemic respiratory failure Code(s): J96.01 - ACUTE RESPIRATORY FAILURE WITH HYPOXIA (2) Fever Code(s): R50.9 - FEVER, UNSPECIFIED (3) HTN (hypertension) Code(s): I10 - ESSENTIAL (PRIMARY) HYPERTENSION (4) History of colon cancer Code(s): Z85.038 - PERSONAL HISTORY OF MALIGNANT NEOPLASM OF LARGE INTESTINE (5) History of pulmonary embolism Code(s): Z86.711 - PERSONAL HISTORY OF PULMONARY EMBOLISM (6) Pancreatic cancer Code(s): C25.9 - MALIGNANT NEOPLASM OF PANCREAS, UNSPECIFIED Assessment/Plan 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
[2017-11-17 15:51] VITALS: BP 140/77; PULSE 78
== END 2017-11-17 16:27 | DRG 871 ==
LOC: JER 22:06 → JERBED 11-09 00:04 → J6S 11-09 04:24
PROVIDERS: ADMIT Internal Medicine; ATTEND Family Medicine
DX: A41.9 Sepsis, unspecified organism (principal); J96.01 Acute respiratory failure with hypoxia; I26.99 Other pulmonary embolism without acute cor pulmonale; C25.9 Malignant neoplasm of pancreas, unspecified; J98.11 Atelectasis; E87.2 Acidosis; I10 Essential (primary) hypertension; I25.10 Atherosclerotic heart disease of native coronary artery without angina pectoris; K21.9 Gastro-esophageal reflux disease without esophagitis; Z85.038 Personal history of other malignant neoplasm of large intestine; R41.82 Altered mental status, unspecified; D64.9 Anemia, unspecified
CPT/HCPCS: 36415; 36600; 70450-TC; 70553-TC; 71045-TC-FY; 71275-TC; 74177-TC; 80053; 80076; 81003; 82272; 82803; 82962; 83605; 83735; 84100; 84484; 85025; 85610; 85651; 85730; 86140; 87040; 87086; 87324; 87449; 93005; 93010; 93306-TC; 93880-TC; 93970-TC; 94010; 97116-GP; 97161-GP; 99284-25; G0480; J0131; J7030

== ENCOUNTER 2018-06-02 16:23 | Inpatient (IN) | payer OTHER ==
--- NOTE | 2018-06-02 17:12 | PDOC ---
History of Present Illness - General Stated Complaint: SICK Time Seen by Provider: 06/02/18 17:04 - History of Present Illness Initial Comments: 06/02/18 17:11 88 yo M with h/o HTN, HLD, CAD, PE/DVT 2014, GERD, hiatal hernia, , kidney stones, colon ca., metastatic pancreatic ca., on chemo last dose, BIBA with nausea, abdominal pain. Patient arrives from [facility], with 1 episode of pink tinged , frothy emeisis, at PMD Office ( [facility]), concerned for GI bleed. Patient currently does not endorse lower abdominal pain, or nausea, but reports earlier dull RLQ and mid-abdominal pain following chemo. Normal bowel habits, and PO intake. Does not recall vomiting. States that he has been experiencing SOB at rest, Spangler, non productive cough, sinus congestion x 2 days. Recent [facility] hospital admission (11/09-11/17/17) for urosepsis, BL PE's. Patient denies Michael, palpitations, leg swelling/pain, N/V, F,C, CP, urinary complaints, abdominal pain, hematuria/BPR, diarrhea, constipation, lightheadedness, weakness, sensory changes. PMHx: as noted above. Denies h/o ACS/MT, stent placement, CABg, PE/DVT. ROS: as noted SHx: Denies Etoh, tobacco use, IVDA Allergies: PCN Past History - Past Medical History Allergies/Adverse Reactions: Allergies Allergy/AdvReac Type Severity Reaction Status Date / Time No Known Allergies Allergy Verified 11/08/17 22:28 Home Medications: Ambulatory Orders Lansoprazole [Prevacid -] 30 mg PO DAILY 07/26/12 Metoprolol Succinate [Toprol XL -] 50 mg PO DAILY 07/26/12 Montelukast Na [Singulair -] 10 mg PO HS 07/26/12 Lactobacillus Acidophilus [Acidophilus] 1 each PO DAILY 08/15/12 E[place]ola-3 Acid Ethyl Esters [Lovaza -] 2,000 mg PO DAILY 08/15/12 Ranolazine [Ranexa -] 500 mg PO BID 08/24/13 Isosorbide Mononitrate [Isosorbide Mononitrate ER] 30 mg PO DAILY 11/09/17 Enoxaparin [Lovenox -] 60 mg SQ BID #60 disp.syrin [facility] 2 11/15/17 Magnesium Oxide [Mag-Ox -] 400 mg PO BID #10 tablet [facility] 2 11/15/17 Anemia: No Asthma: No Cancer: Yes (COLON CANCER remission, pancreatic ca) Cardiac Disorders: Yes (H/O PALPITATION; PULMONARY EMBOLI/DVT;ASHD) CVA: No COPD: No CHF: No Dementia: No Diabetes: No GI Disorders: Yes (GERD, HIATAL HERNIA) Disorders: (NEPHROLITHIASIS S/PESWL) HTN: Yes Hypercholesterolemia: No Liver Disease: No Seizures: No Thyroid Disease: No - Surgical History Abdominal Surgery: Yes (RIGHT HEMICOLECTOMY) Appendectomy: No Cardiac Surgery: No Cholecystectomy: No Lung Surgery: No Neurologic Surgery: No Orthopedic Surgery: No - Suicide/Smoking/Psychosocial Hx Smoking Status: No Smoking History: Former smoker Have you smoked in the past 12 months: No Number of Cigarettes Smoked Daily: 0 If you are a former smoker, when did you quit?: 1953 Hx Alcohol Use: Yes (socially until chemo began) Drug/Substance Use Hx: No Substance Use Type: None Hx Substance Use Treatment: No Review of Systems - Review of Systems Comments:: 06/02/18 17:16 GENERAL/CONSTITUTIONAL: No fever or chills. No weakness. HEAD, EYES, EARS, NOSE AND THROAT: No change in vision. No ear pain or discharge. No sore throat. CARDIOVASCULAR: + cough. No chest pain or shortness of breath RESPIRATORY: + cough. No wheezing, or hemoptysis. GASTROINTESTINAL: No nausea, vomiting, diarrhea or constipation. GENITOURINARY: No dysuria, frequency, or change in urination. MUSCULOSKELETAL: No joint or muscle swelling or pain. No neck or back pain. SKIN: No rash NEUROLOGIC: No headache, vertigo, loss of consciousness, or change in strength/ sensation. ENDOCRINE: No increased thirst. No abnormal weight change HEMATOLOGIC/LYMPHATIC: No anemia, easy bleeding, or history of blood clots. ALLERGIC/IMMUNOLOGIC: No hives or skin allergy. *Physical Exam - Physical Exam Comments: 06/02/18 17:16 GENERAL: Awake, alert, and fully oriented, in no acute distress HEAD: No signs of trauma, normocephalic, atraumatic EYES: PERRLA, EOMI, sclera anicteric, conjunctiva clear ENT: Auricles normal inspection, hearing grossly normal, nares patent, oropharynx clear without exudates. Moist mucosa NECK: Normal ROM, supple, no lymphadenopathy, JVD, or masses LUNGS: No distress, speaks full sentences, clear to auscultation bilaterally HEART: Regular rate and rhythm, normal S1 and S2, no murmurs, rubs or gallops, peripheral pulses normal and equal bilaterally. ABDOMEN: + midabdominal ttp. Soft, NDS, normoactive bowel sounds. No guarding, no rebound. No masses RECTAL: Absent gross blood, hemmorhoids, fissures, abscess. EXTREMITIES : Normal inspection, Normal range of motion, no edema. No clubbing or cyanosis. NEUROLOGICAL: Cranial nerves II through XII grossly intact. Normal speech, normal gait, no focal sensorimotor deficits SKIN: Warm, Dry, normal turgor, no rashes or lesions noted ED Treatment Course - LABORATORY CBC & Chemistry Diagram: 06/02/18 06:15 06/02/18 20:30 Medical Decision Making - Medical Decision Making 06/02/18 18:06 88 yo M with h/o HTN, HLD, CAD, PE/DVT 2014, GERD, hiatal hernia, , kidney stones, colon ca., metastatic pancreatic ca., on chemo last dose, BIBA with nausea, abdominal pain. Vitals wnl, AF, A&Ox3. Physical exam with midabdominal ttp, otherwise unremarkable. ACS/MT r/o. R/o PNA. Will consider neutropenia, colitis/teflitis, appendicitis, diverticulitis, cystitis, nephrolithaisis, URI/ viral. Will assess for VBI/TIA, cardiac dysarrythmias, hypoglycemia, electrolyte abnml, metabolic and toxic derangements, acid-base disturbances, infection. Will provide IVF, analgesia, and reasses. ED Course: 06/02/18 20:15 CBC: Unremarkable H/H: 10.0/29.7 Trop: Neg Ua: Neg Flu A + Rectal temp 100.4, 91 % 02 RA, tylenol 1000 mg, NS 1 L 06/02/18 21:51 BUN/Cr: 24/1.4 Trop: Neg Patient endorsed and accepted by Dr. Esposito *DC/Admit/Observation/Transfer Diagnosis at time of Disposition: Hypoxia, Flu, KATI (acute kidney injury) Sepsis Qualifiers: Sepsis type: sepsis due to unspecified organism Qualified Code(s): A41.9 - Sepsis, unspecified organism - Discharge Dispostion Condition at time of disposition: Stable Decision to Admit order: Yes - Referrals Referrals: Floyd Chambers MD [Primary Care Provider] - - Patient Instructions - Post Discharge Activity
[2018-06-02 18:06] VITALS: BMI 27.2
[2018-06-02] MEDS ORDERED: SODIUM CHLORIDE 1,000 ML IV STA (18:07)
[2018-06-02 18:31] LABS: BASO % 0.2 % (0-2.0); EOS % 0.1 % (0-4.5); HEMATOCRIT 29.7 % (35.4-49); LYMPH % 6.7 % (8-40); MCH 30.4 pg (25.7-33.7); MCHC 33.7 g/dl (32.0-35.9); MEAN CELL VOLUME 90.3 fl (80-96); MEAN PLT VOLUME 9.6 fl (7.5-11.1); MONO % 7.8 % (3.8-10.2); NEUT % 85.2 % (42.8-82.8); PLATELET COUNT 113 K/MM3 (134-434); RBC 3.28 M/mm3 (4.00-5.60); RDW 15.8 % (11.9-15.9); WHITE BLOOD COUNT 4.4 K/mm3 (4.0-10.0)
--- NOTE | 2018-06-02 19:04 | PDOC ---
Attending Attestation - Resident Resident Name: Nilo Harrison - ED Attending Attestation I have performed the following: I have examined & evaluated the patient, The case was reviewed & discussed with the resident, I agree w/resident's findings & plan, Exceptions are as noted - Physicial Exam PE: 06/02/18 20:20 GENERAL: The patient is awake, alert, Nontoxic - in no acute distress. HEAD: Normocephalic, atraumatic. EYES: extraocular movements intact, sclera anicteric, conjunctiva clear. ENT: Normal voice, Moist mucous membranes. NECK: Normal range of motion, supple LUNGS: Breath sounds equal, clear to auscultation bilaterally. No wheezes, no rhonchi, no rales. HEART: Regular rate and rhythm, normal S1 and S2 without murmur, rub or gallop. ABDOMEN: Soft, nontender, No guarding, no rebound. . No CVA tenderness EXTREMITIES: Normal range of motion, no edema. No clubbing or cyanosis. No cords, erythema, or tenderness. NEUROLOGICAL: No facial assymetry, Normal speech, PSYCH: Normal mood, normal affect. SKIN: hot to touch, Dry, normal turgor, - Medical Decision Making 06/02/18 19:02 88y M htn, hl, remote colon ca, current metastatic pancreatitic ca, currently being managed by oncology, sent to [facility] by dr. olsen office for n/v, dull rlq pain. denies any abd pain, nausea currently. pt endorses sob, nonproductive cough the past few days. denies any fever/chills, cp, weiss, leg swelling, uriary symptoms. ddx, kidney stone for his abd pain no current pain, nausea or vomiting labs reviewed, +influenza A pt noted mildly hypoxic to low 90s - will likely admit for management of they hypoxia <Alex,Danilo - Last Filed: 06/02/18 20:34> - HPI HPI: 06/02/18 20:50 "The patient is an 88-year-old male with past medical history significant for Colon CA (1990), metastatic pancreatic CA (on Chemo, next appointment on Tuesday), HTN, HLD, ASHD, PE (2002)/DVT 2013, GERD, hiatal hernia, kidney stones presents to the emergency department via EMS from [facility] with nausea and vomiting. The patient was at the doctors office earlier today, following up on symptoms of a runny nose, fatigue, cough, congestions, and shaky hands for the past 1 day. Per records, the patient took 50 mg of tramadol earlier today. During the visit, the patient had an episode of pink- tinged emesis and was sent to the ER for further mangaement. At the ER, the patient denies abdominal pain. The patient reports symptoms of generalized body ache, fatigue, and nonproductive cough for a few days. Denies diarrhea, testicular pain, abdominal pain, chest pain, fever, chills, WEISS, urinary symptoms. Allergies: NKDA Surgical history: R hemicolectomy and B/L cataract Social history: PCP: Dr. Chambers Oncology: Dr. shannon @ [place]. " - Medical Decision Making 06/02/18 20:50 Documentation prepared by Tory Martinez, acting as medical records library professor for Danilo Johnson MD. <Tory Martinez - Last Filed: 06/02/18 20:50> Heart Score/ECG Review - ECG Impressions Comment:: 06/02/18 20:34 Twelve-lead EKG was performed and reviewed by me. There is normal sinus rhythm with a normal rate. rate of 92 The axis is normal. The intervals are normal. There is normal R wave progression There are no ST or T wave abnormalities. PACs noted <Danilo Johnson - Last Filed: 06/02/18 20:34>
[2018-06-02 19:30] LABS: URINE APPEARANCE SLCLOUDY; URINE BILIRUBIN NEGATIVE (<2.0 mg/dL); URINE COLOR YELLOW; URINE GLUCOSE (UA) NEGATIVE (NEGATIVE); URINE KETONE NEGATIVE (NEGATIVE); URINE LEUK ESTERASE NEGATIVE (NEGATIVE); URINE NITRITE NEGATIVE (NEGATIVE); URINE PROTEIN NEGATIVE (NEGATIVE); URINE UROBILINOGEN NEGATIVE mg/dL (0.2-1.0)
[2018-06-02 20:03] LABS: CALCIUM OXALATE CRYSTALS RARE /hpf (NONE SEEN); URINE HYALINE CAST 1 /lpf; URINE MUCUS RARE
[2018-06-02] MEDS ORDERED: ACETAMINOPHEN 1000 MG/100 ML VIAL (NON FORMULARY) IVPB ONE (20:16)
[2018-06-02] MEDS ORDERED: ACETAMINOPHEN INJECTION 100 ML IVPB ONE (20:26)
[2018-06-02 20:43] LABS: VENOUS PC02 38.8 mmHg (38-52); VENOUS PH 7.37 (7.32-7.42)
[2018-06-02 21:11] LABS: INR 2.82 (0.83-1.09); PROTHROMBIN TIME (PATIENT) 33.6 SEC (9.7-13.0)
[2018-06-02 21:14] LABS: ACTIVATED PTT 38.2 SECONDS (25.2-36.5)
[2018-06-02 21:21] LABS: ALBUMIN 3.1 g/dl (3.4-5.0); ALK PHOS 64 U/L (45-117); ANION GAP 9 MMOL/L (8-16); BILIRUBIN,TOTAL 0.4 mg/dL (0.2-1); BLOOD UREA NITROGEN 23 mg/dL (7-18); CHLORIDE 107 mmol/L (98-107); CO2 22 mmol/L (21-32); CREATININE 1.4 mg/dL (0.55-1.3); GLUCOSE,RANDOM 111 mg/dL (74-106); POTASSIUM 4.1 mmol/L (3.5-5.1); SGOT/AST 21 U/L (15-37); SGPT/ALT 31 U/L (13-61); SODIUM 137 mmol/L (136-145); TOT PROT 5.7 g/dl (6.4-8.2)
--- NOTE | 2018-06-02 23:57 | HP ---
CHIEF COMPLAINT: Cough x2 weeks PCP: Dr. Chambers HISTORY OF PRESENT ILLNESS: Seen and examined; thank you Dr. Chambers for allowing us to take part in the care of this patient. 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 Mast), and hx biliary stenting. He presents today for a CC of Cough with some mild SOB that has been going on for about a month but has been worse for the past week, and in particular several days. He was at his PCP office earlier int he day and noted sx of generalized body ache, fatugue, and non-productive cough for several days. He was thus sent to the ER for further treatment and monitoring. In the ER he was found to be flu positive and was started on tamiflu. Due to him being found at 91% on RA decision was made to admit and he will be brought to the medicine service overnight and with Dr. Chambers in the AM. PAST MEDICAL HISTORY: Discussed above PAST SURGICAL HISTORY: Discussed above Social History: No current tobacco, alcohol, or drug abuse Family History: Asked and noncontributory Allergies No Known Allergies Allergy (Verified 11/08/17 22:28) HOME MEDICATIONS: Home Medications Medication Instructions Recorded Lansoprazole [Prevacid -] 30 mg PO DAILY 07/26/12 Metoprolol Succinate [Toprol XL -] 50 mg PO DAILY 07/26/12 Montelukast Na [Singulair -] 10 mg PO HS 07/26/12 Lactobacillus Acidophilus 1 each PO DAILY 08/15/12 [Acidophilus] Raritan-3 Acid Ethyl Esters [Lovaza 2,000 mg PO DAILY 08/15/12 -] Ranolazine [Ranexa -] 500 mg PO BID 08/24/13 Isosorbide Mononitrate [Isosorbide 30 mg PO DAILY 11/09/17 Mononitrate ER] Enoxaparin [Lovenox -] 60 mg SQ BID #60 disp.syrin [facility] 2 11/15/17 Magnesium Oxide [Mag-Ox -] 400 mg PO BID #10 tablet [facility] 2 11/15/17 REVIEW OF SYSTEMS 10 sys ROS done and negative aside from HPI PHYSICAL EXAMINATION Vital Signs - 24 hr 06/02/18 06/02/18 06/02/18 16:30 17:44 20:08 Temperature 99.4 F 99.4 F Pulse Rate 72 93 H Pulse Rate [ 93 H Left Radial] Respiratory 16 16 Rate Blood Pressure 136/78 136/84 Blood Pressure 136/84 [Right Arm] O2 Sat by Pulse 96 96 96 Oximetry (%) 06/02/18 06/02/18 20:35 20:44 Temperature 100.4 F H Pulse Rate Pulse Rate [ Left Radial] Respiratory Rate Blood Pressure Blood Pressure 123/67 [Right Arm] O2 Sat by Pulse 96 Oximetry (%) GENERAL: Awake, alert, and fully oriented, in no acute distress. HEAD: Normal with no signs of trauma. EYES: Pupils equal, round and reactive to light, extraocular movements intact= EARS, NOSE, THROAT: Ears normal, nares patent, oropharynx clear without exudates = NECK: Normal range of motion, supple without lymphadenopathy= LUNGS: Breath sounds equal, clear to auscultation bilaterally.= HEART: Regular rate and rhythm, normal S1 and S2 without murmur, rub or gallop. ABDOMEN: Soft, nontender, not distended, normoactive bowel sounds= MUSCULOSKELETAL: Normal range of motion at all joints.= UPPER EXTREMITIES: 2+ pulses, warm, well-perfused. No cyanosis. No clubbing. No peripheral edema. LOWER EXTREMITIES: 2+ pulses, warm, well-perfused. No calf tenderness. No peripheral edema. NEUROLOGICAL: Cranial nerves II-XII intact. Normal speech. Normal gait. PSYCHIATRIC: Cooperative. Good eye contact. Appropriate mood and affect. SKIN: Warm, dry, normal turgor Laboratory Results - last 24 hr 06/02/18 06/02/18 06/02/18 06:15 06:15 06:15 WBC 4.4 RBC 3.28 L Hgb 10.0 L Hct 29.7 L MCV 90.3 MCH 30.4 MCHC 33.7 RDW 15.8 D Plt Count 113 L D MPV 9.6 Absolute Neuts (auto) 3.7 Neutrophils % 85.2 H Lymphocytes % 6.7 L D Monocytes % 7.8 Eosinophils % 0.1 D Basophils % 0.2 Nucleated RBC % 0 PT with INR INR PTT (Actin FS) VBG pH POC VBG pCO2 POC VBG pO2 Mixed VBG HCO3 Sodium Potassium Chloride Carbon Dioxide Anion Gap BUN Creatinine Creat Clearance w eGFR Random Glucose Lactic Acid Calcium Total Bilirubin AST ALT Alkaline Phosphatase Creatine Kinase 227 Creatine Kinase Index 0.4 CK-MB (CK-2) < 1.0 Troponin I < 0.02 Total Protein Albumin Lipase 63 L Urine Color Urine Appearance Urine pH Ur Specific Arnold Urine Protein Urine Glucose (UA) Urine Ketones Urine Blood Urine Nitrite Urine Bilirubin Urine Urobilinogen Ur Leukocyte Esterase Urine WBC (Auto) Urine RBC (Auto) Calcium Oxalate Crystal Hyaline Casts Urine Mucus Stool Occult Blood Influenza A (Rapid) Influenza B (Rapid) 06/02/18 06/02/18 06/02/18 06:15 18:50 20:30 WBC RBC Hgb Hct MCV MCH MCHC RDW Plt Count MPV Absolute Neuts (auto) Neutrophils % Lymphocytes % Monocytes % Eosinophils % Basophils % Nucleated RBC % PT with INR INR PTT (Actin FS) VBG pH POC VBG pCO2 POC VBG pO2 Mixed VBG HCO3 Sodium 137 Potassium 4.1 Chloride 107 Carbon Dioxide 22 Anion Gap 9 BUN 23 H Creatinine 1.4 H Creat Clearance w eGFR 47.83 Random Glucose 111 H Lactic Acid Calcium 8.0 L Total Bilirubin 0.4 AST 21 ALT 31 Alkaline Phosphatase 64 Creatine Kinase Creatine Kinase Index CK-MB (CK-2) Troponin I Total Protein 5.7 L Albumin 3.1 L Lipase Urine Color Yellow Urine Appearance Slcloudy Urine pH 5.0 Ur Specific Arnold 1.016 Urine Protein Negative Urine Glucose (UA) Negative Urine Ketones Negative Urine Blood 1+ H Urine Nitrite Negative Urine Bilirubin Negative Urine Urobilinogen Negative Ur Leukocyte Esterase Negative Urine WBC (Auto) 2 Urine RBC (Auto) 10 Calcium Oxalate Crystal Rare Hyaline Casts 1 Urine Mucus Rare Stool Occult Blood Influenza A (Rapid) Positive A Influenza B (Rapid) Negative 06/02/18 06/02/18 06/02/18 20:30 20:30 20:34 WBC RBC Hgb Hct MCV MCH MCHC RDW Plt Count MPV Absolute Neuts (auto) Neutrophils % Lymphocytes % Monocytes % Eosinophils % Basophils % Nucleated RBC % PT with INR 33.60 H INR 2.82 H PTT (Actin FS) 38.2 H VBG pH 7.37 POC VBG pCO2 38.8 D POC VBG pO2 29.0 D Mixed VBG HCO3 21.9 Sodium Potassium Chloride Carbon Dioxide Anion Gap BUN Creatinine Creat Clearance w eGFR Random Glucose Lactic Acid 1.6 Calcium Total Bilirubin AST ALT Alkaline Phosphatase Creatine Kinase Creatine Kinase Index CK-MB (CK-2) Troponin I Total Protein Albumin Lipase Urine Color Urine Appearance Urine pH Ur Specific Arnold Urine Protein Urine Glucose (UA) Urine Ketones Urine Blood Urine Nitrite Urine Bilirubin Urine Urobilinogen Ur Leukocyte Esterase Urine WBC (Auto) Urine RBC (Auto) Calcium Oxalate Crystal Hyaline Casts Urine Mucus Stool Occult Blood Influenza A (Rapid) Influenza B (Rapid) 06/02/18 21:00 WBC RBC Hgb Hct MCV MCH MCHC RDW Plt Count MPV Absolute Neuts (auto) Neutrophils % Lymphocytes % Monocytes % Eosinophils % Basophils % Nucleated RBC % PT with INR INR PTT (Actin FS) VBG pH POC VBG pCO2 POC VBG pO2 Mixed VBG HCO3 Sodium Potassium Chloride Carbon Dioxide Anion Gap BUN Creatinine Creat Clearance w eGFR Random Glucose Lactic Acid Calcium Total Bilirubin AST ALT Alkaline Phosphatase Creatine Kinase Creatine Kinase Index CK-MB (CK-2) Troponin I Total Protein Albumin Lipase Urine Color Urine Appearance Urine pH Ur Specific Arnold Urine Protein Urine Glucose (UA) Urine Ketones Urine Blood Urine Nitrite Urine Bilirubin Urine Urobilinogen Ur Leukocyte Esterase Urine WBC (Auto) Urine RBC (Auto) Calcium Oxalate Crystal Hyaline Casts Urine Mucus Stool Occult Blood Negative Influenza A (Rapid) Influenza B (Rapid) CXR without acute pathology ASSESSMENT/PLAN: Patient presents to the ER with cough and malaise (has had cough with some SOB for a month but has been acutely worse) and is found to be flu positive; due to desaturating to 91% on RA he will be admitted to the medicine service. Found to have slight KATI. 1) Acute Influenza -Though the timeframe is unclear due to the chronicity of his sx, I will presumptively give tamiflu -PRN albuterol -Continue home meds -Consider consulting Dr. Sanders in AM for any further recs if he continues to be in the low 90s on RA in the AM -Checking BNP but please note it may be falsely elevated due to the relatively elevated Cr 2) Metastatic Pancreatic CA -Appt at [place] in the coming week; no issues. Hx biliary stent 3) Hx. HTN -Continue home meds; no changes 4) Hx b/l PE -Continue lovenox; sufficient for DVT px 5) GERD -Continue PPI 6) Hx Colon CA s/p Collectomy -Noted 7) KATI -Likely prerenal; avoid nephrotoxins and empirically hydrate the patient. If worsens will go ahead and consult nephro. FU BMP and UOP. FENA -PO fluids -PRN replete -Resume home diet -As tolerated
[2018-06-03] MEDS: SODIUM CHLORIDE 1,000 ML IV SCH (00:24)
[2018-06-03] MEDS ORDERED: ALBUTEROL SO4 0.083% IH SOL 2.5 MG/3 ML VIAL.NEB. NEB PRN (01:00)
[2018-06-03 08:19] LABS: HEMATOCRIT 26.6 % (35.4-49); MCH 30.5 pg (25.7-33.7); MCHC 33.9 g/dl (32.0-35.9); MEAN CELL VOLUME 90.1 fl (80-96); MEAN PLT VOLUME 10.1 fl (7.5-11.1); PLATELET COUNT 85 K/MM3 (134-434); RBC 2.95 M/mm3 (4.00-5.60); WHITE BLOOD COUNT 2.5 K/mm3 (4.0-10.0)
[2018-06-03 09:10] LABS: ALBUMIN 2.8 g/dl (3.4-5.0); ALK PHOS 57 U/L (45-117); ANION GAP 9 MMOL/L (8-16); BILIRUBIN,TOTAL 0.4 mg/dL (0.2-1); BLOOD UREA NITROGEN 25 mg/dL (7-18); CALCIUM 7.9 mg/dL (8.5-10.1); CHLORIDE 109 mmol/L (98-107); CO2 23 mmol/L (21-32); CREATININE 1.4 mg/dL (0.55-1.3); GLUCOSE,RANDOM 90 mg/dL (74-106); MAGNESIUM 1.8 mg/dL (1.8-2.4); POTASSIUM 3.8 mmol/L (3.5-5.1); SGOT/AST 19 U/L (15-37); SGPT/ALT 27 U/L (13-61); SODIUM 141 mmol/L (136-145); TOT PROT 5.2 g/dl (6.4-8.2)
[2018-06-03] MEDS ORDERED: ENOXAPARIN NA (PORCINE) 60 MG/0.6 ML DISP.SYRIN SQ SCH (10:00)
[2018-06-03] MEDS ORDERED: OSELTAMIVIR PHOSPHATE 75 MG CAPSULE PO SCH ×2 (10:00→23:00)
--- NOTE | 2018-06-03 11:09 | PN ---
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 Mast), and hx biliary stenting. He presents today for a CC of Cough with some mild SOB that has been going on for about a month but has been worse for the past week, and in particular several days. He was at his PCP office earlier int he day and noted sx of generalized body ache, fatugue, and non-productive cough for several days. He was thus sent to the ER for further treatment and monitoring. In the ER he was found to be flu positive and was started on tamiflu. Due to him being found at 91% on RA decision was made to admit - Current Medication List Current Medications: Active Medications Albuterol Sulfate (Ventolin 0.083% Nebulizer Soln -) 1 amp NEB Q4H PRN PRN Reason: SHORT OF BREATH/WHEEZING Enoxaparin Sodium (Lovenox -) 60 mg SQ BID [facility] Sodium Chloride (Normal Saline -) 1,000 mls @ 75 mls/hr IV ASDIR [facility] Last Admin: 06/03/18 00:24 Dose: 75 mls/hr Isosorbide Mononitrate (Imdur -) 30 mg PO DAILY [facility] Lactobacillus Acidophilus (Bacid -) 1 tab PO DAILY [facility] Magnesium Oxide (Mag-Ox -) 400 mg PO BID [facility] Metoprolol Succinate (Toprol Xl -) 50 mg PO DAILY [facility] Montelukast Sodium (Singulair -) 10 mg PO HS [facility] [id number] Ethyl Esters (Lovaza -) 2 gm PO DAILY [facility] Oseltamivir Phosphate (Tamiflu -) 75 mg PO BID [facility] Stop: 06/08/18 09:59 Pantoprazole Sodium (Protonix -) 40 mg PO DAILY [facility] Ranolazine (Ranexa -) 500 mg PO BID [facility] - Objective Vital Signs: Vital Signs Temperature 98.9 F 06/03/18 06:51 Pulse Rate 75 06/03/18 06:51 Respiratory Rate 20 06/03/18 06:51 Blood Pressure 140/74 06/03/18 06:51 O2 Sat by Pulse Oximetry (%) 96 06/03/18 06:51 Cardiovascular: Yes: S1, S2 Respiratory: Yes: Rhonchi Gastrointestinal: Yes: Normal Bowel Sounds, Soft Labs: CBC, BMP 06/03/18 07:00 06/03/18 07:00 INR, PTT INR 2.82 (0.83-1.09) H 06/02/18 20:30 Problem List - Problems (1) Flu Assessment/Plan: TAMIFLU ID CONSULT Code(s): J11.1 - FLU DUE TO UNIDENTIFIED INFLUENZA VIRUS W OTH RESP MANIFEST (2) Anemia Assessment/Plan: FOLLOW LABS Code(s): D64.9 - ANEMIA, UNSPECIFIED (3) KATI (acute kidney injury) Assessment/Plan: MONITOR Code(s): N17.9 - ACUTE KIDNEY FAILURE, UNSPECIFIED (4) Hypoxia Assessment/Plan: PULM CONSULT Code(s): R09.02 - HYPOXEMIA (5) HTN (hypertension) Code(s): I10 - ESSENTIAL (PRIMARY) HYPERTENSION (6) Pancreatic cancer Assessment/Plan: FOLLOWED AT [facility] Code(s): C25.9 - MALIGNANT NEOPLASM OF PANCREAS, UNSPECIFIED
[2018-06-03] MEDS: LACTOBACILLUS ACIDOPHILUS 1 TABLET PO SCH (13:53)
[2018-06-03] MEDS: RANOLAZINE E.R. 500 MG TABLET (FP) PO SCH ×2 (13:54→23:19)
[2018-06-03] MEDS: PANTOPRAZOLE 40 MG TABLET (FP) PO SCH (13:54)
[2018-06-03] MEDS: OMEGA-3 ACID ETHYL ESTERS (FATTY-ACIDS) 1 GM CAPSULE (FP) PO SCH (13:55)
[2018-06-03] MEDS: ISOSORBIDE MONONITRATE 30 MG TAB.SR.24H (FP) PO SCH (13:55)
[2018-06-03] MEDS: MAGNESIUM OXIDE 400 MG TABLET (FP) PO SCH ×2 (13:55→23:19)
--- NOTE | 2018-06-03 14:41 | EKG ---
Test Reason : Blood Pressure : / mmHG Vent. Rate : 092 BPM Atrial Rate : 092 BPM P-R Int : 200 ms QRS Dur : 064 ms QT Int : 348 ms P-R-T Axes : 025 021 045 degrees QTc Int : 430 ms SINUS RHYTHM WITH PREMATURE ATRIAL COMPLEXES OTHERWISE NORMAL ECG WHEN COMPARED WITH ECG OF 08-NOV-2017 22:39, NO SIGNIFICANT CHANGE WAS FOUND Confirmed by Rakesh Jeffery MD ([id number]) on 06/03/2018 2:40:56 PM Referred By: Confirmed By:Rakesh Jeffery MD
[2018-06-03] MEDS ORDERED: MAGNESIUM OXIDE 400 MG TABLET (FP) ONE (22:22)
[2018-06-03] MEDS ORDERED: MONTELUKAST NA 10 MG TABLET ONE (22:22)
[2018-06-03] MEDS: ENOXAPARIN NA (PORCINE) 60 MG/0.6 ML DISP.SYRIN SQ SCH (23:19)
[2018-06-03] MEDS: MONTELUKAST NA 10 MG TABLET PO SCH (23:19)
[2018-06-04] MEDS: SODIUM CHLORIDE 1,000 ML IV SCH (00:06)
[2018-06-04] MEDS ORDERED: PANTOPRAZOLE 40 MG TABLET (FP) ONE (08:42)
[2018-06-04] MEDS ORDERED: ALBUTEROL SO4 2.5/IPRATROPIUM 0.5 INH SOL 3 ML VIAL.NEB. NEB ONE (08:42)
[2018-06-04] MEDS: OMEGA-3 ACID ETHYL ESTERS (FATTY-ACIDS) 1 GM CAPSULE (FP) PO SCH (09:01)
[2018-06-04] MEDS: ENOXAPARIN NA (PORCINE) 60 MG/0.6 ML DISP.SYRIN SQ SCH ×3 (09:01→22:16)
[2018-06-04] MEDS: RANOLAZINE E.R. 500 MG TABLET (FP) PO SCH ×2 (09:01→22:16)
[2018-06-04] MEDS: OSELTAMIVIR PHOSPHATE 30 MG CAPSULE PO SCH ×2 (09:01→22:17)
[2018-06-04] MEDS: MAGNESIUM OXIDE 400 MG TABLET (FP) PO SCH ×2 (09:01→22:16)
[2018-06-04] MEDS: ISOSORBIDE MONONITRATE 30 MG TAB.SR.24H (FP) PO SCH (09:01)
[2018-06-04] MEDS: PANTOPRAZOLE 40 MG TABLET (FP) PO SCH (09:01)
[2018-06-04] MEDS: LACTOBACILLUS ACIDOPHILUS 1 TABLET PO SCH (09:01)
[2018-06-04 11:29] LABS: BASO % 0.3 % (0-2.0); HEMATOCRIT 27.5 % (35.4-49); HEMOGLOBIN 9.3 GM/dL (11.7-16.9); MCH 30.4 pg (25.7-33.7); MCHC 33.8 g/dl (32.0-35.9); MEAN PLT VOLUME 9.7 fl (7.5-11.1); MONO % 5.2 % (3.8-10.2); NEUT % 89.5 % (42.8-82.8); PLATELET COUNT 86 K/MM3 (134-434); RBC 3.06 M/mm3 (4.00-5.60); RDW 15.5 % (11.9-15.9); WHITE BLOOD COUNT 6.1 K/mm3 (4.0-10.0)
[2018-06-04 12:03] LABS: ALBUMIN 2.8 g/dl (3.4-5.0); ALK PHOS 58 U/L (45-117); ANION GAP 9 MMOL/L (8-16); BILIRUBIN,TOTAL 0.4 mg/dL (0.2-1); BLOOD UREA NITROGEN 22 mg/dL (7-18); CALCIUM 7.7 mg/dL (8.5-10.1); CHLORIDE 106 mmol/L (98-107); CO2 22 mmol/L (21-32); CREATININE 1.2 mg/dL (0.55-1.3); GLUCOSE,RANDOM 115 mg/dL (74-106); POTASSIUM 3.8 mmol/L (3.5-5.1); SGOT/AST 38 U/L (15-37); SGPT/ALT 34 U/L (13-61); SODIUM 138 mmol/L (136-145); TOT PROT 5.4 g/dl (6.4-8.2)
--- NOTE | 2018-06-04 12:37 | PN ---
Progress Note, Physician - Current Medication List Current Medications: Active Medications Albuterol Sulfate (Ventolin 0.083% Nebulizer Soln -) 1 amp NEB Q4H PRN PRN Reason: SHORT OF BREATH/WHEEZING Last Admin: 06/04/18 09:02 Dose: 1 amp Enoxaparin Sodium (Lovenox -) 60 mg SQ BID [facility] Last Admin: 06/04/18 09:01 Dose: 60 mg Sodium Chloride (Normal Saline -) 1,000 mls @ 75 mls/hr IV ASDIR [facility] Last Admin: 06/04/18 00:06 Dose: 75 mls/hr Isosorbide Mononitrate (Imdur -) 30 mg PO DAILY [facility] Last Admin: 06/04/18 09:01 Dose: 30 mg Lactobacillus Acidophilus (Bacid -) 1 tab PO DAILY [facility] Last Admin: 06/04/18 09:01 Dose: 1 tab Magnesium Oxide (Mag-Ox -) 400 mg PO BID [facility] Last Admin: 06/04/18 09:01 Dose: 400 mg Metoprolol Succinate (Toprol Xl -) 50 mg PO DAILY [facility] Last Admin: 06/04/18 09:02 Dose: 50 mg Montelukast Sodium (Singulair -) 10 mg PO HS [facility] Last Admin: 06/03/18 23:19 Dose: 10 mg [id number] Ethyl Esters (Lovaza -) 2 gm PO DAILY [facility] Last Admin: 06/04/18 09:01 Dose: 2 gm Oseltamivir Phosphate (Tamiflu -) 30 mg PO BID [facility] Stop: 06/09/18 09:59 Last Admin: 06/04/18 09:01 Dose: 30 mg Pantoprazole Sodium (Protonix -) 40 mg PO DAILY [facility] Last Admin: 06/04/18 09:01 Dose: 40 mg Ranolazine (Ranexa -) 500 mg PO BID [facility] Last Admin: 06/04/18 09:01 Dose: 500 mg - Objective Vital Signs: Vital Signs Temperature 98.9 F 06/04/18 08:11 Pulse Rate 84 06/04/18 08:11 Respiratory Rate 22 H 06/04/18 08:11 Blood Pressure 163/79 06/04/18 08:11 O2 Sat by Pulse Oximetry (%) 92 L 06/04/18 09:03 Cardiovascular: Yes: S1, S2 Respiratory: Yes: On Nasal O2, Rhonchi Labs: CBC, BMP 06/04/18 11:18 06/04/18 11:18 INR, PTT INR 2.82 (0.83-1.09) H 06/02/18 20:30 Problem List - Problems (1) Flu Assessment/Plan: TAMIFLU ID CONSULT Code(s): J11.1 - FLU DUE TO UNIDENTIFIED INFLUENZA VIRUS W OTH RESP MANIFEST (2) Anemia Assessment/Plan: FOLLOW LABS Code(s): D64.9 - ANEMIA, UNSPECIFIED (3) KATI (acute kidney injury) Assessment/Plan: MONITOR Code(s): N17.9 - ACUTE KIDNEY FAILURE, UNSPECIFIED (4) Hypoxia Code(s): R09.02 - HYPOXEMIA (5) HTN (hypertension) Code(s): I10 - ESSENTIAL (PRIMARY) HYPERTENSION (6) Pancreatic cancer Assessment/Plan: FOLLOWED AT [facility] Code(s): C25.9 - MALIGNANT NEOPLASM OF PANCREAS, UNSPECIFIED
--- NOTE | 2018-06-04 16:30 | PN ---
Progress Note (short form) - Note Progress Note: PULMONARY CONSULTATION DICTATED 06/04/18 IMP DYSPNEA INFLUENZA A METASTATIC PANCREATIC CA ON CHEMOTHERAPY H/O COLON CA H/O DVT/PE H/O BILIARY STENTING ASHD HLD KATI ANEMIA THROMBOCYTOPENIA PLAN TAMIFLU O2 INHALED BRONCHODILATORS CHEST CT LOVENOX FLUIDS MONITOR LYTES,RENAL FUNCTION MONITOR H+H,PLT CT DR DEMPSEY Problem List - Problems (1) Influenza A Code(s): J10.1 - FLU DUE TO OTH IDENT INFLUENZA VIRUS W OTH RESP MANIFEST (2) Anemia Code(s): D64.9 - ANEMIA, UNSPECIFIED (3) Flu Code(s): J11.1 - FLU DUE TO UNIDENTIFIED INFLUENZA VIRUS W OTH RESP MANIFEST (4) Hypoxia Code(s): R09.02 - HYPOXEMIA (5) DVT (deep venous thrombosis) Code(s): I82.409 - ACUTE EMBOLISM AND THOMBOS UNSP DEEP VN UNSP LOWER EXTREMITY (6) HTN (hypertension) Code(s): I10 - ESSENTIAL (PRIMARY) HYPERTENSION (7) History of colon cancer Code(s): Z85.038 - PERSONAL HISTORY OF MALIGNANT NEOPLASM OF LARGE INTESTINE (8) History of pulmonary embolism Code(s): Z86.711 - PERSONAL HISTORY OF PULMONARY EMBOLISM (9) Pancreatic cancer Code(s): C25.9 - MALIGNANT NEOPLASM OF PANCREAS, UNSPECIFIED (10) Dyspnea Code(s): R06.00 - DYSPNEA, UNSPECIFIED (11) Cough Code(s): R05 - COUGH
[2018-06-04] MEDS: OSELTAMIVIR PHOSPHATE 75 MG CAPSULE PO SCH (16:33)
--- NOTE | 2018-06-04 19:45 | CONS ---
DATE OF CONSULTATION: 06/04/2018 REFERRING PHYSICIAN: Floyd Chambers MD The patient is an 88-year-old white male with a past medical history significant for colon CA, status post resection in 1990, recently diagnosed metastatic pancreatic CA, on chemotherapy, currently followed at [facility], hypertension, hyperlipidemia, ASHD, history of pulmonary embolism as well as DVT in 2013, GERD, hiatal hernia, renal stones, history of streptococcus bacteremia, history of biliary stenting, admitted to [facility] on June 02 with complaint of 2 to 3 day history of cough and mild shortness of breath for the past week. Patient denies any chest pain, nausea, vomiting, diaphoresis. Denied any fevers or chills. He did notice some generalized body aches and nonproductive cough. In the emergency room, he was noted to be influenza A positive. He was started on Tamiflu. Of note, he was then found to be mildly hypoxemic with a 91% O2 saturation on room air. The patient is a nonsmoker. He has a history of smoking greater than 60 years ago, a pack a day for about 4 or 5 years. There is no history of occupational exposures. He denies any history of COPD or asthma in the past. There is no history of recent travel. Past medical history, again, includes colon CA, status post resection, metastatic pancreatic CA, on chemo, hypertension, hyperlipidemia, ASHD, PE, DVT, was on Lovenox, currently maintained on Coumadin, GERD, hiatal hernia, renal stones, streptococcus bacteremia. REVIEW OF SYSTEMS: Positive cough, nonproductive. No fever, no chills. Positive weakness, positive mild shortness of breath with exertion. Current medications include Mag-Ox, Lovenox, Bacid, Lovaza, albuterol, Toprol, Ranexa, normal saline, Singulair, Tamiflu, Imdur, Protonix. PHYSICAL EXAMINATION: General: The patient is an elderly white male, wide awake, alert, currently in no acute distress. Vital Signs: T-max 100, currently 98.9. Respiratory rate is 22. O2 saturation is 92% on 3 L. Blood pressure is 163/79. HEENT: Normocephalic, atraumatic. Neck: Supple. Heart: Regular, S1, S2. Chest: A few rhonchi. Abdomen: Soft. Bowel sounds are positive. Extremities: No cyanosis, edema. LABORATORY DATA: WBC 6.1, hemoglobin 9.3, hematocrit 27.5, platelet count of 86,000. INR is 2.82, BUN 22, creatinine 1.2. IMPRESSION: 1. Dyspnea secondary to influenza. 2. Influenza A. 3. Metastatic pancreatic cancer, on chemotherapy. 4. History of deep vein thrombosis and pulmonary embolism, maintained on Coumadin. 5. History of colon cancer. 6. History of biliary stenting. 7. Arteriosclerotic heart disease. 8. Hyperlipidemia. 9. Acute kidney injury. 10. Anemia. 11. Thrombocytopenia. PLAN: Tamiflu, supplemental O2, inhaled bronchodilators. CT scan of the chest. Lovenox, fluids, monitor electrolytes, renal function, platelet count. LEAH DEMPSEY M.D. JUAN [id number]
[2018-06-04] MEDS: MONTELUKAST NA 10 MG TABLET PO SCH (22:16)
[2018-06-05] MEDS: SODIUM CHLORIDE 1,000 ML IV SCH ×2 (02:02→16:43)
[2018-06-05 06:50] LABS: BASO % 0.1 % (0-2.0); HEMATOCRIT 24.7 % (35.4-49); HEMOGLOBIN 8.3 GM/dL (11.7-16.9); LYMPH % 11.1 % (8-40); MCH 29.6 pg (25.7-33.7); MCHC 33.6 g/dl (32.0-35.9); MEAN CELL VOLUME 88.3 fl (80-96); MEAN PLT VOLUME 9.5 fl (7.5-11.1); MONO % 7.3 % (3.8-10.2); NEUT % 81.5 % (42.8-82.8); PLATELET COUNT 85 K/MM3 (134-434); RBC 2.79 M/mm3 (4.00-5.60); RDW 15.7 % (11.9-15.9)
[2018-06-05 07:13] LABS: ALBUMIN 2.5 g/dl (3.4-5.0); ALK PHOS 53 U/L (45-117); ANION GAP 5 MMOL/L (8-16); BILIRUBIN,TOTAL 0.4 mg/dL (0.2-1); BLOOD UREA NITROGEN 25 mg/dL (7-18); CALCIUM 7.8 mg/dL (8.5-10.1); CHLORIDE 108 mmol/L (98-107); CO2 26 mmol/L (21-32); CREATININE 1.3 mg/dL (0.55-1.3); GLUCOSE,RANDOM 102 mg/dL (74-106); POTASSIUM 3.9 mmol/L (3.5-5.1); SGOT/AST 32 U/L (15-37); SGPT/ALT 29 U/L (13-61); SODIUM 139 mmol/L (136-145); TOT PROT 5.1 g/dl (6.4-8.2)
--- NOTE | 2018-06-05 10:13 | PN ---
Progress Note (short form) - Note Progress Note: ID consult dictated imp/reccd 88 yo man on chemo for metastatic pancreatic cancer admitted with cough +iinflluenza A now on day #3 of 5 tamiflu no fevers no vomiting feels well cxray clear crcl 47 to complete 5 days in tamiflu droplet isolation Problem List - Problems (1) Influenza A Code(s): J10.1 - FLU DUE TO OTH IDENT INFLUENZA VIRUS W OTH RESP MANIFEST (2) KATI (acute kidney injury) Code(s): N17.9 - ACUTE KIDNEY FAILURE, UNSPECIFIED (3) Pancreatic cancer Code(s): C25.9 - MALIGNANT NEOPLASM OF PANCREAS, UNSPECIFIED
[2018-06-05] MEDS: LACTOBACILLUS ACIDOPHILUS 1 TABLET PO SCH (10:41)
[2018-06-05] MEDS: ISOSORBIDE MONONITRATE 30 MG TAB.SR.24H (FP) PO SCH (10:41)
[2018-06-05] MEDS: OMEGA-3 ACID ETHYL ESTERS (FATTY-ACIDS) 1 GM CAPSULE (FP) PO SCH (10:42)
[2018-06-05] MEDS: MAGNESIUM OXIDE 400 MG TABLET (FP) PO SCH ×2 (10:42→21:48)
[2018-06-05] MEDS: OSELTAMIVIR PHOSPHATE 30 MG CAPSULE PO SCH ×2 (10:43→21:48)
[2018-06-05] MEDS: PANTOPRAZOLE 40 MG TABLET (FP) PO SCH (10:43)
[2018-06-05] MEDS: ENOXAPARIN NA (PORCINE) 60 MG/0.6 ML DISP.SYRIN SQ SCH ×2 (10:43→21:47)
[2018-06-05] MEDS: RANOLAZINE E.R. 500 MG TABLET (FP) PO SCH ×2 (10:43→21:48)
--- NOTE | 2018-06-05 12:49 | PN ---
Progress Note, Physician Chief Complaint: postive flu on tamiflu day 3/5 droplet isolation - Current Medication List Current Medications: Active Medications Albuterol Sulfate (Ventolin 0.083% Nebulizer Soln -) 1 amp NEB Q4H PRN PRN Reason: SHORT OF BREATH/WHEEZING Last Admin: 06/04/18 09:02 Dose: 1 amp Enoxaparin Sodium (Lovenox -) 60 mg SQ BID [facility] Last Admin: 06/05/18 10:43 Dose: 60 mg Sodium Chloride (Normal Saline -) 1,000 mls @ 75 mls/hr IV ASDIR [facility] Last Admin: 06/05/18 02:02 Dose: 75 mls/hr Isosorbide Mononitrate (Imdur -) 30 mg PO DAILY [facility] Last Admin: 06/05/18 10:41 Dose: 30 mg Lactobacillus Acidophilus (Bacid -) 1 tab PO DAILY [facility] Last Admin: 06/05/18 10:41 Dose: 1 tab Magnesium Oxide (Mag-Ox -) 400 mg PO BID [facility] Last Admin: 06/05/18 10:42 Dose: 400 mg Metoprolol Succinate (Toprol Xl -) 50 mg PO DAILY [facility] Last Admin: 06/05/18 10:43 Dose: 50 mg Montelukast Sodium (Singulair -) 10 mg PO HS [facility] Last Admin: 06/04/18 22:16 Dose: 10 mg Lpjsi-3-Tkwa Ethyl Esters (Lovaza -) 2 gm PO DAILY [facility] Last Admin: 06/05/18 10:42 Dose: 2 gm Oseltamivir Phosphate (Tamiflu -) 30 mg PO BID [facility] Stop: 06/09/18 09:59 Last Admin: 06/05/18 10:43 Dose: 30 mg Pantoprazole Sodium (Protonix -) 40 mg PO DAILY [facility] Last Admin: 06/05/18 10:43 Dose: 40 mg Ranolazine (Ranexa -) 500 mg PO BID [facility] Last Admin: 06/05/18 10:43 Dose: 500 mg - Objective Vital Signs: Vital Signs Temperature 97.4 F L 06/05/18 10:54 Pulse Rate 82 06/05/18 10:54 Respiratory Rate 18 06/05/18 10:54 Blood Pressure 131/79 06/05/18 10:54 O2 Sat by Pulse Oximetry (%) 94 L 06/05/18 10:54 Constitutional: Yes: Calm Cardiovascular: Yes: Regular Rate and Rhythm, S1, S2 Respiratory: Yes: CTA Bilaterally Gastrointestinal: Yes: Normal Bowel Sounds, Soft Neurological: Yes: Alert, Oriented Labs: CBC, BMP 06/05/18 05:55 06/05/18 05:55 INR, PTT INR 2.82 (0.83-1.09) H 06/02/18 20:30 Problem List - Problems (1) KATI (acute kidney injury) Assessment/Plan: on ivf creatinine is improving Code(s): N17.9 - ACUTE KIDNEY FAILURE, UNSPECIFIED (2) Anemia Assessment/Plan: iron panel, tibc ferritin could be dilutional given ivf Code(s): D64.9 - ANEMIA, UNSPECIFIED (3) Influenza A Assessment/Plan: tamiflu droplet isolation day 06/27 treatment Code(s): J10.1 - FLU DUE TO OTH IDENT INFLUENZA VIRUS W OTH RESP MANIFEST (4) History of pulmonary embolism Assessment/Plan: on lovenox bid Code(s): Z86.711 - PERSONAL HISTORY OF PULMONARY EMBOLISM (5) Pancreatic cancer Assessment/Plan: chemo therapy at [place] Code(s): C25.9 - MALIGNANT NEOPLASM OF PANCREAS, UNSPECIFIED
--- NOTE | 2018-06-05 13:49 | CONS ---
DATE OF CONSULTATION: DATE OF DICTATION: 06/05/2018 REQUESTING PHYSICIAN: Floyd Chambers MD HISTORY: This is an 88-year-old man with a past medical history of metastatic pancreatic cancer. He is on chemotherapy he tells me for life. Admitted on the with cough and some mild shortness of breath. He was noted to have body ache and fatigue and was sent to the ER. He was noted to be positive for influenza. Today is now day 3 of his treatment. He was noted in the ER to be hypoxic with an O2 saturation of 91% on room air as well as an elevated creatinine of 1.4. He is currently awake and alert. He continues to have a cough, which he states he has had for a while. He is completely unclear why he is in the hospital. PAST MEDICAL HISTORY: Notable for colon cancer 1990, metastatic pancreatic cancer on treatment, hypertension, hyperlipidemia, atherosclerotic heart disease, PE, DVT, GERD, hiatal hernia. He has a history of nephrolithiasis. He has had streptococcal bacteremia in the past in October. He has a history of biliary stenting as well. He has a history of GERD and hiatal hernia. PAST SURGICAL HISTORY: Notable for cardiac surgery, colonoscopy, tonsillectomy. He has had right colon resection in 1990. He has had ESWL for renal calculi. SOCIAL HISTORY: Social alcohol. No substance use. Former smoker. Quit in 1953. He lives with his spouse. He is a retired mailman. ALLERGIES: He has no known drug allergies. CURRENT MEDICATIONS: His current medications as an outpatient include Ranexa, Lovaza, Prevacid, isosorbide, Lovenox, Singulair, Toprol XL, Mag-Oxide, and Lactobacillus. REVIEW OF SYSTEMS: He states he has some mid epigastric pain that is a chronic at the site of his cancer. He has no other complaints. He tells me he never vomits. He has no diarrhea. PHYSICAL EXAMINATION: General: He is a pleasant man in no acute distress. Vital Signs: Temperature is 98.1, T-max since admission has been 100.4, pulse 88, blood pressure 125/73, respiratory rate 20, saturating 94% on 2 L. HEENT: He is normocephalic. His eyes are anicteric. Neck: Supple. Lungs: Clear to auscultation. Heart: Regular rate and rhythm. Abdomen: Soft and nontender. Extremities: Without edema. DIAGNOSTIC DATA: Chest x-ray shows much improvement since October with clearing of the bibasilar pleural and pulmonary findings. Labs are notable on admission, white count 4.4, today is 4, hemoglobin 8.3, platelets 85,000. BUN 25, creatinine 1.3 with normal LFTs. Blood cultures are negative. Urine culture is negative. His influenza A screen is positive. In summary, this is an 88-year-old man with metastatic pancreatic cancer, acute kidney injury admitted with influenza A. He is now on day 3 of Tamiflu adjusted for his acute kidney injury. Would complete 5 days. He needs to be in droplet isolation. Appears to be clinically improving. No further recommendations at this time. LOPEZ LOPEZ M.D. [id number]
--- NOTE | 2018-06-05 13:57 | PN ---
Progress Note, Physician History of Present Illness: PULMONARY ALERT,FEELING BETTER,LESS COUGH,SOB IMPROVING - Current Medication List Current Medications: Active Medications Albuterol Sulfate (Ventolin 0.083% Nebulizer Soln -) 1 amp NEB Q4H PRN PRN Reason: SHORT OF BREATH/WHEEZING Last Admin: 06/04/18 09:02 Dose: 1 amp Enoxaparin Sodium (Lovenox -) 60 mg SQ BID [facility] Last Admin: 06/05/18 10:43 Dose: 60 mg Sodium Chloride (Normal Saline -) 1,000 mls @ 75 mls/hr IV ASDIR [facility] Last Admin: 06/05/18 02:02 Dose: 75 mls/hr Isosorbide Mononitrate (Imdur -) 30 mg PO DAILY [facility] Last Admin: 06/05/18 10:41 Dose: 30 mg Lactobacillus Acidophilus (Bacid -) 1 tab PO DAILY [facility] Last Admin: 06/05/18 10:41 Dose: 1 tab Magnesium Oxide (Mag-Ox -) 400 mg PO BID [facility] Last Admin: 06/05/18 10:42 Dose: 400 mg Metoprolol Succinate (Toprol Xl -) 50 mg PO DAILY [facility] Last Admin: 06/05/18 10:43 Dose: 50 mg Montelukast Sodium (Singulair -) 10 mg PO HS [facility] Last Admin: 06/04/18 22:16 Dose: 10 mg Ryquu-3-Xdkq Ethyl Esters (Lovaza -) 2 gm PO DAILY [facility] Last Admin: 06/05/18 10:42 Dose: 2 gm Oseltamivir Phosphate (Tamiflu -) 30 mg PO BID [facility] Stop: 06/09/18 09:59 Last Admin: 06/05/18 10:43 Dose: 30 mg Pantoprazole Sodium (Protonix -) 40 mg PO DAILY [facility] Last Admin: 06/05/18 10:43 Dose: 40 mg Ranolazine (Ranexa -) 500 mg PO BID [facility] Last Admin: 06/05/18 10:43 Dose: 500 mg - Objective Vital Signs: Vital Signs Temperature 97.4 F L 06/05/18 10:54 Pulse Rate 82 06/05/18 10:54 Respiratory Rate 18 06/05/18 10:54 Blood Pressure 131/79 06/05/18 10:54 O2 Sat by Pulse Oximetry (%) 94 L 06/05/18 10:54 Constitutional: Yes: Well Nourished, Calm Eyes: Yes: WNL HENT: Yes: WNL Neck: Yes: WNL Cardiovascular: Yes: Regular Rate and Rhythm, S1, S2 Respiratory: Yes: Rhonchi (FEW RHONCHI) Gastrointestinal: Yes: Normal Bowel Sounds, Soft Extremities: Yes: WNL Edema: No Labs: CBC, BMP 06/05/18 05:55 06/05/18 05:55 INR, PTT INR 2.82 (0.83-1.09) H 06/02/18 20:30 Problem List - Problems (1) Influenza A Code(s): J10.1 - FLU DUE TO OTH IDENT INFLUENZA VIRUS W OTH RESP MANIFEST (2) Anemia Code(s): D64.9 - ANEMIA, UNSPECIFIED (3) Flu Code(s): J11.1 - FLU DUE TO UNIDENTIFIED INFLUENZA VIRUS W OTH RESP MANIFEST (4) Hypoxia Code(s): R09.02 - HYPOXEMIA (5) DVT (deep venous thrombosis) Code(s): I82.409 - ACUTE EMBOLISM AND THOMBOS UNSP DEEP VN UNSP LOWER EXTREMITY (6) HTN (hypertension) Code(s): I10 - ESSENTIAL (PRIMARY) HYPERTENSION (7) History of colon cancer Code(s): Z85.038 - PERSONAL HISTORY OF MALIGNANT NEOPLASM OF LARGE INTESTINE (8) History of pulmonary embolism Code(s): Z86.711 - PERSONAL HISTORY OF PULMONARY EMBOLISM (9) Pancreatic cancer Code(s): C25.9 - MALIGNANT NEOPLASM OF PANCREAS, UNSPECIFIED (10) Dyspnea Code(s): R06.00 - DYSPNEA, UNSPECIFIED (11) Cough Code(s): R05 - COUGH Assessment/Plan IMP DYSPNEA,COUGH IMPROVING INFLUENZA A METASTATIC PANCREATIC CA ON CHEMOTHERAPY H/O COLON CA H/O DVT/PE H/O BILIARY STENTING ASHD HLD KATI ANEMIA THROMBOCYTOPENIA PLAN TAMIFLU O2 INHALED BRONCHODILATORS LOVENOX FLUIDS MONITOR LYTES,RENAL FUNCTION MONITOR H+H,PLT CT DR DEMPSEY Problem List - Problems (1) Influenza A Code(s): J10.1 - FLU DUE TO OTH IDENT INFLUENZA VIRUS W OTH RESP MANIFEST (2) Anemia Code(s): D64.9 - ANEMIA, UNSPECIFIED (3) Flu Code(s): J11.1 - FLU DUE TO UNIDENTIFIED INFLUENZA VIRUS W OTH RESP MANIFEST (4) Hypoxia Code(s): R09.02 - HYPOXEMIA (5) DVT (deep venous thrombosis) Code(s): I82.409 - ACUTE EMBOLISM AND THOMBOS UNSP DEEP VN UNSP LOWER EXTREMITY (6) HTN (hypertension) Code(s): I10 - ESSENTIAL (PRIMARY) HYPERTENSION (7) History of colon cancer Code(s): Z85.038 - PERSONAL HISTORY OF MALIGNANT NEOPLASM OF LARGE INTESTINE (8) History of pulmonary embolism Code(s): Z86.711 - PERSONAL HISTORY OF PULMONARY EMBOLISM (9) Pancreatic cancer Code(s): C25.9 - MALIGNANT NEOPLASM OF PANCREAS, UNSPECIFIED (10) Dyspnea Code(s): R06.00 - DYSPNEA, UNSPECIFIED (11) Cough Code(s): R05 - COUGH
[2018-06-05] MEDS: MONTELUKAST NA 10 MG TABLET PO SCH (21:48)
[2018-06-06] MEDS ORDERED: PT OWN MED DRAWER 7, Y5N ONE ×2 (02:12→09:15)
[2018-06-06 07:31] LABS: BASO % 0.3 % (0-2.0); EOS % 0.4 % (0-4.5); HEMATOCRIT 25.2 % (35.4-49); HEMOGLOBIN 8.6 GM/dL (11.7-16.9); LYMPH % 22.6 % (8-40); MCH 29.8 pg (25.7-33.7); MCHC 34.1 g/dl (32.0-35.9); MEAN CELL VOLUME 87.5 fl (80-96); MEAN PLT VOLUME 9.8 fl (7.5-11.1); MONO % 9.6 % (3.8-10.2); NEUT % 67.1 % (42.8-82.8); PLATELET COUNT 94 K/MM3 (134-434); RBC 2.88 M/mm3 (4.00-5.60); RDW 15.7 % (11.9-15.9); WHITE BLOOD COUNT 2.4 K/mm3 (4.0-10.0)
[2018-06-06 08:44] LABS: ALBUMIN 2.7 g/dl (3.4-5.0); ALK PHOS 52 U/L (45-117); ANION GAP 6 MMOL/L (8-16); BILIRUBIN,TOTAL 0.4 mg/dL (0.2-1); BLOOD UREA NITROGEN 22 mg/dL (7-18); CALCIUM 7.8 mg/dL (8.5-10.1); CHLORIDE 108 mmol/L (98-107); CO2 26 mmol/L (21-32); CREATININE 1.1 mg/dL (0.55-1.3); GLUCOSE,RANDOM 94 mg/dL (74-106); MAGNESIUM 1.9 mg/dL (1.8-2.4); POTASSIUM 3.8 mmol/L (3.5-5.1); SGOT/AST 32 U/L (15-37); SGPT/ALT 29 U/L (13-61); SODIUM 140 mmol/L (136-145); TOT PROT 5.4 g/dl (6.4-8.2)
--- NOTE | 2018-06-06 08:46 | PN ---
Progress Note, Physician Chief Complaint: AWAKE ALERT C/O CONSTIPATION - Current Medication List Current Medications: Active Medications Albuterol Sulfate (Ventolin 0.083% Nebulizer Soln -) 1 amp NEB Q4H PRN PRN Reason: SHORT OF BREATH/WHEEZING Last Admin: 06/04/18 09:02 Dose: 1 amp Enoxaparin Sodium (Lovenox -) 60 mg SQ BID [facility] Last Admin: 06/05/18 21:47 Dose: 60 mg Sodium Chloride (Normal Saline -) 1,000 mls @ 75 mls/hr IV ASDIR [facility] Last Admin: 06/05/18 16:43 Dose: 75 mls/hr Isosorbide Mononitrate (Imdur -) 30 mg PO DAILY [facility] Last Admin: 06/05/18 10:41 Dose: 30 mg Lactobacillus Acidophilus (Bacid -) 1 tab PO DAILY [facility] Last Admin: 06/05/18 10:41 Dose: 1 tab Magnesium Oxide (Mag-Ox -) 400 mg PO BID [facility] Last Admin: 06/05/18 21:48 Dose: 400 mg Metoprolol Succinate (Toprol Xl -) 50 mg PO DAILY [facility] Last Admin: 06/05/18 10:43 Dose: 50 mg Montelukast Sodium (Singulair -) 10 mg PO HS [facility] Last Admin: 06/05/18 21:48 Dose: 10 mg Ujstr-5-Osqv Ethyl Esters (Lovaza -) 2 gm PO DAILY [facility] Last Admin: 06/05/18 10:42 Dose: 2 gm Oseltamivir Phosphate (Tamiflu -) 30 mg PO BID [facility] Stop: 06/09/18 09:59 Last Admin: 06/05/18 21:48 Dose: 30 mg Pantoprazole Sodium (Protonix -) 40 mg PO DAILY [facility] Last Admin: 06/05/18 10:43 Dose: 40 mg Ranolazine (Ranexa -) 500 mg PO BID [facility] Last Admin: 06/05/18 21:48 Dose: 500 mg - Objective Vital Signs: Vital Signs Temperature 97.8 F 06/06/18 06:00 Pulse Rate 68 06/06/18 06:00 Respiratory Rate 20 06/06/18 06:00 Blood Pressure 134/69 06/06/18 06:00 O2 Sat by Pulse Oximetry (%) 94 L 06/06/18 05:00 Constitutional: Yes: Mild Distress Eyes: Yes: WNL HENT: Yes: WNL Neck: Yes: WNL Cardiovascular: Yes: Regular Rate and Rhythm Respiratory: Yes: On Nasal O2, Rhonchi Gastrointestinal: Yes: Soft Genitourinary: Yes: WNL Musculoskeletal: Yes: Muscle Weakness Edema: No Labs: CBC, BMP 06/06/18 06:30 06/06/18 06:30 INR, PTT INR 2.82 (0.83-1.09) H 06/02/18 20:30 Problem List - Problems (1) Toxic metabolic encephalopathy Code(s): G92 - TOXIC ENCEPHALOPATHY (2) Anemia Code(s): D64.9 - ANEMIA, UNSPECIFIED (3) Cough Code(s): R05 - COUGH (4) Dyspnea Code(s): R06.00 - DYSPNEA, UNSPECIFIED (5) Flu Code(s): J11.1 - FLU DUE TO UNIDENTIFIED INFLUENZA VIRUS W OTH RESP MANIFEST (6) Hypoxia Code(s): R09.02 - HYPOXEMIA (7) Influenza A Code(s): J10.1 - FLU DUE TO OTH IDENT INFLUENZA VIRUS W OTH RESP MANIFEST (8) Sepsis Code(s): A41.9 - SEPSIS, UNSPECIFIED ORGANISM Qualifiers: Sepsis type: sepsis due to unspecified organism Qualified Code(s): A41.9 - Sepsis, unspecified organism (9) Fever Code(s): R50.9 - FEVER, UNSPECIFIED (10) History of colon cancer Code(s): Z85.038 - PERSONAL HISTORY OF MALIGNANT NEOPLASM OF LARGE INTESTINE (11) History of pulmonary embolism Code(s): Z86.711 - PERSONAL HISTORY OF PULMONARY EMBOLISM (12) Pancreatic cancer Code(s): C25.9 - MALIGNANT NEOPLASM OF PANCREAS, UNSPECIFIED Assessment/Plan TAMIFLU ISOLATION ROOM RESPIRATORY SUPPORT MIRALAX AND MOM NOW WHY IS INR HIGH?? CANCER? ON LOVENOX SQ STOP AC
[2018-06-06] MEDS ORDERED: MAGNESIUM HYDROX 2400MG/30ML ORAL SUSPENSION 30 ML CUP PO PRN (09:07)
[2018-06-06] MEDS: LACTOBACILLUS ACIDOPHILUS 1 TABLET PO SCH (09:17)
[2018-06-06] MEDS: OMEGA-3 ACID ETHYL ESTERS (FATTY-ACIDS) 1 GM CAPSULE (FP) PO SCH (09:18)
[2018-06-06] MEDS: ISOSORBIDE MONONITRATE 30 MG TAB.SR.24H (FP) PO SCH (09:18)
[2018-06-06] MEDS: MAGNESIUM OXIDE 400 MG TABLET (FP) PO SCH ×2 (09:18→22:48)
[2018-06-06] MEDS: POLYETHYLENE GLYCOL 3350 119 GM BTL PO SCH (09:19)
[2018-06-06] MEDS: RANOLAZINE E.R. 500 MG TABLET (FP) PO SCH ×2 (09:20→22:50)
[2018-06-06] MEDS: PANTOPRAZOLE 40 MG TABLET (FP) PO SCH (09:20)
[2018-06-06] MEDS: OSELTAMIVIR PHOSPHATE 30 MG CAPSULE PO SCH ×2 (09:21→22:51)
[2018-06-06] MEDS: ENOXAPARIN NA (PORCINE) 60 MG/0.6 ML DISP.SYRIN SQ SCH ×2 (09:21→22:49)
--- NOTE | 2018-06-06 09:38 | PN ---
Progress Note (short form) - Note Progress Note: PULMONARY States breathing is improving. Less nonproductive cough. No fevers recorded. Vital Signs Period Temp Pulse Resp BP Sys/Olivares Pulse Ox Last 24 Hr 97.4 F-98.1 F 68-82 18-20 124-134/69-79 94-96 Intake & Output 06/03/18 06/04/18 06/05/18 06/06/18 23:59 23:59 23:59 23:59 Intake Total 1115 1000 Balance 1115 1000 Gen: NAD at rest Heart: RRR Lung: decreased breath sounds at the bases Abd: soft, nontender Ext: no edema CBC, BMP 06/06/18 06:30 06/06/18 06:30 Active Medications Albuterol Sulfate (Ventolin 0.083% Nebulizer Soln -) 1 amp NEB Q4H PRN PRN Reason: SHORT OF BREATH/WHEEZING Last Admin: 06/04/18 09:02 Dose: 1 amp Enoxaparin Sodium (Lovenox -) 60 mg SQ BID [facility] Last Admin: 06/06/18 09:21 Dose: 60 mg Sodium Chloride (Normal Saline -) 1,000 mls @ 75 mls/hr IV ASDIR [facility] Last Admin: 06/05/18 16:43 Dose: 75 mls/hr Isosorbide Mononitrate (Imdur -) 30 mg PO DAILY [facility] Last Admin: 06/06/18 09:18 Dose: 30 mg Lactobacillus Acidophilus (Bacid -) 1 tab PO DAILY [facility] Last Admin: 06/06/18 09:17 Dose: 1 tab Magnesium Hydroxide (Milk Of Magnesia -) 30 ml PO PRN PRN PRN Reason: CONSTIPATION Magnesium Oxide (Mag-Ox -) 400 mg PO BID [facility] Last Admin: 06/06/18 09:18 Dose: 400 mg Metoprolol Succinate (Toprol Xl -) 50 mg PO DAILY [facility] Last Admin: 06/06/18 09:21 Dose: 50 mg Montelukast Sodium (Singulair -) 10 mg PO HS [facility] Last Admin: 06/05/18 21:48 Dose: 10 mg Nptoq-0-Jrqh Ethyl Esters (Lovaza -) 2 gm PO DAILY [facility] Last Admin: 06/06/18 09:18 Dose: 2 gm Oseltamivir Phosphate (Tamiflu -) 30 mg PO BID [facility] Stop: 06/09/18 09:59 Last Admin: 06/06/18 09:21 Dose: 30 mg Pantoprazole Sodium (Protonix -) 40 mg PO DAILY [facility] Last Admin: 06/06/18 09:20 Dose: 40 mg Polyethylene Glycol (Miralax (For Daily Use) -) 17 gm PO DAILY [facility] Last Admin: 06/06/18 09:19 Dose: 17 gm Ranolazine (Ranexa -) 500 mg PO BID [facility] Last Admin: 06/06/18 09:20 Dose: 500 mg A/P Influenza A Metastatic Pancreatic Ca CAD h/o Colon Ca Anemia Thrombocytopenia - complete tamiflu course - inhaled bronchodilators as needed - O2 to keep Spo2 >90% - continue anticoagulation
--- NOTE | 2018-06-06 14:55 | PN ---
Progress Note (short form) - Note Progress Note: NAD still some cough chest ct not yest read but no large infiltrates to my eye Vital Signs Period Temp Pulse Resp BP Sys/Olivares Pulse Ox Last 24 Hr 97.8 F-98.9 F 63-78 18-20 124-144/66-79 94-96 cor-rrr lungs clear abd soft, nt ext no edema CBC, BMP 06/06/18 06:30 06/06/18 06:30 Microbiology 06/02/18 20:34 Blood - Peripheral Venous Blood Culture - Preliminary NO GROWTH OBTAINED AFTER 72 HOURS, INCUBATION TO CONTINUE FOR 2 DAYS. 06/02/18 20:30 Blood - Peripheral Venous Blood Culture - Preliminary NO GROWTH OBTAINED AFTER 72 HOURS, INCUBATION TO CONTINUE FOR 2 DAYS. 06/02/18 18:50 Urine - Urine Clean Catch Urine Culture - Final NO GROWTH OBTAINED a/p influenza A day #4 of 5 tamiflu metastatic pancreatic ca crcl 47 to complete 5 days of tamiflu droplet isolation please call back if needed Problem List - Problems (1) Influenza A Code(s): J10.1 - FLU DUE TO OTH IDENT INFLUENZA VIRUS W OTH RESP MANIFEST (2) KATI (acute kidney injury) Code(s): N17.9 - ACUTE KIDNEY FAILURE, UNSPECIFIED (3) Pancreatic cancer Code(s): C25.9 - MALIGNANT NEOPLASM OF PANCREAS, UNSPECIFIED
[2018-06-06] MEDS: MONTELUKAST NA 10 MG TABLET PO SCH (22:48)
[2018-06-06] MEDS: SODIUM CHLORIDE 1,000 ML IV SCH (23:02)
[2018-06-06] MEDS ORDERED: guaiFENesin 200 MG/10 ML 10 ML UNIT-DOSE CUPS PO ONE (23:42)
[2018-06-07] MEDS: guaiFENesin 600 MG TABLET.ER (FP) PO SCH ×2 (00:01→10:26)
[2018-06-07] MEDS: SODIUM CHLORIDE 1,000 ML IV SCH (00:01)
[2018-06-07 08:06] LABS: SERUM IRON SATURATION 19 % (15-55); TOTAL IRON BINDING CAPACITY 169 ug/dL (250-450); UIBC 137 ug/dL (111-343)
--- NOTE | 2018-06-07 08:48 | DS ---
Physical Examination Vital Signs: Vital Signs Temperature 97.7 F 06/07/18 06:16 Pulse Rate 64 06/07/18 06:16 Respiratory Rate 20 06/07/18 06:16 Blood Pressure 150/82 06/07/18 06:16 O2 Sat by Pulse Oximetry (%) 96 06/06/18 21:00 Findings/Remarks: COMPLETED TAMIFLU TODAY FEELING BETTER Constitutional: Yes: No Distress Cardiovascular: Yes: Regular Rate and Rhythm Respiratory: Yes: Cough Gastrointestinal: Yes: WNL Musculoskeletal: Yes: WNL Extremities: Yes: WNL Edema: No Peripheral Pulses WNL: Yes Labs: CBC, BMP 06/06/18 06:30 06/06/18 06:30 Discharge Summary Reason For Visit: ACUTE KIDNEY INJURY, SEPSIS, INFLUENZA Current Active Problems KATI (acute kidney injury) (Acute) Anemia (Acute) Cough (Acute) Dyspnea (Acute) Flu (Acute) Hypoxia (Acute) Influenza A (Acute) Sepsis (Acute) Toxic metabolic encephalopathy (Acute) Procedures: Principal: CT CHEST Hospital Course: ADMITTED WITH RESP DISTRESS +INFLUENZA, TREATED WITH TAMIFLU, NEBS, SUPPORT Condition: Guarded - Instructions Diet, Activity, Other Instructions: OVERALL PROGNOSIS OF PANCREATIC NEOPLAS NEEDS F/U WITH ONCOLOGY SEE YOUR DOCTOR IN 1-2 DAYS FOR FOR F/U Referrals: Floyd Chambers MD [Primary Care Provider] - Disposition: [facility]NS/HOME HEALTH CARE - Home Medications Comprehensive Discharge Medication List: Ambulatory Orders Lansoprazole [Prevacid -] 30 mg PO DAILY 07/26/12 Metoprolol Succinate [Toprol XL -] 50 mg PO DAILY 07/26/12 Montelukast Na [Singulair -] 10 mg PO HS 07/26/12 Lactobacillus Acidophilus [Acidophilus] 1 each PO DAILY 08/15/12 Hollister-3 Acid Ethyl Esters [Lovaza -] 2,000 mg PO DAILY 08/15/12 Ranolazine [Ranexa -] 500 mg PO BID 08/24/13 Isosorbide Mononitrate [Isosorbide Mononitrate ER] 30 mg PO DAILY 11/09/17 Enoxaparin [Lovenox -] 60 mg SQ BID #60 disp.syrin MDD 2 11/15/17 Albuterol 0.083% Nebulizer [place] [Ventolin 0.083% Nebulizer Soln -] 1 amp NEB Q4H PRN amp 06/07/18 Guaifenesin [Mucinex -] 600 mg PO BID tablet.er 06/07/18 Magnesium Hydrox 2400MG/30Ml [Milk of Magnesia -] 30 ml PO PRN PRN cup Magnesium Oxide [Mag-Ox -] 400 mg PO BID #10 tablet MDD 2 06/07/18 Polyethylene Glycol 3350 [Miralax 119 gm Btl -] 17 gm PO DAILY bottle 06/07/18
[2018-06-07] MEDS ORDERED: IRON SUCROSE INJECTION 200 MG in SODIUM CHLORIDE 90 ML IVPB ONE (09:15)
[2018-06-07] MEDS ORDERED: PT OWN MED DRAWER 7, Y5N ONE (10:17)
[2018-06-07] MEDS: ISOSORBIDE MONONITRATE 30 MG TAB.SR.24H (FP) PO SCH (10:26)
[2018-06-07] MEDS: MAGNESIUM OXIDE 400 MG TABLET (FP) PO SCH (10:26)
[2018-06-07] MEDS: LACTOBACILLUS ACIDOPHILUS 1 TABLET PO SCH (10:26)
[2018-06-07] MEDS: RANOLAZINE E.R. 500 MG TABLET (FP) PO SCH (10:26)
[2018-06-07] MEDS: PANTOPRAZOLE 40 MG TABLET (FP) PO SCH (10:26)
[2018-06-07] MEDS: OSELTAMIVIR PHOSPHATE 30 MG CAPSULE PO SCH (10:27)
[2018-06-07] MEDS: ENOXAPARIN NA (PORCINE) 60 MG/0.6 ML DISP.SYRIN SQ SCH (10:28)
[2018-06-07] MEDS: POLYETHYLENE GLYCOL 3350 119 GM BTL PO SCH (10:28)
[2018-06-07] MEDS: OMEGA-3 ACID ETHYL ESTERS (FATTY-ACIDS) 1 GM CAPSULE (FP) PO SCH (10:29)
--- NOTE | 2018-06-07 13:20 | PN ---
Progress Note, Physician History of Present Illness: PULMONARY ALERT,OOB-CHAIR,LESS COUGH,-SOB - Current Medication List Current Medications: Active Medications Albuterol Sulfate (Ventolin 0.083% Nebulizer Soln -) 1 amp NEB Q4H PRN PRN Reason: SHORT OF BREATH/WHEEZING Last Admin: 06/04/18 09:02 Dose: 1 amp Enoxaparin Sodium (Lovenox -) 60 mg SQ BID [facility] Last Admin: 06/07/18 10:28 Dose: 60 mg Guaifenesin (Mucinex -) 600 mg PO BID [facility] Last Admin: 06/07/18 10:26 Dose: 600 mg Isosorbide Mononitrate (Imdur -) 30 mg PO DAILY [facility] Last Admin: 06/07/18 10:26 Dose: 30 mg Lactobacillus Acidophilus (Bacid -) 1 tab PO DAILY [facility] Last Admin: 06/07/18 10:26 Dose: 1 tab Magnesium Hydroxide (Milk Of Magnesia -) 30 ml PO PRN PRN PRN Reason: CONSTIPATION Last Admin: 06/06/18 15:54 Dose: 30 ml Magnesium Oxide (Mag-Ox -) 400 mg PO BID [facility] Last Admin: 06/07/18 10:26 Dose: 400 mg Metoprolol Succinate (Toprol Xl -) 50 mg PO DAILY [facility] Last Admin: 06/07/18 10:26 Dose: 50 mg Montelukast Sodium (Singulair -) 10 mg PO HS [facility] Last Admin: 06/06/18 22:48 Dose: 10 mg Htkib-9-Cnom Ethyl Esters (Lovaza -) 2 gm PO DAILY [facility] Last Admin: 06/07/18 10:29 Dose: 2 gm Oseltamivir Phosphate (Tamiflu -) 30 mg PO BID [facility] Stop: 06/09/18 09:59 Last Admin: 06/07/18 10:27 Dose: 30 mg Pantoprazole Sodium (Protonix -) 40 mg PO DAILY [facility] Last Admin: 06/07/18 10:26 Dose: 40 mg Polyethylene Glycol (Miralax (For Daily Use) -) 17 gm PO DAILY [facility] Last Admin: 06/07/18 10:28 Dose: 17 gm Ranolazine (Ranexa -) 500 mg PO BID [facility] Last Admin: 06/07/18 10:26 Dose: 500 mg - Objective Vital Signs: Vital Signs Temperature 97.7 F 06/07/18 06:16 Pulse Rate 64 06/07/18 06:16 Respiratory Rate 20 06/07/18 06:16 Blood Pressure 150/82 06/07/18 06:16 O2 Sat by Pulse Oximetry (%) 96 06/06/18 21:00 Constitutional: Yes: Well Nourished, Calm Eyes: Yes: WNL HENT: Yes: WNL Neck: Yes: WNL Cardiovascular: Yes: Regular Rate and Rhythm, S1, S2 Respiratory: Yes: Mechanically Ventilated (FEW CRACKLES) Gastrointestinal: Yes: Normal Bowel Sounds, Soft Extremities: Yes: WNL Edema: No Labs: CBC, BMP INR, PTT Problem List - Problems (1) Influenza A Code(s): J10.1 - FLU DUE TO OTH IDENT INFLUENZA VIRUS W OTH RESP MANIFEST (2) Anemia Code(s): D64.9 - ANEMIA, UNSPECIFIED (3) Flu Code(s): J11.1 - FLU DUE TO UNIDENTIFIED INFLUENZA VIRUS W OTH RESP MANIFEST (4) Hypoxia Code(s): R09.02 - HYPOXEMIA (5) DVT (deep venous thrombosis) Code(s): I82.409 - ACUTE EMBOLISM AND THOMBOS UNSP DEEP VN UNSP LOWER EXTREMITY (6) HTN (hypertension) Code(s): I10 - ESSENTIAL (PRIMARY) HYPERTENSION (7) History of colon cancer Code(s): Z85.038 - PERSONAL HISTORY OF MALIGNANT NEOPLASM OF LARGE INTESTINE (8) History of pulmonary embolism Code(s): Z86.711 - PERSONAL HISTORY OF PULMONARY EMBOLISM (9) Pancreatic cancer Code(s): C25.9 - MALIGNANT NEOPLASM OF PANCREAS, UNSPECIFIED (10) Dyspnea Code(s): R06.00 - DYSPNEA, UNSPECIFIED (11) Cough Code(s): R05 - COUGH Assessment/Plan IMP DYSPNEA,COUGH IMPROVING INFLUENZA A METASTATIC PANCREATIC CA ON CHEMOTHERAPY H/O COLON CA H/O DVT/PE H/O BILIARY STENTING ASHD HLD KATI ANEMIA THROMBOCYTOPENIA PLAN TAMIFLU INHALED BRONCHODILATORS DR DEMPSEY Problem List - Problems (1) Influenza A Code(s): J10.1 - FLU DUE TO OTH IDENT INFLUENZA VIRUS W OTH RESP MANIFEST (2) Anemia Code(s): D64.9 - ANEMIA, UNSPECIFIED (3) Flu Code(s): J11.1 - FLU DUE TO UNIDENTIFIED INFLUENZA VIRUS W OTH RESP MANIFEST (4) Hypoxia Code(s): R09.02 - HYPOXEMIA (5) DVT (deep venous thrombosis) Code(s): I82.409 - ACUTE EMBOLISM AND THOMBOS UNSP DEEP VN UNSP LOWER EXTREMITY (6) HTN (hypertension) Code(s): I10 - ESSENTIAL (PRIMARY) HYPERTENSION (7) History of colon cancer Code(s): Z85.038 - PERSONAL HISTORY OF MALIGNANT NEOPLASM OF LARGE INTESTINE (8) History of pulmonary embolism Code(s): Z86.711 - PERSONAL HISTORY OF PULMONARY EMBOLISM (9) Pancreatic cancer Code(s): C25.9 - MALIGNANT NEOPLASM OF PANCREAS, UNSPECIFIED (10) Dyspnea Code(s): R06.00 - DYSPNEA, UNSPECIFIED (11) Cough Code(s): R05 - COUGH
[2018-06-07 15:56] VITALS: BP 140/80; PULSE 68; TEMP 98.3
== END 2018-06-07 18:08 | disposition home health service (06) | DRG 193 ==
LOC: JER 16:23 → JERBED 21:58 → OBSVTOIN 23:57 → J8W 06-05 15:09
PROVIDERS: ADMIT Internal Medicine; ATTEND Family Medicine
DX: J09.X2 Influenza due to identified novel influenza A virus with other respiratory manifestations (principal); G93.41 Metabolic encephalopathy; N17.9 Acute kidney failure, unspecified; C78.89 Secondary malignant neoplasm of other digestive organs; D69.6 Thrombocytopenia, unspecified; R09.02 Hypoxemia; I10 Essential (primary) hypertension; Z85.038 Personal history of other malignant neoplasm of large intestine; Z90.49 Acquired absence of other specified parts of digestive tract; D64.9 Anemia, unspecified; E78.5 Hyperlipidemia, unspecified; I25.10 Atherosclerotic heart disease of native coronary artery without angina pectoris; K21.9 Gastro-esophageal reflux disease without esophagitis; Z86.718 Personal history of other venous thrombosis and embolism; Z86.711 Personal history of pulmonary embolism
CPT/HCPCS: 36415; 71045-TC-FY; 71250-TC; 80053; 81003; 81015; 82272; 82550; 82553; 82728; 82746; 82803; 83540; 83550; 83605; 83690; 83735; 83880; 84484; 85025; 85027; 85610; 85730; 87040; 87086; 87804; 93005; 93010; 97116-GP; 97161-GP; 99285-25; G0378; J0131; J1756; J7030

== ENCOUNTER 2018-10-25 14:12 | Emergency (ER) | payer OTHER ==
[2018-10-25 14:28] VITALS: BMI 22.8
--- NOTE | 2018-10-25 15:41 | PDOC ---
History of Present Illness - General Chief Complaint: Pain Stated Complaint: SENT BY PCP ABD PAIN, VOMITING Time Seen by Provider: 10/25/18 15:41 - History of Present Illness Initial Comments: 88 yo M with h/o HTN, HLD, CAD, PE/DVT 2013, GERD, hiatal hernia, kidney stones , colon CA s/p partial resection in 1990, metastatic pancreatic CA presenting with abdominal pain and "black/brown vomit." Patient states his abdominal pain is rated 5/10 and described as "burning." This pain is consistent with his pancreatic cancer pain, but has worsened over the past several days. Patient's pain is controlled with his home oxycodone which he last took around noon. He reports three episodes of black/brown vomit yesterday and four today. Patient called his primary care doctor's office and was instructed to come to the ED for further evaluation. Last bowel movement was today and was a normal formed brown stool without blood. Has had lessened po intake today due to low appetite. Had some hematuria about a week ago but his urine has since cleared. Last CT scan was last and patient was told "it looked better." No fevers, chills, chest pain, or shortness of breath. PCP: Dr. Chambers GI: Dr. Rogers Onc: Dr. Ricci (at [facility]) Past History - Past Medical History Allergies/Adverse Reactions: Allergies Allergy/AdvReac Type Severity Reaction Status Date / Time No Known Allergies Allergy Verified 10/25/18 14:28 Home Medications: Ambulatory Orders Lansoprazole [Prevacid -] 30 mg PO DAILY 07/26/12 Metoprolol Succinate [Toprol XL -] 50 mg PO DAILY 07/26/12 Montelukast Na [Singulair -] 10 mg PO HS 07/26/12 Lactobacillus Acidophilus [Acidophilus] 1 each PO DAILY 08/15/12 Madeline-3 Acid Ethyl Esters [Lovaza -] 2,000 mg PO DAILY 08/15/12 Ranolazine [Ranexa -] 500 mg PO BID 08/24/13 Isosorbide Mononitrate [Isosorbide Mononitrate ER] 30 mg PO DAILY 11/09/17 Enoxaparin [Lovenox -] 60 mg SQ BID #60 disp.syrin MDD 2 11/15/17 Albuterol 0.083% Nebulizer Nakita [Ventolin 0.083% Nebulizer Soln -] 1 amp NEB Q4H PRN amp 06/07/18 Guaifenesin [Mucinex -] 600 mg PO BID tablet.er 06/07/18 Magnesium Hydrox 2400MG/30Ml [Milk of Magnesia -] 30 ml PO PRN PRN cup Magnesium Oxide [Mag-Ox -] 400 mg PO BID #10 tablet MDD 2 06/07/18 Polyethylene Glycol 3350 [Miralax 119 gm Btl -] 17 gm PO DAILY bottle 06/07/18 Anemia: No Asthma: No Cancer: Yes (COLON CANCER remission, pancreatic ca) Cardiac Disorders: Yes (H/O PALPITATION; PULMONARY EMBOLI/DVT;ASHD) CVA: No COPD: No CHF: No Dementia: No Diabetes: No Dialysis: No GI Disorders: Yes (GERD, HIATAL HERNIA) Disorders: (NEPHROLITHIASIS S/PESWL) HTN: Yes Hypercholesterolemia: No Kidney Stones: No Liver Disease: No Psychiatric Problems: No Seizures: No Thyroid Disease: No Lung CA: No - Surgical History Abdominal Surgery: Yes (RIGHT HEMICOLECTOMY) Appendectomy: No Cardiac Surgery: No Cholecystectomy: No Gastric Stapling: No GI Surgery: No Lung Surgery: No Neurologic Surgery: No Orthopedic Surgery: No - Immunization History Immunization Up to Date: Yes - Suicide/Smoking/Psychosocial Hx Smoking Status: No Smoking History: Never smoked Have you smoked in the past 12 months: No Number of Cigarettes Smoked Daily: 0 If you are a former smoker, when did you quit?: 1953 Information on smoking cessation initiated: No Hx Alcohol Use: No Drug/Substance Use Hx: No Substance Use Type: None Hx Substance Use Treatment: No Review of Systems - Review of Systems Comments:: Constitutional: no fever, no chills HEENT: no throat pain, no dysphagia Cardiovascular: no chest pain, no palpitations Respiratory: no cough, no shortness of breath Gastrointestinal: +abdominal pain, +vomiting Genitourinary: no dysuria, no frequency Musculoskeletal: no myalgia, no arthralgia Skin: no rash, no itching Neurologic: no headache, no weakness *Physical Exam - Vital Signs Last Vital Signs Temp Pulse Resp BP Pulse Ox 98.2 F 83 19 158/106 H 96 10/25/18 14:25 07/03/19 14:25 10/25/18 14:25 10/25/18 14:25 10/25/18 14:25 - Physical Exam Comments: General: Awake, alert, and fully oriented, in no acute distress Head: No signs of trauma Eyes: EOMI, sclera anicteric ENT: Moist mucus membranes Neck: Normal ROM, supple Lungs: Lungs clear, Normal breath sounds Cardio: Regular rhythm, S1 and S2 present Abdomen: Soft, nontender. No guarding, no rebound, no masses Extremities: Normal range of motion, Distal pulses present SKIN: Warm, Dry, normal turgor Neurologic: Cranial nerves II through XII grossly intact. Normal speech Rectal: The skin is without erythema or induration. No external hemorrhoids, fissures, skin tags, warts, or discharge. Sphincter tone normal. No masses palpated on digital exam. ED Treatment Course - LABORATORY CBC & Chemistry Diagram: 10/25/18 16:18 10/25/18 16:18 Medical Decision Making - Medical Decision Making 88 yo M with h/o HTN, HLD, CAD, PE/DVT 2014, GERD, hiatal hernia, kidney stones , colon CA s/p partial resection, metastatic pancreatic CA presenting with abdominal pain and "black/brown vomit." Patient states his abdominal pain is rated 5/10 and described as "burning." This pain is consistent with his pancreatic cancer pain, but has worsened over the past several days. Patient's pain is controlled with his home oxycodone which he last took around noon. He reports three episodes of black/brown vomit yesterday and four today. Patient called his primary care doctor's office and was instructed to come to the ED for further evaluation. Last bowel movement was today and was a normal formed brown stool without blood. Has had lessened po intake today due to low appetite. Patient states his last endoscopy was more than five years ago and last colonoscopy was more than ten years ago is unsure of the results. Had some hematuria about a week ago but his urine has since cleared. Last CT scan was last and patient was told "it looked better." No fevers, chills, chest pain, or shortness of breath. PCP: Dr. Chambers GI: Dr. Rogers Onc: Dr. Ricci (at [facility]) Labs CTAP 4mg morphine, 4mg zofran, 1L NS Per chart review, An EGD in 08/10 was unremarkable. He had right colon cancer resected in 1990 and had his last colonoscopy with Dr Antonio 5 years ago. 10/25/18 16:17 CBC WBC 7.5 K/mm3 (4.0-10.0) 10/25/18 16:18 RBC 3.67 M/mm3 (4.00-5.60) L 10/25/18 16:18 Hgb 10.1 GM/dL (11.7-16.9) L 10/25/18 16:18 Hct 31.4 % (35.4-49) L D 10/25/18 16:18 MCV 85.5 fl (80-96) 10/25/18 16:18 MCH 27.4 pg (25.7-33.7) 10/25/18 16:18 MCHC 32.0 g/dl (32.0-35.9) 10/25/18 16:18 RDW 20.3 % (11.9-15.9) H 10/25/18 16:18 Plt Count 256 K/MM3 (134-434) D 10/25/18 16:18 MPV 9.1 fl (7.5-11.1) 10/25/18 16:18 Absolute Neuts (auto) 6.6 K/mm3 (1.5-8.0) 10/25/18 16:18 Neutrophils % 88.3 % (42.8-82.8) H D 10/25/18 16:18 Lymphocytes % 6.3 % (8-40) L D 10/25/18 16:18 Monocytes % 5.0 % (3.8-10.2) 10/25/18 16:18 Eosinophils % 0.1 % (0-4.5) 10/25/18 16:18 Basophils % 0.3 % (0-2.0) 10/25/18 16:18 Nucleated RBC % 0 % (0-0) 10/25/18 16:18 No leukocytosis Anemia present, but above patient's baseline CMP Sodium 139 mmol/L (136-145) 10/25/18 16:18 Potassium 4.4 mmol/L (3.5-5.1) 10/25/18 16:18 Chloride 107 mmol/L (98-107) 10/25/18 16:18 Carbon Dioxide 24 mmol/L (21-32) 10/25/18 16:18 Anion Gap 9 MMOL/L (8-16) 10/25/18 16:18 BUN 23.3 mg/dL (7-18) H 10/25/18 16:18 Creatinine 1.3 mg/dL (0.55-1.3) 10/25/18 16:18 Est GFR (CKD-EPI)AfAm 56.46 10/25/18 16:18 Est GFR (CKD-EPI)NonAf 48.72 10/25/18 16:18 Random Glucose 153 mg/dL (74-106) H 10/25/18 16:18 Calcium 8.7 mg/dL (8.5-10.1) 10/25/18 16:18 Total Bilirubin 0.5 mg/dL (0.2-1) 10/25/18 16:18 AST 18 U/L (15-37) 10/25/18 16:18 ALT 15 U/L (13-61) 10/25/18 16:18 Alkaline Phosphatase 77 U/L (45-117) 10/25/18 16:18 Total Protein 5.9 g/dl (6.4-8.2) L 10/25/18 16:18 Albumin 3.1 g/dl (3.4-5.0) L 10/25/18 16:18 Lipase 31 U/L (73-393) L 10/25/18 16:18 Elevated BUN, but at patient's baseline Cr normal FOBT negative Pending CT EKG: rate 85, sinus with PACs 10/25/18 19:10 CXR: "Single view the chest reveals an elevated right hemidiaphragm, left port with tip in SVC junction with right atrium, clear lungs, no pneumothorax and no sign of infiltrate or failure. The mediastinum is not widened. The angles are sharp. The bones and soft tissues are intact. Correlation recommended. " CTAP: "Multiplanar imaging was performed following the intravenous administration of nonionic contrast. Enteric contrast was not administered. No evidence of pneumoperitoneum. In comparison to a prior CT study of 11/09/2017 interval development of small bowel obstruction is noted. Definite transition zone is difficult to identified. A maximum dilated luminal diameter is approximately 3.9 cm. Interval development of a small amount of perihepatic and perisplenic free intraperitoneal fluid is seen. A dislodged biliary stent is seen within a right lower quadrant distal small bowel loop. This biliary stent was positioned within the common bile duct at the time of the previous exam. Mild intrahepatic and extrahepatic iliac artery tract dilatation is identified on the current exam. As on the prior study of the pancreatic head appears mildly prominent with diffuse atrophy of the remainder of the pancreas. Mild dilatation of main pancreatic duct is again noted. There is again identification of confluent lymphadenopathy adjacent to the superior mesenteric artery. 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 A 1.3 x 1 cm calculus is now seen within the right renal pelvis, previously position within a right lower pole calyx. There is resultant development of mild hydronephrosis. A nonobstructing right renal lower pole calculus is again noted. Bilateral renal cortical cysts. A right renal upper pole cortical cyst again demonstrates several punctate wall calcifications. Decreased size of several left and right hepatic lobe mass lesion is noted. The spleen, adrenal glands and left kidney demonstrate no discrete abnormality. There is no aortic aneurysm. Surgical sutures are noted along the right colon. The osseous structures demonstrate no obvious CT evidence of acute pathology or neoplastic disease. Impression: In comparison to a CT exam of 11/09/2017 interval development of a small bowel obstruction is noted to the level of the pelvis. Interval dislodgment of a biliary stent is seen with the stent currently within a right lower quadrant ileal bowel loop - ? possible contributing factor in regards to small bowel obstruction. Development of a small amount of abdominal and pelvic ascites is noted. Interval development of a 1.3 x 1 cm calculus is noted within the right renal pelvis with resultant development of mild hydronephrosis. Nonobstructing right renal lower pole calculus. Decreased size of several hepatic mass lesions is seen. Findings are again noted consistent with known pancreatic cancer. 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 Cheng discussed case with Dr. Rivera who recommends transfer to a tertiary care center given patient's complex medical history Decision made to transfer patient 10/25/18 20:45 Page sent to patient's oncologist, Dr. Rocio Ricci, at [facility] Patient amenable to transfer 10/25/18 21:11 UA sent 10/25/18 21:20 Dr. Cheng spoke with Dr. Ricci who accepted patient for transfer 10/25/18 21:30 Patient signed consent for transfer 10/25/18 21:48 UA with 3+ Blood, 1+ LE, 17 WBC 10/25/18 22:[address] Ricci request, broad spectrum antibiotics vanc/zosyn given 10/25/18 22:07 *DC/Admit/Observation/Transfer Diagnosis at time of Disposition: SBO (small bowel obstruction), Renal calculus, right Displacement of biliary stent Qualifiers: Encounter type: initial encounter Qualified Code(s): T85.520A - Displacement of bile duct prosthesis, initial encounter Pancreatic cancer Qualifiers: Pancreatic malignancy location: head of pancreas Qualified Code(s): C25.0 - Malignant neoplasm of head of pancreas - Discharge Dispostion Disposition: TRANSFER ACUTE CARE/OTHER HOSP Condition at time of disposition: Guarded - Referrals Referrals: Floyd Chambers MD [Primary Care Provider] - - Patient Instructions - Post Discharge Activity
[2018-10-25] MEDS ORDERED: SODIUM CHLORIDE 1,000 ML IV STA ×2 (16:15→20:17)
[2018-10-25] MEDS ORDERED: morphine CARPU-JECT 4 MG/1 ML DISP.SYRIN IVPUSH ONE (16:15)
[2018-10-25] MEDS ORDERED: ONDANSETRON 4 MG/2 ML VIAL IVPUSH ONE (16:15)
[2018-10-25] MEDS ORDERED: PANTOPRAZOLE SODIUM 40 MG VIAL IVPUSH ONE (16:16)
[2018-10-25] MEDS ORDERED: morphine SULFATE 4 MG/ML VIAL ONE (16:22)
[2018-10-25] MEDS ORDERED: PANTOPRAZOLE SODIUM 40 MG/100 ML BAG IVPB ONE (16:22)
[2018-10-25] MEDS ORDERED: ONDANSETRON 4 MG/2 ML VIAL ONE (16:23)
[2018-10-25 16:45] LABS: BASO % 0.3 % (0-2.0); EOS % 0.1 % (0-4.5); HEMATOCRIT 31.4 % (35.4-49); HEMOGLOBIN 10.1 GM/dL (11.7-16.9); LYMPH % 6.3 % (8-40); MCH 27.4 pg (25.7-33.7); MEAN CELL VOLUME 85.5 fl (80-96); MEAN PLT VOLUME 9.1 fl (7.5-11.1); NEUT % 88.3 % (42.8-82.8); PLATELET COUNT 256 K/MM3 (134-434); RBC 3.67 M/mm3 (4.00-5.60); RDW 20.3 % (11.9-15.9); WHITE BLOOD COUNT 7.5 K/mm3 (4.0-10.0)
--- NOTE | 2018-10-25 17:09 | PDOC ---
Documentation entered by Leonardo White SCRIBE, acting as scribe for Sol Cheng DO. Sol Cheng DO: This documentation has been prepared by the Christopher shrestha Joel, SCRIBE, under my direction and personally reviewed by me in its entirety. I confirm that the documentation accurately reflects all work, treatment, procedures, and medical decision making performed by me. Attending Attestation - Resident Resident Name: Desirae Wallis - ED Attending Attestation I have performed the following: I have examined & evaluated the patient, The case was reviewed & discussed with the resident, I agree w/resident's findings & plan, Exceptions are as noted - HPI HPI: 10/25/18 16:33 The patient is an 88 year old male with a significant PMH of metastatic pancreatic CA, colon CA, CAD, PE/DVT, ASHD, HTN, and hyperlipidemia who presents to the emergency department for intermittent epigastric pain and hematemesis over the past 2 days. The patient describes his epigastric pain as an intermittent burning sensation which has been worsening recently. He reports about 3 episodes of black-brown vomiting yesterday and 4 episodes today. He notes last receiving chemo 2 weeks ago. The patient denies chest pain, shortness of breath, headache and dizziness. Denies fever, chills, nausea, vomit, diarrhea and constipation. Denies dysuria, frequency, urgency and hematuria. Allergies: NKA Past surgical history: Right hemicolectomy Social history: Former smoker. No reported alcohol or drug use. PCP: Dr. Chambers - Physicial Exam PE: 10/25/18 16:45 GENERAL: Awake, alert, and fully oriented, in no acute distress. HEAD: No signs of trauma EYES: (+) Pale conjunctiva. PERRLA, EOMI, sclera anicteric ENT: (+) Pale mucosa. Auricles normal inspection, hearing grossly normal, nares patent, oropharynx clear without exudates. NECK: Nontender, no stepoffs, Normal ROM, supple, no lymphadenopathy, JVD, or masses LUNGS: Breath sounds equal, clear to auscultation bilaterally. No wheezes, and no crackles HEART: (+) Port-a-cath in left chest wall. Regular rate and rhythm, normal S1 and S2, no murmurs, rubs or gallops ABDOMEN: (+) Easily reducible small ventral hernia. Large midline scar from prior surgery.Soft, nontender, normoactive bowel sounds. No guarding, no rebound. No masses EXTREMITIES: Normal range of motion, no edema. No clubbing or cyanosis. No cords , erythema, or tenderness NEUROLOGICAL: Cranial nerves II through XII intact. 5/5 strength and sensation in all extremities, Normal speech, normal gait, normal cerebellar function SKIN: Warm, Dry, normal turgor, no rashes or lesions noted. - Medical Decision Making 10/25/18 16:42 I, Dr. Sol hCeng, DO, attest that this document has been prepared under my direction and personally reviewed by me in its entirety. I further attest, that it accurately reflects all work, treatment, procedures and medical decision -making performed by me. 10/25/18 16:42 a/p: 88yo male with hx of pancreatic ca currently under tx at [facility] - supposed to have chemo today, with n/v and abd pain since yesterday -brown/black vomitus -no bile -no change in bowel habit -no black tarry stool -pt appears pale, but denies lightheaded or dizziness -will send labs, inr, pt is on coumadin, ekg, cxr -will obtain ct abd/pelvis -stool for heme -will start protonix for suspected concern for UGIB -GI is Dr. Wagner and also his oncologist -PMD dr. Chambers 10/25/18 17:05 hgb stable stool for heme negative 10/25/18 17:06 bedside ultrasound shows ff in the abd, mildly dilated gb wall without stones, most likely from FF in abd and pancreatic ca 10/25/18 21:05 pt with sbo, dislodged biliary stent, stone r renal pelvis with mild hydro onc dr. wagner - call placed for poss transfer given pancreatic ca with mets and sbo, dislodged biliary stent 10/25/18 21:[address] Wagner from [facility]- agrees with transferring the [facility] to [facility] transfer her cell [phone] 10/25/18 21:39 call placed to [place] transfer center 10/25/18 21:57 pt has been accepted in transfer back to [facility] under Dr. Wagner Heart Score/ECG Review - ECG Intrepretation Comment:: 10/25/18 16:44 sinus at 85, nl axis, nl interval, pac, q waves septally which are age indeterminate, no acute st/t wave findings
[2018-10-25 17:13] LABS: ALBUMIN 3.1 g/dl (3.4-5.0); BILIRUBIN,TOTAL 0.5 mg/dL (0.2-1); BLOOD UREA NITROGEN 23.3 mg/dL (7-18); CALCIUM 8.7 mg/dL (8.5-10.1); CREATININE 1.3 mg/dL (0.55-1.3); POTASSIUM 4.4 mmol/L (3.5-5.1); TOT PROT 5.9 g/dl (6.4-8.2)
[2018-10-25 18:34] LABS: INR 1.54 (0.83-1.09); PROTHROMBIN TIME (PATIENT) 18.2 SEC (9.7-13.0)
[2018-10-25 18:36] LABS: ACTIVATED PTT 34.7 SECONDS (25.2-36.5)
[2018-10-25 21:27] LABS: EPI CELLS 1.1 /HPF (0-5/HPF); HYALINE CASTS 28 /lpf (0-8); URINE APPEARANCE TURBID; URINE BILIRUBIN NEGATIVE (NEGATIVE); URINE COLOR DK YELLOW; URINE GLUCOSE (UA) NEGATIVE (NEGATIVE); URINE KETONE NEGATIVE (NEGATIVE); URINE LEUK ESTERASE 1+ (NEGATIVE); URINE NITRITE NEGATIVE (NEGATIVE); URINE PROTEIN 2+ (NEGATIVE); URINE RBC 170 /hpf (0-4); URINE UROBILINOGEN 0.2 mg/dL (0.2-1.0); URINE WBC 17 /hpf (0-5)
[2018-10-25] MEDS ORDERED: PIPERACILLIN/TAZOB 3.375 GM 3.375 GM in DEXTROSE 5%-WATER - 50 ML IVPB ONE (22:04)
[2018-10-25] MEDS ORDERED: VANCOMYCIN 1 GM in D5W (PRE-DOCKED) 1,000 MG/250 ML IVPB ONE (22:04)
[2018-10-25] MEDS ORDERED: PIPERACILLIN/TAZOB 3.375 GM 3.375 GM/50 ML BAG IVPB ONE (22:15)
[2018-10-25 22:26] LABS: URINE BACTERIA 0.2 /hpf (NEGATIVE)
[2018-10-25 22:28] LABS: URINE CRYSTALS AMORPHOS URATES 3+ /hpf
[2018-10-25] MEDS ORDERED: VANCOMYCIN 1 GRAM (PRE-DOCKED) 1,000 MG/250 ML BAG IVPB ONE (23:24)
[2018-10-26 00:16] VITALS: BP 140/68; PULSE 69; TEMP 98.3
--- NOTE | 2018-10-26 10:16 | EKG ---
Test Reason : Blood Pressure : / mmHG Vent. Rate : 085 BPM Atrial Rate : 085 BPM P-R Int : 194 ms QRS Dur : 072 ms QT Int : 394 ms P-R-T Axes : 055 050 049 degrees QTc Int : 468 ms SINUS RHYTHM WITH PREMATURE ATRIAL COMPLEXES WHEN COMPARED WITH ECG OF 02-JUN-2018 19:05, NO SIGNIFICANT CHANGE WAS FOUND Confirmed by MAITE LARIOS MD ([id number]) on 10/26/2018 10:15:41 AM Referred By: Confirmed By:MAITE LARIOS MD
== END 2018-10-26 00:49 | disposition short-term general hospital (02) ==
LOC: JER 14:12
PROC: 3E033NZ Introduction of Analgesics, Hypnotics, Sedatives into Peripheral Vein, Percutaneous Approach (ICD-10-PCS; principal; 2018-10-25)
PROC: 3E033GC Introduction of Other Therapeutic Substance into Peripheral Vein, Percutaneous Approach (ICD-10-PCS; 2018-10-25)
PROC: 3E03329 Introduction of Other Anti-infective into Peripheral Vein, Percutaneous Approach (ICD-10-PCS; 2018-10-25)
PROC: 3E0337Z Introduction of Electrolytic and Water Balance Substance into Peripheral Vein, Percutaneous Approach (ICD-10-PCS; 2018-10-25)
DX: K56.609 Unspecified intestinal obstruction, unspecified as to partial versus complete obstruction (principal); N20.0 Calculus of kidney; C25.0 Malignant neoplasm of head of pancreas; T85.520A Displacement of bile duct prosthesis, initial encounter; I10 Essential (primary) hypertension; E78.5 Hyperlipidemia, unspecified; I25.10 Atherosclerotic heart disease of native coronary artery without angina pectoris; Z85.038 Personal history of other malignant neoplasm of large intestine
CPT/HCPCS: 36415; 71045-TC-FY; 74177-TC; 80053; 81003; 82272; 83690; 85025; 85610; 85730; 86850; 86900; 86901; 87086; 93005; 93010; 99284-25; J7030

== ENCOUNTER 2019-01-25 06:10 | Day surgery (SDC) | payer OTHER ==
[2019-01-24 16:36] VITALS: BMI 24.3
[2019-01-25] MEDS ORDERED: PROPOFOL 20 ML ONE (07:44)
[2019-01-25] MEDS ORDERED: SUCCINYLCHOLINE CHLORIDE 200 MG/10 ML SYRINGE ONE (07:44)
--- NOTE | 2019-01-25 09:03 | OP ---
Operative Note - Note: Operative Date: 01/25/19 Pre-Operative Diagnosis: Right ureteral stone Operation: Right ureteroscopy laser lithotripsy stent placement Findings: 2.5 cm right distal ureteral stone Post-Operative Diagnosis: Same as Pre-op Surgeon: Joaquin Jessica MD. Anesthesia: General Drains & Tubes with Location: DJ stent Operative Report Dictated: Yes
[2019-01-25] MEDS ORDERED: ELECTROLYTE-148 SOLN 1,000 ML IV SCH (09:15)
[2019-01-25] MEDS ORDERED: ONDANSETRON 4 MG/2 ML VIAL IVPUSH PRN (09:19)
[2019-01-25] MEDS ORDERED: LACTATED RINGERS SOLUTION 1,000 ML IV SCH (09:30)
[2019-01-25 14:11] VITALS: BP 137/87; PULSE 66; TEMP 97.9
--- NOTE | 2019-02-06 13:20 | OP ---
DATE OF OPERATION: 01/25/2019 PREOPERATIVE DIAGNOSIS: Right ureteral stone. POSTOPERATIVE DIAGNOSIS: Right ureteral stone. PROCEDURE: Right ureteroscopy, laser lithotripsy, stent placement. HISTORY: This is an 88-year-old gentleman with history of a 2.5-cm distal right ureteral stone. After discussing treatment options, the patient elected to undergo the above-stated procedure. Risks and benefits of treatment, alternatives discussed in detail, all questions were answered. BRIEF OPERATIVE NOTE: The patient was brought to the operating room, placed in supine position. Once general anesthesia was administered, the patient was transferred to dorsal lithotomy position, prepped and draped in standard sterile fashion. Intravenous antibiotics were given. At this time, a 23-Syriac cystoscope sheath was placed into the bladder under direct vision. A Sensor wire was then passed into the right ureteral orifice, fluoroscopically confirmed to pass into the right renal pelvis after multiple attempts. At this time, a 2nd wire was then passed through a dual lumen. Retrograde renal pyelogram was performed. The proximal ureter and collecting system was moderately dilated. At this time, using a semirigid ureteroscope, the stone was visualized. The holmium laser at a setting of 1 joule and 10 MHz was used to fragment the stone into multiple fragments. Due to the large size of the stone, the fragmentation took approximately 30 minutes. At this time, a 6-Syriac double-J stent was then passed into the renal pelvis, confirmed fluoroscopically. All instruments were removed after draining the bladder. Patient tolerated the procedure well, was brought to recovery room in stable and satisfactory condition. Francisca DAS/[id number]
== END 2019-01-25 13:30 | disposition home or self-care (01) ==
LOC: JASU-SURG 06:10
PROVIDERS: ATTEND Urology
PROC: 0TF68ZZ Fragmentation in Right Ureter, Via Natural or Artificial Opening Endoscopic (ICD-10-PCS; principal; 2019-01-25 07:30)
PROC: 0T768DZ Dilation of Right Ureter with Intraluminal Device, Via Natural or Artificial Opening Endoscopic (ICD-10-PCS; 2019-01-25 07:30)
DX: N20.1 Calculus of ureter (principal)
CPT/HCPCS: 76000-TC-FY; 94760

== ENCOUNTER 2019-02-20 08:24 | Day surgery (SDC) | payer OTHER ==
[2019-02-19 10:57] VITALS: BMI 26.7
[2019-02-20] MEDS ORDERED: PROPOFOL 20 ML ONE ×2 (10:32)
[2019-02-20] MEDS ORDERED: oxyCODONE HCL 5 MG TABLET PO PRN (11:05)
[2019-02-20] MEDS ORDERED: ONDANSETRON 4 MG/2 ML VIAL IVPUSH PRN (11:05)
[2019-02-20] MEDS ORDERED: LACTATED RINGERS SOLUTION 1,000 ML IV SCH (11:15)
[2019-02-20] MEDS ORDERED: ceFAZolin SODIUM 1 GM VIAL IVPB ONE (11:25)
[2019-02-20] MEDS ORDERED: ceFAZolin SODIUM 1 GM VIAL ONE (11:33)
[2019-02-20] MEDS ORDERED: SODIUM CHLORIDE 0.9% P/F 10 ML VIAL IJ ONE (11:33)
--- NOTE | 2019-02-20 12:34 | OP ---
Operative Note - Note: Operative Date: 02/20/19 Pre-Operative Diagnosis: Right ureteral calculi Operation: Right ureteroscopy laser lithotripsy stent placement Post-Operative Diagnosis: Same as Pre-op Surgeon: Joaquin Jessica MD. Anesthesiologist/HVAC SALES REPRESENTATIVE: Elvi Leon Anesthesia: General Estimated Blood Loss (mls): 2 Drains & Tubes with Location: 22 cm 6 fr DJ stent Operative Report Dictated: Yes
[2019-02-20] MEDS ORDERED: ELECTROLYTE-148 SOLN 1,000 ML IV SCH (12:45)
[2019-02-20 16:03] VITALS: BP 117/71; PULSE 63; TEMP 97.7
--- NOTE | 2019-02-21 18:10 | PATH ---
Surgical Pathology Report Patient Name: CLAUDIA PEDERSEN Med. Rec. #: [id number] /Age/Gender: 1930 (Age: 88) / M Account: [id number] Location: [facility] Taken: 02/20/2019 Received: 02/20/2019 Reported: 02/21/2019 Physicians: Joaquin Jessica M.D. Specimen(s) Received RIGHT URETER STENT Clinical History Kidney stone Final Diagnosis URETER STENT, RIGHT, EXCHANGE: URETERAL STENT. MACROSCOPIC DIAGNOSIS. Electronically Signed Maria Fernanda Cruz M.D. Gross Description Received fresh labeled "right ureteral stent," is a 33 cm in length blue-green, coiled portion of tubing, consistent with a ureteral stent. No soft tissue is present. No sections are submitted, gross only. /02/20/2019 saudi/02/20/2019
--- NOTE | 2019-02-22 09:27 | OP ---
DATE OF OPERATION: 02/20/2019 PREOPERATIVE DIAGNOSIS: Right ureteral calculus. POSTOPERATIVE DIAGNOSIS: Right ureteral calculus. PROCEDURE: Right ureteroscopy, holmium laser lithotripsy, stent replacement. HISTORY: This is a very pleasant, 88-year-old gentleman with a 25-mm right ureteral stone, initially with hydronephrosis and perinephric stranding. After discussing treatment options, patient elected to undergo the above-stated procedure. Risks and benefits of treatments were discussed in detail. The patient had had a prior ureteroscopy. However, due to the size of the stone, it needed to be in a staged procedure. BRIEF OPERATIVE NOTE: Patient brought to the operating room, placed in supine position. Once general anesthesia was administered, patient was transferred to dorsal lithotomy position, prepped and draped in standard sterile fashion. Intravenous antibiotics were given. At this time, a timeout was performed. A 23-Georgian cystoscope sheath was placed into the bladder under direct vision. The bladder was 3+ trabeculated. The stent was noted emulating from the right ureteral orifice. At this time, a 0.038 guidewire was placed into the right renal pelvis. This was confirmed fluoroscopically. Using a grasper, the stent was then removed. Using the semi-rigid ureteroscope, with a 365-micron fiber with settings of 1 joule, 10 MHz, the stone fragments were broken into 2- to 3-mm fragments. There were no larger identifiable fragments at the end of the laser procedure. The procedure took approximately 35-40 minutes. At this time, the scope was removed. A 6-Georgian 22-cm double-J stent was then placed over the guidewire and fluoroscopically confirmed to be in normal position. Francisca [id number]
== END 2019-02-20 15:05 | disposition home or self-care (01) ==
LOC: JASU-SURG 08:24
PROVIDERS: ATTEND Urology
PROC: 0TF68ZZ Fragmentation in Right Ureter, Via Natural or Artificial Opening Endoscopic (ICD-10-PCS; principal; 2019-02-20 10:30)
PROC: 0T768DZ Dilation of Right Ureter with Intraluminal Device, Via Natural or Artificial Opening Endoscopic (ICD-10-PCS; 2019-02-20 10:30)
DX: N20.1 Calculus of ureter (principal)
CPT/HCPCS: 76000-TC-FY; 88300-TC; 94760

== ENCOUNTER 2019-03-17 11:08 | Emergency (ER) | payer OTHER ==
[2019-03-17 11:27] VITALS: BMI 28.1
--- NOTE | 2019-03-17 12:40 | PDOC ---
History of Present Illness - General Chief Complaint: Abnormal Lab Results (Outside) Stated Complaint: SENT BY PCP Time Seen by Provider: 03/17/19 11:39 History Source: Patient Exam Limitations: No Limitations - History of Present Illness Initial Comments: 03/17/19 12:36 88 yo M from home, with a h/o pancreatic CA(currently receiving chemo), colon CA , HTN, PE/DVT, anemia, BIB for a blood transfusion. Pt went for chemo on Tuesday, was told that he could not get transfused because his blood count was too low. He was told to go to the ER for a transfusion. They went home and waited for Dr. Chambers (PMD) to call them back to tell them which hospital to go to. Patient has no complaints at this time. No fever/chills, no NVD, no fatigue, no dizziness, no lightheadedness, no chest pain, no SOB, no back pain, no abdominal pain, no change in appetite, no syncopal episodes Past History - Past Medical History Allergies/Adverse Reactions: Allergies Allergy/AdvReac Type Severity Reaction Status Date / Time No Known Allergies Allergy Verified 03/17/19 11:16 Home Medications: Ambulatory Orders Lansoprazole [Prevacid -] 30 mg PO DAILY 07/26/12 Metoprolol Succinate [Toprol XL -] 50 mg PO DAILY 07/26/12 Montelukast Na [Singulair -] 10 mg PO HS 07/26/12 [place]-3 Acid Ethyl Esters [Lovaza -] 2,000 mg PO DAILY 08/15/12 Ranolazine [Ranexa -] 500 mg PO BID 08/24/13 Isosorbide Mononitrate [Isosorbide Mononitrate ER] 30 mg PO DAILY 11/09/17 Amlodipine Besylate 10 mg PO DAILY 01/24/19 Rivaroxaban [Xarelto -] 20 mg PO DAILY 01/24/19 Oxycodone HCl 5 mg PO PRN 02/19/19 Anemia: No Asthma: No Cancer: Yes (COLON CANCER remission, pancreatic ca) Cardiac Disorders: Yes (H/O PALPITATION; PULMONARY EMBOLI/DVT;ASHD) CVA: No COPD: No CHF: No Dementia: No Diabetes: No Dialysis: No GI Disorders: Yes (GERD, HIATAL HERNIA) Disorders: (NEPHROLITHIASIS S/PESWL) HTN: Yes Hypercholesterolemia: No Kidney Stones: No Liver Disease: No Psychiatric Problems: No Seizures: No Thyroid Disease: No Lung CA: No - Surgical History Abdominal Surgery: Yes (RIGHT HEMICOLECTOMY) Appendectomy: No Cardiac Surgery: No Cholecystectomy: No Gastric Stapling: No GI Surgery: No Lung Surgery: No Neurologic Surgery: No Orthopedic Surgery: No - Immunization History Immunization Up to Date: Yes - Psycho Social/Smoking Cessation Hx Smoking Status: No Smoking History: Never smoked Have you smoked in the past 12 months: No Number of Cigarettes Smoked Daily: 0 If you are a former smoker, when did you quit?: 1953 Hx Alcohol Use: No Drug/Substance Use Hx: No Substance Use Type: None Hx Substance Use Treatment: No Review of Systems - Review of Systems Able to Perform ROS?: Yes Constitutional: No: Chills, Fever, Malaise, Night Sweats HEENTM: No: Eye Pain, Recent change in vision, Throat Pain Respiratory: No: Cough, Shortness of Breath Cardiac (ROS): No: Chest Pain, Palpitations, Chest Tightness ABD/GI: No: Diarrhea, Nausea, Vomiting, Abdominal cramping : No: Dysuria, Hematuria Musculoskeletal: No: Back Pain Integumentary: No: Rash Neurological: No: Headache, Numbness, Dizziness Psychiatric: No: Change in Appetite Endocrine: No: Unexplained Weight Loss *Physical Exam - Vital Signs Last Vital Signs Temp Pulse Resp BP Pulse Ox 97 F L 68 18 140/75 99 03/17/19 11:11 03/17/19 11:11 03/17/19 11:11 03/17/19 11:11 03/17/19 11:11 - Physical Exam General Appearance: Yes: Nourished. No: Apparent Distress HEENT: positive: [place], Normal Voice, Pale Conjunctivae, Other (Pale mucous membranes). negative: Scleral Icterus (R), Scleral Icterus (L) Neck: positive: Supple. negative: Decreased range of motion, Tender midline Respiratory/Chest: positive: Lungs Clear, Normal Breath Sounds. negative: Respiratory Distress, Accessory Muscle Use Cardiovascular: positive: Regular Rhythm, Regular Rate Gastrointestinal/Abdominal: positive: Normal Bowel Sounds, Soft. negative: Tender Musculoskeletal: positive: Normal Inspection. negative: CVA Tenderness, Decreased Range of Motion Extremity: positive: Normal Capillary Refill, Normal Inspection, Normal Range of Motion. negative: Tender, Pedal Edema Integumentary: positive: Normal Color, Dry. negative: Jaundice, Rash Neurologic: positive: Fully Oriented, Alert, Normal Mood/Affect ED Treatment Course - LABORATORY CBC & Chemistry Diagram: 03/17/19 12:45 Medical Decision Making - Medical Decision Making 03/17/19 12:39 88 yo M here for blood transfusion. Pt asymptomatic, currently on chemo for pancreatic CA. PMD Dr. Chambers. Will check a CBC, type and screen and transfuse as needed 03/17/19 14:44 CBC reviewed. H/H baseline. Pt asymptomatic. I spoke to Dr. Chambers's PA, Elmo Oneal, she says that Dr. Giselle hawthorne recommends 1 unit of PRBCs as requested by [place], then pt can be discharged home. 03/17/19 16:13 Change of shift, care of patient signed over to SANDY Meng who will continue treatment, reassess patient and discharge home. She will call a cab for patient to go home. Discharge - Discharge Information Problems reviewed: Yes Clinical Impression/Diagnosis: Blood transfusion, without reported diagnosis Anemia Qualifiers: Anemia type: other cause Other causes of anemia: other cause, not classified Qualified Code(s): D64.89 - Other specified anemias Condition: Stable Disposition: HOME - Follow up/Referral Referrals: Isidoro Vazquez MD [Primary Care Provider] - - Patient Discharge Instructions Additional Instructions: Please make a follow up appointment with Dr. Chambers for this week. Return for worsening/concerning symptoms. - Post Discharge Activity
[2019-03-17 13:24] LABS: BASO % 1.1 % (0-2.0); EOS % 3.4 % (0-4.5); HEMATOCRIT 26.9 % (35.4-49); HEMOGLOBIN 8.8 GM/dL (11.7-16.9); LYMPH % 24.7 % (8-40); MCH 29.2 pg (25.7-33.7); MCHC 32.9 g/dl (32.0-35.9); MEAN CELL VOLUME 88.8 fl (80-96); MEAN PLT VOLUME 9.2 fl (7.5-11.1); MONO % 15.3 % (3.8-10.2); NEUT % 55.5 % (42.8-82.8); PLATELET COUNT 245 K/MM3 (134-434); RBC 3.02 M/mm3 (4.00-5.60); RDW 18.6 % (11.9-15.9); WHITE BLOOD COUNT 2.4 K/mm3 (4.0-10.0)
--- NOTE | 2019-03-17 13:36 | PDOC ---
*Physical Exam - Vital Signs Last Vital Signs Temp Pulse Resp BP Pulse Ox 97 F L 68 18 140/75 96 03/17/19 11:11 03/17/19 11:11 03/17/19 11:11 03/17/19 11:11 03/17/19 11:16 ED Treatment Course - LABORATORY CBC & Chemistry Diagram: 03/17/19 12:45 - ADDITIONAL ORDERS Additional order review: 03/17/19 12:45 RBC 3.02 L MCV 88.8 MCHC 32.9 RDW 18.6 H MPV 9.2 Neutrophils % 55.5 D Lymphocytes % 24.7 D Monocytes % 15.3 H D Eosinophils % 3.4 D Basophils % 1.1 D Medical Decision Making - Medical Decision Making 03/17/19 13:33 Mr. Spears is an 88 yo M h/o pancreatic CA (currently receiving chemo), colon CA, HTN, PE/DVT, anemia, BIB for a blood transfusion. Pt apparently went to chemo on Tuesday and was told that he could not get his chemo because his blood count was too low. He was told to go to the ER for a transfusion. Patient has no complaints at this time. No fever/chills, no NVD, no fatigue, no dizziness, no lightheadedness, no chest pain, no SOB, no back pain, no abdominal pain, no change in appetite, no syncopal episodes Pt seen by Midlevel Provider under my direct supervision Pt interviewed and examined GENERAL: The patient is in no acute distress. LUNGS: Breath sounds equal, clear to auscultation bilaterally. No wheezes, and no crackles. HEART:Regular rate and rhythm, normal S1 and S2 without murmur, rub or gallop. ABDOMEN: Soft, nontender, normoactive bowel sounds. NEUROLOGICAL: Cranial nerves II through XII grossly intact. Normal speech. No focal neurological deficits. Ancillary studies reviewed Laboratory Tests 10/25/18 03/17/19 16:18 12:45 WBC 7.5 2.4 L Hgb 10.1 L 8.8 L Hct 31.4 L D 26.9 L Plt Count 256 D 245 I agree with plan as outlined by Midlevel Provider 03/17/19 13:37 03/17/19 13:38 03/17/19 14:[address] Chambers He states he was contacted by [facility] They would like him to get 1 unit of PRBCs and he can be discharged home 03/17/19 18:01 Transfused 1 unit Discharge home Discharge - Discharge Information Clinical Impression/Diagnosis: Anemia, Blood transfusion, without reported diagnosis Condition: Stable Disposition: HOME - Follow up/Referral Referrals: Isidoro Vazquez MD [Primary Care Provider] - - Patient Discharge Instructions Additional Instructions: Please make a follow up appointment with Dr. Chambers for this week. Return for worsening/concerning symptoms. - Post Discharge Activity
[2019-03-17 14:20] LABS: ANISOCYTOSIS 1+; MACROCYTOSIS 0; OVALOCYTE 1+; PLATELET ESTIMATE NORMAL
--- NOTE | 2019-03-17 17:47 | PDOC ---
*Physical Exam - Vital Signs Last Vital Signs Temp Pulse Resp BP Pulse Ox 97.6 F 58 L 18 136/67 94 L 03/17/19 15:00 03/17/19 15:00 03/17/19 15:00 03/17/19 15:00 03/17/19 15:00 ED Treatment Course - LABORATORY CBC & Chemistry Diagram: 03/17/19 12:45 - ADDITIONAL ORDERS Additional order review: Laboratory Results 03/17/19 12:45 Blood Type O NEGATIVE Antibody Screen Negative Crossmatch See Detail 03/17/19 12:45 RBC 3.02 L MCV 88.8 MCHC 32.9 RDW 18.6 H MPV 9.2 Neutrophils % 55.5 D Lymphocytes % 24.7 D Monocytes % 15.3 H D Eosinophils % 3.4 D Basophils % 1.1 D Medical Decision Making - Medical Decision Making 03/17/19 17:45 Patient endorsed to me to disposition after blood transfusion. Transfusion completed. Patient has no complaints, he is well-appearing, no signs of transfusion reaction Chest is clear, no wheezing Vital signs stable 03/17/19 17:46 Selected Entries 03/17/19 15:00 Temperature 97.6 F Pulse Rate [ 58 L Right] Respiratory 18 Rate Blood Pressure 136/67 [Left Arm] O2 Sat by Pulse 94 L Oximetry (%) I discussed the physical exam findings, ancillary test results and final diagnoses with the patient. I answered all of the patient's questions. The patient was satisfied with the care received and felt comfortable with the discharge plan and treatment plan. The Patient agrees to follow up with the primary care physician within 24-72 hours. Discharge - Discharge Information Problems reviewed: Yes Clinical Impression/Diagnosis: Blood transfusion, without reported diagnosis Anemia Qualifiers: Anemia type: other cause Other causes of anemia: other cause, not classified Qualified Code(s): D64.89 - Other specified anemias Condition: Stable Disposition: HOME - Follow up/Referral Referrals: Isidoro Vazquez MD [Primary Care Provider] - - Patient Discharge Instructions Additional Instructions: Please make a follow up appointment with Dr. Chambers for this week. Return for worsening/concerning symptoms. - Post Discharge Activity
[2019-03-17 18:03] VITALS: BP 151/76; PULSE 75; TEMP 97.7
== END 2019-03-17 18:28 | disposition home or self-care (01) ==
LOC: JER 11:08
PROC: 30233N1 Transfusion of Nonautologous Red Blood Cells into Peripheral Vein, Percutaneous Approach (ICD-10-PCS; principal; 2019-03-17)
DX: D64.9 Anemia, unspecified (principal); C25.9 Malignant neoplasm of pancreas, unspecified; I25.10 Atherosclerotic heart disease of native coronary artery without angina pectoris; I10 Essential (primary) hypertension; K21.9 Gastro-esophageal reflux disease without esophagitis; Z85.038 Personal history of other malignant neoplasm of large intestine; Z86.718 Personal history of other venous thrombosis and embolism; Z86.711 Personal history of pulmonary embolism; Z79.01 Long term (current) use of anticoagulants; Z87.442 Personal history of urinary calculi
CPT/HCPCS: 36415; 36430; 36511; 85025; 86850; 86900; 86901; 86922; 99284-25; P9016; P9038

== ENCOUNTER 2019-06-02 19:16 | Inpatient (IN) | payer OTHER ==
--- NOTE | 2019-06-02 19:57 | PDOC ---
History of Present Illness - General Chief Complaint: Weakness Stated Complaint: GENERALIZED WEAKNESS Time Seen by Provider: 06/02/19 19:41 Exam Limitations: Dementia - History of Present Illness Initial Comments: 06/02/19 20:03 Pt is an 89y/o male with pancreatic cancer on chemotherapy (last tx possibly 05/30), hx colon cancer, anemia, HTN, and PE/DVT who presents with 2 days of generalized weakness and decreased PO intake. He denies body aches, chest pain, shortness of breath, abdominal pain, and difficulty urinating. Pt was transfused 1 unit PRBCs in February for anemia (Hb 8.8) and reports feeling similar to what he felt then. Pt does not know what medications he takes but reports taking his medications today. Past History - Past Medical History Allergies/Adverse Reactions: Allergies Allergy/AdvReac Type Severity Reaction Status Date / Time No Known Allergies Allergy Verified 03/17/19 11:16 Home Medications: Ambulatory Orders Lansoprazole [Prevacid -] 30 mg PO DAILY 07/26/12 Metoprolol Succinate [Toprol XL -] 50 mg PO DAILY 07/26/12 Montelukast Na [Singulair -] 10 mg PO HS 07/26/12 [place]-3 Acid Ethyl Esters [Lovaza -] 2,000 mg PO DAILY 08/15/12 Ranolazine [Ranexa -] 500 mg PO BID 08/24/13 Isosorbide Mononitrate [Isosorbide Mononitrate ER] 30 mg PO DAILY 11/09/17 Amlodipine Besylate 10 mg PO DAILY 01/24/19 Rivaroxaban [Xarelto -] 20 mg PO DAILY 01/24/19 Oxycodone HCl 5 mg PO PRN 02/19/19 Anemia: No Asthma: No Cancer: Yes (COLON CANCER remission, pancreatic ca) Cardiac Disorders: Yes (H/O PALPITATION; PULMONARY EMBOLI/DVT;ASHD) CVA: No COPD: No CHF: No Dementia: No Diabetes: No Dialysis: No GI Disorders: Yes (GERD, HIATAL HERNIA) Disorders: (NEPHROLITHIASIS S/PESWL) HTN: Yes Hypercholesterolemia: No Kidney Stones: No Liver Disease: No Psychiatric Problems: No Seizures: No Thyroid Disease: No Lung CA: No - Surgical History Abdominal Surgery: Yes (RIGHT HEMICOLECTOMY) Appendectomy: No Cardiac Surgery: No Cholecystectomy: No Gastric Stapling: No GI Surgery: No Lung Surgery: No Neurologic Surgery: No Orthopedic Surgery: No - Immunization History Immunization Up to Date: Yes - Psycho Social/Smoking Cessation Hx Smoking Status: No Smoking History: Never smoked Have you smoked in the past 12 months: No Number of Cigarettes Smoked Daily: 0 If you are a former smoker, when did you quit?: 1953 Information on smoking cessation initiated: No Hx Alcohol Use: No Drug/Substance Use Hx: No Substance Use Type: None Hx Substance Use Treatment: No Review of Systems - Review of Systems Constitutional: No: Chills, Fever Respiratory: No: Shortness of Breath Cardiac (ROS): No: Chest Pain : No: Dysuria Hematologic/Lymphatic: Yes: Anemia *Physical Exam - Vital Signs Last Vital Signs Temp Pulse Resp BP Pulse Ox 98.4 F 73 17 126/65 98 06/02/19 19:30 06/02/19 19:30 06/02/19 19:30 06/02/19 19:30 06/02/19 19:30 - Physical Exam General Appearance: Yes: Nourished, Appropriately Dressed, Other (pale). No: Apparent Distress HEENT: positive: EOMI, [place] Neck: positive: Trachea midline Respiratory/Chest: positive: Lungs Clear Cardiovascular: positive: Regular Rhythm, Regular Rate, Murmur (3/6 systolic) Gastrointestinal/Abdominal: positive: Normal Bowel Sounds. negative: Tender Neurologic: positive: Alert, Normal Mood/Affect, Normal Response ED Treatment Course - LABORATORY CBC & Chemistry Diagram: 06/02/19 19:42 06/02/19 19:42 Medical Decision Making - Medical Decision Making 06/02/19 20:14 Pt is an 89y/o male with pancreatic cancer on chemotherapy (last tx possibly 05/30), hx colon cancer, anemia, HTN, and PE/DVT who presents with 2 days of generalized weakness and decreased PO intake. He denies body aches, chest pain, shortness of breath, abdominal pain, and difficulty urinating. Pt was transfused 1 unit PRBCs in February for anemia (Hb 8.8) and reports feeling similar to what he felt then. ddx: symptomatic anemia, UTI, ACS orders: CBC, CMP, cardiac profile, EKG, CXR, UA 06/02/19 20:58 Hb 8.1, no leukocytosis elevated BUN but near baseline 06/02/19 21:13 EKG @20:46 NSR HR 84, occasional PVC, QTc 441 06/02/19 21:52 UA negative except for trace blood, which is likely traumatic from straight cath Will admit pt for obs given anemia, weakness, and currently on chemotherapy Discharge - Discharge Information Problems reviewed: Yes Clinical Impression/Diagnosis: Symptomatic anemia, Generalized weakness Failure to thrive Qualifiers: Failure to thrive age range: in adult Qualified Code(s): R62.7 - Adult failure to thrive - Follow up/Referral - Patient Discharge Instructions - Post Discharge Activity
[2019-06-02 20:10] LABS: BASO % 0.3 % (0-2.0); EOS % 0.7 % (0-4.5); HEMATOCRIT 24.7 % (35.4-49); HEMOGLOBIN 8.1 GM/dL (11.7-16.9); LYMPH % 7.4 % (8-40); MCHC 32.7 g/dl (32.0-35.9); MEAN CELL VOLUME 88.6 fl (80-96); MEAN PLT VOLUME 10.5 fl (7.5-11.1); MONO % 10.4 % (3.8-10.2); NEUT % 81.2 % (42.8-82.8); PLATELET COUNT 140 K/MM3 (134-434); RBC 2.79 M/mm3 (4.00-5.60); RDW 16.3 % (11.9-15.9); WHITE BLOOD COUNT 5.8 K/mm3 (4.0-10.0)
--- NOTE | 2019-06-02 20:27 | PDOC ---
Documentation entered by Orin Godwin SCRIBE, acting as scribe for Joceline Pham DO. Joceline Pham DO: This documentation has been prepared by the Citlali shrestha Xhesika, SCRIBE, under my direction and personally reviewed by me in its entirety. I confirm that the documentation accurately reflects all work, treatment, procedures, and medical decision making performed by me. Attending Attestation - Resident Resident Name: Larisa Diaz - ED Attending Attestation I have performed the following: I have examined & evaluated the patient, The case was reviewed & discussed with the resident, I agree w/resident's findings & plan - HPI HPI: 06/02/19 19:57 The patient is an 89 year old male with a significant PMH of pancreatic CA( currently on chemo), colon CA, HTN, PE/DVT, anemia who presents to the emergency department for 2 days weakness and decreased PO intake. The patient states he endorsed similar symptoms back in February 2019 and ended up getting transfused. The patient denies chest pain, shortness of breath, headache and dizziness. Denies fever, chills, cough, nausea, vomiting, diarrhea and constipation. Allergies: NKDA PCP: Dr. Vazquez - Physicial Exam PE: 06/02/19 20:00 Agree with resident exam. - Medical Decision Making 06/02/19 20:27 89-year-old male with generalized weakness and reported decreased p.o. intake Plan for labs including troponin EKG Chest x-ray Patient states he has been transfused with similar hemoglobin in the past Unfortunately were unable to contact his oncologist/mule rider at this time because patient cannot remember the name Due to decreased p.o. intake and increasing weakness as well as recent chemotherapy patient will be held on medical service for observation 06/02/19 21:31
[2019-06-02 20:44] LABS: ALBUMIN 2.5 g/dl (3.4-5.0); ALK PHOS 106 U/L (45-117); ANION GAP 9 MMOL/L (8-16); BILIRUBIN,TOTAL 0.4 mg/dL (0.2-1); BLOOD UREA NITROGEN 21.5 mg/dL (7-18); CALCIUM 8.3 mg/dL (8.5-10.1); CHLORIDE 105 mmol/L (98-107); CO2 24 mmol/L (21-32); CREATININE 1.2 mg/dL (0.55-1.3); GLUCOSE,RANDOM 134 mg/dL (74-106); POTASSIUM 3.5 mmol/L (3.5-5.1); SGOT/AST 15 U/L (15-37); SGPT/ALT 17 U/L (13-61); SODIUM 138 mmol/L (136-145); TOT PROT 5.8 g/dl (6.4-8.2)
[2019-06-02 21:44] LABS: EPI CELLS 1.8 /HPF (0-5/HPF); HYALINE CASTS 3 /lpf (0-8); URINE APPEARANCE CLEAR; URINE BACTERIA 3.1 /hpf (NEGATIVE); URINE BILIRUBIN NEGATIVE (NEGATIVE); URINE COLOR YELLOW; URINE GLUCOSE (UA) NEGATIVE (NEGATIVE); URINE KETONE NEGATIVE (NEGATIVE); URINE LEUK ESTERASE NEGATIVE (NEGATIVE); URINE NITRITE NEGATIVE (NEGATIVE); URINE PROTEIN TRACE (NEGATIVE); URINE RBC 2 /hpf (0-4); URINE UROBILINOGEN 0.2 mg/dL (0.2-1.0); URINE WBC 2 /hpf (0-5)
[2019-06-02] MEDS: SODIUM CHLORIDE 1,000 ML IV SCH (21:55)
--- NOTE | 2019-06-02 21:58 | HP ---
Admitting History and Physical - Primary Care Physician PCP: Isidoro Vazquez I - Admission Chief Complaint: Generalized Weakness, Decreased Appetite History of Present Illness: This is a 89 y/o man with a significant medical history of Pancreatic Cancer ( on chemotherapy, last tx possibly 05/30/19), Colon Ca (s/p R- Hemicolectomy), Anemia, HTN, PE/DVT( on Xarelto). Who presents to the ED with generalized weakness and decreased PO intake x 2 days. Patient denies fever, chills,cough, SOB, CP, palpitations, N/V/D, constipation, dysuria. Pt was transfused 1 unit PRBCs in February for anemia (Hb 8.8) and reports feeling similar to what he felt then. Patient does not know what medications he takes but reports taking his medications today. History Source: Patient, Medical Record Limitations to Obtaining History: Poor Historian - Past Medical History Cardiovascular: Yes: CAD, HTN, Hyperlipdemia Pulmonary: Yes: Pulmonary Embolus (associated with DVT) Gastrointestinal: Yes: Cancer (Pancreatic cancr dx'ed 08/10, Right colon cancer resected 1990) Renal/: Yes: BPH, Renal Calculi (s/p ESWL) Heme/Onc: Yes: Current Chemotherapy Musculoskeletal: Yes: Osteoarthritis - Past Surgical History Past Surgical History: Yes: Cataract Removal (bilateral), Colonoscopy, Tonsillectomy (surgical excision of right renal stones), Upper Endoscopy Additional Past Surgical History: Right Hemicolectomy - Smoking History Smoking history: Former smoker Have you smoked in the past 12 months: No Aproximately how many cigarettes per day: 0 If you are a former smoker, when did you quit?: 1953 - Alcohol/Substance Use Hx Alcohol Use: No History of Substance Use: reports: None - Social History Usual Living Arrangement: Yes: With Spouse ADL: Independent Occupation: retired mailman History of Recent Travel: No Home Medications - Allergies Allergies/Adverse Reactions: Allergies Allergy/AdvReac Type Severity Reaction Status Date / Time No Known Allergies Allergy Verified 03/17/19 11:16 - Home Medications Home Medications: Ambulatory Orders Lansoprazole [Prevacid -] 30 mg PO BID 07/26/12 Metoprolol Succinate [Toprol XL -] 50 mg PO DAILY 07/26/12 Montelukast Na [Singulair -] 10 mg PO HS 07/26/12 Albert-3 Acid Ethyl Esters [Lovaza -] 2,000 mg PO DAILY 08/15/12 Isosorbide Mononitrate [Isosorbide Mononitrate ER] 60 mg PO DAILY 11/09/17 Amlodipine Besylate 10 mg PO DAILY 01/24/19 Rivaroxaban [Xarelto -] 20 mg PO DAILY 01/24/19 Oxycodone HCl 5 mg PO PRN 02/19/19 Ferrous Sulfate [Iron] 325 mg PO BID 06/03/19 Furosemide [Lasix] 20 mg PO ONCE 06/03/19 Family Medical History Family History: Unable to Obtain Review of Systems Unable to obtain ROS, reason: Clinical Condition - Review of Systems Constitutional: reports: Loss of Appetite, Weakness Eyes: reports: No Symptoms HENT: reports: No Symptoms Neck: reports: No Symptoms Cardiovascular: reports: No Symptoms Respiratory: reports: No Symptoms Gastrointestinal: reports: No Symptoms Genitourinary: reports: No Symptoms Breasts: reports: No Symptoms Reported Musculoskeletal: reports: No Symptoms Integumentary: reports: No Symptoms Neurological: reports: Weakness Endocrine: reports: No Symptoms Hematology/Lymphatic: reports: No Symptoms Psychiatric: reports: No Symptoms Physical Examination Vital Signs: Vital Signs Temperature 98.4 F 06/02/19 19:30 Pulse Rate 73 06/02/19 19:30 Respiratory Rate 17 06/02/19 19:30 Blood Pressure 126/65 06/02/19 19:30 O2 Sat by Pulse Oximetry (%) 98 06/02/19 19:30 Constitutional: Yes: No Distress, Calm Eyes: Yes: WNL, Conjunctiva Clear, EOM Intact, PERRL HENT: Yes: Atraumatic, Normocephalic, Other (dry mucous membranes) Neck: Yes: WNL, Supple, Trachea Midline Cardiovascular: Yes: Regular Rate and Rhythm, S1, S2 Respiratory: Yes: WNL, Regular, CTA Bilaterally Gastrointestinal: Yes: Soft, Hypoactive Bowel Sounds. No: Tenderness, Tenderness, Epigastrium ...Rectal Exam: Yes: Deferred Renal/: Yes: WNL Breast(s): Yes: WNL Musculoskeletal: Yes: WNL Extremities: Yes: WNL Edema: No Peripheral Pulses WNL: Yes Neurological: Yes: Alert, Confusion, Cran Nerves II-XII Intact ...Motor Strength: WNL Psychiatric: Yes: Alert Labs: CBC, BMP 06/02/19 19:42 06/02/19 19:42 Laboratory Results - last 24 hr 06/02/19 06/02/19 06/02/19 19:42 19:42 21:10 WBC 5.8 RBC 2.79 L Hgb 8.1 L Hct 24.7 L MCV 88.6 MCH 29.0 MCHC 32.7 RDW 16.3 H Plt Count 140 D MPV 10.5 D Absolute Neuts (auto) 4.7 Neutrophils % 81.2 D Lymphocytes % 7.4 L D Monocytes % 10.4 H Eosinophils % 0.7 Basophils % 0.3 Nucleated RBC % 0 Sodium 138 Potassium 3.5 Chloride 105 Carbon Dioxide 24 Anion Gap 9 BUN 21.5 H Creatinine 1.2 Est GFR (CKD-EPI)AfAm 61.76 Est GFR (CKD-EPI)NonAf 53.29 Random Glucose 134 H Calcium 8.3 L Total Bilirubin 0.4 AST 15 ALT 17 Alkaline Phosphatase 106 Creatine Kinase 47 Troponin I < 0.02 Total Protein 5.8 L Albumin 2.5 L Urine Color Yellow Urine Appearance Clear Urine pH 5.0 Ur Specific Krum 1.015 Urine Protein Trace Urine Glucose (UA) Negative Urine Ketones Negative Urine Blood 1+ H Urine Nitrite Negative Urine Bilirubin Negative Urine Urobilinogen 0.2 Ur Leukocyte Esterase Negative Urine WBC (Auto) 2 Urine RBC (Auto) 2 Urine Casts (Auto) 3 U Epithel Cells (Auto) 1.8 Urine Bacteria (Auto) 3.1 Intake & Output 05/30/19 05/31/19 06/01/19 06/02/19 23:59 23:59 23:59 23:59 Weight 72.575 kg Imaging - Results Chest X-ray: Report Reviewed, Image Reviewed EKG: Image Reviewed Problem List - Problems (1) Anemia Code(s): D64.9 - ANEMIA, UNSPECIFIED (2) Generalized weakness Code(s): R53.1 - WEAKNESS (3) Failure to thrive in adult Code(s): R62.7 - ADULT FAILURE TO THRIVE (4) Pancreatic cancer Code(s): C25.9 - MALIGNANT NEOPLASM OF PANCREAS, UNSPECIFIED (5) HTN (hypertension) Code(s): I10 - ESSENTIAL (PRIMARY) HYPERTENSION (6) History of colon cancer Code(s): Z85.038 - PERSONAL HISTORY OF MALIGNANT NEOPLASM OF LARGE INTESTINE (7) History of pulmonary embolism Code(s): Z86.711 - PERSONAL HISTORY OF PULMONARY EMBOLISM Assessment/Plan This is a 89 y/o man with a PMHx of Pancretic Ca (on Chemo, last tx 05/30/19, [facility]) , Colon Ca (R Hemicolectomy), Anemia, HTN, PE/DVT (on Xarelto), GERD, Hiatal Hernia, ?Dementia. Admitted for Generalized Weakness, Failure to Thrive, Anemia for further evaluation of their emergent condition. Plan: Admit # Generalized Weakness Likely secondary to Dehydration vs Chemotherapy Gentle IVF Monitor CBC, BMP RD eval PT eval- conditioning Fall Precautions # Failure to Thrive Likely secondary to Pancreatic Ca, Dehydration Active chemo ([facility]) Albumin 2.5 RD eval Swallow Eval Monitor CBC, BMP Monitor vitals # Anemia Appreciate Oncology consult Monitor CBC Hgb 8.1 vitals- nl Will transfuse if Hgb < 8 # Pancreatic Ca active chemo, last tx 05/30/19 at ([facility]) Appreciate Oncology consult Monitor CBC, BMP Monitor vitals # Colon Ca ?in remission s/p R Hemicolectomy # Hypertension stable Continue home meds, when verified Monitor renal function # GERD stable Continue Prevacid, when verified # DVT/PE hx Continue Xarelto, when verified FEN PO fluids as tolerated Replete lytes prn Low Na Diet DVT ppx OOB SCDs Continue Xarelto when verified Dispo: Requires Inpatient Care Visit type - Emergency Visit Emergency Visit: Yes ED Registration Date: 06/02/19 Care time: The patient presented to the Emergency Department on the above date and was hospitalized for further evaluation of their emergent condition. - New Patient This patient is new to me today: Yes Date on this admission: 06/02/19 - Critical Care Critical Care patient: No
[2019-06-03 08:31] LABS: BASO % 0.4 % (0-2.0); EOS % 0.8 % (0-4.5); HEMATOCRIT 21.9 % (35.4-49); HEMOGLOBIN 7.2 GM/dL (11.7-16.9); MCH 28.8 pg (25.7-33.7); MEAN PLT VOLUME 10.1 fl (7.5-11.1); MONO % 11.4 % (3.8-10.2); NEUT % 78.4 % (42.8-82.8); PLATELET COUNT 105 K/MM3 (134-434); RBC 2.51 M/mm3 (4.00-5.60); RDW 16.2 % (11.9-15.9); WHITE BLOOD COUNT 4.2 K/mm3 (4.0-10.0)
[2019-06-03 08:41] LABS: BLOOD UREA NITROGEN 15.7 mg/dL (7-18); CALCIUM 8.1 mg/dL (8.5-10.1); MAGNESIUM 1.5 mg/dL (1.8-2.4); PHOSPHOROUS 3.6 mg/dL (2.5-4.9); POTASSIUM 3.4 mmol/L (3.5-5.1)
[2019-06-03] MEDS ORDERED: POTASSIUM CHLORIDE TABS 20 MEQ TABLET.ER (FP) PO ONE (12:05)
[2019-06-03] MEDS ORDERED: oxyCODONE HCL 5 MG TABLET PO PRN (12:05)
--- NOTE | 2019-06-03 12:15 | PN ---
Progress Note, Physician Chief Complaint: Weakness Pancreatic Ca History of Present Illness: NAD sitting at the edge of the bed Feels weak and decreased appetite Denies any pain, SOB - Current Medication List Current Medications: Active Medications Furosemide (Lasix -) 20 mg PO DAILY [facility] Sodium Chloride (Normal Saline -) 1,000 mls @ 42 mls/hr IV ASDIR [facility] Last Admin: 06/02/19 21:55 Dose: 42 mls/hr Isosorbide Mononitrate (Imdur -) 60 mg PO DAILY [facility] Metoprolol Succinate (Toprol Xl -) 50 mg PO DAILY [facility] Montelukast Sodium (Singulair -) 10 mg PO HS [facility] [id number] Ethyl Esters (Lovaza -) 2 gm PO DAILY [facility] Oxycodone HCl (Roxicodone -) 5 mg PO Q6H PRN PRN Reason: PAIN LEVEL 6-10 Rivaroxaban (Xarelto) 20 mg PO DAILY [facility] - Objective Vital Signs: Vital Signs Temperature 97.9 F 06/03/19 03:49 Pulse Rate 73 06/03/19 03:49 Respiratory Rate 20 06/03/19 05:46 Blood Pressure 137/73 06/03/19 03:49 O2 Sat by Pulse Oximetry (%) 100 06/03/19 05:46 Constitutional: Yes: Well Nourished, No Distress, Calm Cardiovascular: Yes: Regular Rate and Rhythm, Murmur (Grade II/) Respiratory: Yes: Regular, CTA Bilaterally, On Nasal O2 Gastrointestinal: Yes: Normal Bowel Sounds, Soft Genitourinary: Yes: WNL Musculoskeletal: Yes: Muscle Weakness Extremities: Yes: WNL Edema: No Peripheral Pulses WNL: Yes Neurological: Yes: Alert, Oriented Psychiatric: Yes: Alert, Oriented Labs: CBC, BMP 06/03/19 07:05 06/03/19 07:05 Problem List - Problems (1) Generalized weakness Assessment/Plan: -Multifactorial -Physical therapy Problems reviewed: Yes Code(s): R53.1 - WEAKNESS (2) Symptomatic anemia Assessment/Plan: -Transfuse 1 U PRBC -Monitor H/H -Check Stool OB -Also check Iron, B12, thyroid profile Problems reviewed: Yes Code(s): D64.9 - ANEMIA, UNSPECIFIED (3) Pancreatic cancer Assessment/Plan: -Oncology consult Problems reviewed: Yes Code(s): C25.9 - MALIGNANT NEOPLASM OF PANCREAS, UNSPECIFIED (4) Failure to thrive Assessment/Plan: -Added Ensure BID -Added multivitamin -Added Mirtazapine 7.5 mg po HS Problems reviewed: Yes Code(s): [id number] - Qualifiers: Failure to thrive age range: in adult Qualified Code(s): R62.7 - Adult failure to thrive Assessment/Plan see problem list
[2019-06-03] MEDS: RIVAROXABAN 20 MG TABLET PO SCH (13:27)
[2019-06-03] MEDS: PANTOPRAZOLE 40 MG TABLET PO SCH (13:28)
[2019-06-03] MEDS: FUROSEMIDE 20 MG TABLET (FP) PO SCH (13:28)
[2019-06-03] MEDS: MULTIVITAMINS (DAILY MVI) TABLET (FP) PO SCH (13:28)
[2019-06-03] MEDS: ISOSORBIDE MONONITRATE 30 MG TAB.SR.24H (FP) PO SCH (13:28)
--- NOTE | 2019-06-03 14:14 | EKG ---
Test Reason : Blood Pressure : / mmHG Vent. Rate : 084 BPM Atrial Rate : 084 BPM P-R Int : 188 ms QRS Dur : 076 ms QT Int : 374 ms P-R-T Axes : 018 008 018 degrees QTc Int : 441 ms SINUS RHYTHM WITH MARKED SINUS ARRHYTHMIA WITH OCCASIONAL PREMATURE VENTRICULAR COMPLEXES OTHERWISE NORMAL ECG Confirmed by MD ARTEMIO, JOAQUINA ([id number]) on 06/03/2019 2:13:54 PM Referred By: Confirmed By:JOAQUINA ULLOA MD
[2019-06-03 14:39] VITALS: BMI 27.4
--- NOTE | 2019-06-03 19:28 | CONSULT ---
Consult Consult Specialty:: onc Referred by:: Dr Cortés Reason for Consultation:: pancreatic ca - History of Present Illness Chief Complaint: generalized weakness History of Present Illness: 89M with hx colon ca (s/p r- hemicolectomy) and pancreatic ca (on chemotherapy, IV, every 2 weeks), anemia, PE/DVT( on Xarelto) presented with generalized weakness and decreased PO intake x 2 days. Hgb 7.2, Plt 105, WBC normal. No records available. Patient and family don't know which chemotherapy but pt appears to have stable disease. Last chemo was on 05/23. At the time also received PRBC transfusion. Continues to feel weak but denies chest pain, SOB, melena, and hematochezia. - Past Medical History Cardio/Vascular: Yes: CAD, HTN, Hyperlipdemia Pulmonary: Yes: Pulmonary Embolus (associated with DVT) Gastrointestinal: Yes: Cancer (Pancreatic cancr dx'ed 08/10, Right colon cancer resected 1990) Renal/: Yes: BPH, Renal Calculi (s/p ESWL) Musculoskeletal: Yes: Osteoarthritis - Past Surgical History Past Surgical History: Yes: Cataract Removal (bilateral), Colonoscopy, Tonsillectomy (surgical excision of right renal stones), Upper Endoscopy - Alcohol/Substance Use Hx Alcohol Use: No History of Substance Use: reports: None - Smoking History Smoking history: Former smoker Have you smoked in the past 12 months: No Aproximately how many cigarettes per day: 0 If you are a former smoker, when did you quit?: 1953 - Social History Usual Living Arrangement: With Spouse ADL: Independent Occupation: retired mailman History of Recent Travel: No Home Medications - Allergies Allergies/Adverse Reactions: Allergies Allergy/AdvReac Type Severity Reaction Status Date / Time No Known Allergies Allergy Verified 03/17/19 11:16 - Home Medications Home Medications: Ambulatory Orders Lansoprazole [Prevacid -] 30 mg PO BID 07/26/12 Metoprolol Succinate [Toprol XL -] 50 mg PO DAILY 07/26/12 Montelukast Na [Singulair -] 10 mg PO HS 07/26/12 [place]-3 Acid Ethyl Esters [Lovaza -] 2,000 mg PO DAILY 08/15/12 Isosorbide Mononitrate [Isosorbide Mononitrate ER] 60 mg PO DAILY 11/09/17 Amlodipine Besylate 10 mg PO DAILY 01/24/19 Rivaroxaban [Xarelto -] 20 mg PO DAILY 01/24/19 Oxycodone HCl 5 mg PO PRN 02/19/19 Ferrous Sulfate [Iron] 325 mg PO BID 06/03/19 Furosemide [Lasix] 20 mg PO ONCE 06/03/19 Review of Systems - Review of Systems Constitutional: reports: Weakness. denies: Fever, Loss of Appetite Cardiovascular: reports: No Symptoms Respiratory: reports: No Symptoms Gastrointestinal: reports: No Symptoms. denies: Abdominal Pain, Vomiting Physical Exam Vital Signs: Vital Signs Temperature 97.3 F L 06/03/19 18:35 Pulse Rate 86 06/03/19 18:35 Respiratory Rate 18 06/03/19 18:35 Blood Pressure 116/54 L 06/03/19 18:35 O2 Sat by Pulse Oximetry (%) 97 06/03/19 09:00 Constitutional: Yes: No Distress, Calm, Poor Hygeine Cardiovascular: Yes: Regular Rate and Rhythm, S1, S2 Respiratory: Yes: Regular, CTA Bilaterally Gastrointestinal: Yes: Soft. No: Distention, Tenderness Edema: No Labs: CBC, BMP 06/03/19 07:05 06/03/19 07:05 Assessment/Plan 89M with pancreatic ca (on chemotherapy, IV, every 2 weeks), anemia, PE/DVT( on Xarelto) presented with generalized weakness and decreased PO intake. Found to have anemia and mild thrombocytopenia likely 2/2 chemotherapy. No obvious e/ o bleeding. No nutritional deficits. Peripheral smear without plt clumps, no schistocytes. Agree with PRBC transfusion, gentle hydration.
[2019-06-03] MEDS: MONTELUKAST NA 10 MG TABLET PO SCH (21:34)
[2019-06-03] MEDS: MIRTAZAPINE 15 MG TABLET (FP) PO SCH (21:34)
--- NOTE | 2019-06-04 09:06 | PN ---
Progress Note, Physician - Current Medication List Current Medications: Active Medications Furosemide (Lasix -) 20 mg PO DAILY [facility] Last Admin: 06/03/19 13:28 Dose: 20 mg Sodium Chloride (Normal Saline -) 1,000 mls @ 42 mls/hr IV ASDIR [facility] Last Admin: 06/02/19 21:55 Dose: 42 mls/hr Isosorbide Mononitrate (Imdur -) 60 mg PO DAILY [facility] Last Admin: 06/03/19 13:28 Dose: 60 mg Metoprolol Succinate (Toprol Xl -) 50 mg PO DAILY [facility] Mirtazapine (Remeron -) 7.5 mg PO HS [facility] Last Admin: 06/03/19 21:34 Dose: 7.5 mg Montelukast Sodium (Singulair -) 10 mg PO HS [facility] Last Admin: 06/03/19 21:34 Dose: 10 mg Multivitamins/Minerals/Vitamin C (Tab-A-Vit -) 1 tab PO DAILY [facility] Last Admin: 06/03/19 13:28 Dose: 1 tab [id number] Ethyl Esters (Lovaza -) 2 gm PO DAILY [facility] Oxycodone HCl (Roxicodone -) 5 mg PO Q6H PRN PRN Reason: PAIN LEVEL 6-10 Pantoprazole Sodium (Protonix -) 40 mg PO DAILY [facility] Last Admin: 06/03/19 13:28 Dose: 40 mg Rivaroxaban (Xarelto) 20 mg PO DAILY [facility] Last Admin: 06/03/19 13:27 Dose: 20 mg - Objective Vital Signs: Vital Signs Temperature 98.2 F 06/04/19 06:41 Pulse Rate 82 06/04/19 06:41 Respiratory Rate 18 06/04/19 06:41 Blood Pressure 116/56 L 06/04/19 06:41 O2 Sat by Pulse Oximetry (%) 97 06/03/19 09:00 Cardiovascular: Yes: S1, S2 Respiratory: Yes: Regular, CTA Bilaterally Gastrointestinal: Yes: Normal Bowel Sounds, Soft Labs: CBC, BMP 06/03/19 07:05 06/03/19 07:05 Assessment/Plan - Problems (1) Generalized weakness Assessment/Plan: -Multifactorial -Physical therapy Problems reviewed: Yes Code(s): R53.1 - WEAKNESS (2) Symptomatic anemia Assessment/Plan: -Transfused 1 U PRBC -Monitor H/H -Check Stool OB -Also check Iron, B12, thyroid profile Problems reviewed: Yes Code(s): D64.9 - ANEMIA, UNSPECIFIED (3) Pancreatic cancer Assessment/Plan: -Oncology consult Problems reviewed: Yes Code(s): C25.9 - MALIGNANT NEOPLASM OF PANCREAS, UNSPECIFIED (4) Failure to thrive Assessment/Plan: -Added Ensure BID -Added multivitamin -Added Mirtazapine 7.5 mg po HS Problems reviewed: Yes Code(s): CMS0911 - Qualifiers: Failure to thrive age range: in adult Qualified Code(s): R62.7 - Adult failure to thrive (5) Afib Assessment/Plan: -On Xarelto -Monitor
[2019-06-04 09:26] LABS: BASO % 0.3 % (0-2.0); EOS % 0.7 % (0-4.5); HEMATOCRIT 27.9 % (35.4-49); HEMOGLOBIN 9.3 GM/dL (11.7-16.9); LYMPH % 7.6 % (8-40); MCHC 33.2 g/dl (32.0-35.9); MEAN CELL VOLUME 87.3 fl (80-96); MEAN PLT VOLUME 10.5 fl (7.5-11.1); MONO % 9.4 % (3.8-10.2); PLATELET COUNT 155 K/MM3 (134-434); RDW 16.5 % (11.9-15.9); WHITE BLOOD COUNT 5.9 K/mm3 (4.0-10.0)
[2019-06-04 09:51] LABS: ALBUMIN 2.4 g/dl (3.4-5.0); BILIRUBIN,TOTAL 0.7 mg/dL (0.2-1); BLOOD UREA NITROGEN 17.6 mg/dL (7-18); CALCIUM 8.5 mg/dL (8.5-10.1); CREATININE 1.2 mg/dL (0.55-1.3); POTASSIUM 4.1 mmol/L (3.5-5.1); TOT PROT 5.7 g/dl (6.4-8.2)
[2019-06-04] MEDS ORDERED: PT OWN MED DRAWER 7, Y5N ONE (09:59)
[2019-06-04] MEDS: FUROSEMIDE 20 MG TABLET (FP) PO SCH (10:02)
[2019-06-04] MEDS: MULTIVITAMINS (DAILY MVI) TABLET (FP) PO SCH (10:02)
[2019-06-04] MEDS: RIVAROXABAN 20 MG TABLET PO SCH (10:02)
[2019-06-04] MEDS: ISOSORBIDE MONONITRATE 30 MG TAB.SR.24H (FP) PO SCH (10:02)
[2019-06-04] MEDS: PANTOPRAZOLE 40 MG TABLET PO SCH (10:02)
[2019-06-04] MEDS: OMEGA-3 ACID ETHYL ESTERS (FATTY-ACIDS) 1 GM CAPSULE (FP) PO SCH (10:03)
--- NOTE | 2019-06-04 10:36 | CONSULT ---
Admitting History and Physical - Past Medical History Cardiovascular: Yes: CAD, HTN, Hyperlipdemia Pulmonary: Yes: Pulmonary Embolus (associated with DVT) Gastrointestinal: Yes: Cancer (Pancreatic cancr dx'ed 08/10, Right colon cancer resected 1990) Renal/: Yes: BPH, Renal Calculi (s/p ESWL) Heme/Onc: Yes: Current Chemotherapy Musculoskeletal: Yes: Osteoarthritis - Past Surgical History Past Surgical History: Yes: Cataract Removal (bilateral), Colonoscopy, Tonsillectomy (surgical excision of right renal stones), Upper Endoscopy Additional Past Surgical History: Right Hemicolectomy - Smoking History Smoking history: Former smoker Have you smoked in the past 12 months: No Aproximately how many cigarettes per day: 0 If you are a former smoker, when did you quit?: 1953 - Alcohol/Substance Use Hx Alcohol Use: No History of Substance Use: reports: None - Social History ADL: Independent Occupation: retired mailman History of Recent Travel: No History - Admission Reason For Visit: ANEMIA,WEAKNESS - Hearing Hearing: Impaired, Both Hearing Aide: No With Patient: No Speech Evaluation - Communication Primary Language: MALAWIAN Communication: Yes: Within Normal Limits, Simple Responses Oral Expression Ability: Yes: No Impairment - Speech Production Able to Make Needs Known: Yes: WNL Intelligibility: Yes: WNL - Speech Characteristics Voice Loudness: Normal Voice Pitch: Yes: Normal Voice Phonatory-based Quality: Yes: Normal Speech Pattern: Normal Nasal Resonance: Normal Articulation: Yes: Precise Rate of Speech: Intact Voice Comment: Vocal quality appear WNL - Language/Auditory Comprehension Follows: Yes: 1 Stage Simple Commands, 2 Stage Simple Commands Observation: Able to respond to yes/no queries: Yes, Yes/No Confusion: No, Comprehends Conversational Speech: Yes, Benefits from Slow Speech: No, Benefits from Repetiton: No, Benefits from Increased Volume of Speech: No - Language/Verbal Expression Able to Respond to Simple Queries: Yes: WNL Able to Communicate Wants and Needs: Yes: WNL Functional Communication Status: Yes: WNL Aware of Errors: Yes Attempts to Correct Errors: Yes Use of Gestures: No Written Expression: Not examined Oral Expression: WFL Reading Comprehension: Not examined Calculations: Not examined Attention: Yes: Intact - Memory/Perception halfway Memory: Yes: WNL Short Term Memory: Yes: WNL - Swallow Evaluation/Bedside Assessment Current Nutritional Intake: Regular (NA controlled.), Thin Liquids Oral Secretions: Yes: WFL Tracheostomy Present: No Patient on Ventilator: No Dentition: Yes: Adequate Facial Symmetry at Rest: Symmetrical Facial Symmetry on Retraction: Symmetrical Facial Movement: Controlled Sensation: Normal Facial Comment: WFL for speech and swallowing purposes. Jaw Position: Closed at Rest Against Resistance Opening: Normal Against Resistance Closing: Normal Smile: Normal Lips, Comment: WFL for speech and swallowing purposes. Lingual Movement: Normal Lingual Speed of Movement: Normal Lingual Movement Strgth Against Opposition: Normal Lingual Movement Characteristics: Normal Lingual Comment: WFL for speech and swallowing purposes. Soft Palate Description: Normal Color Hard Palate Description: Normal Color Bite Reflex: Present Velopharyngeal Movement: Normal Laryngeal Elevation: WFL Laryngeal Movement: Able to Palpate Needs Assistance: No Rate of Intake: WFL Bolus Size: WFL Labial Seal: WFL Chewing: WFL Oral Prep Time: WFL A-P Transit: WFL Pocketing: None Timing of Swallow: WFL Coughing/Throat Clear: No Change in Voice: No Other Findings/Remarks: 89 yo male seen at bedside for swallow eval to r/o dysphagia. Pt is verbal, A& Ox3 cooperative. Pt presents with dementia, pmhx of GERD, HTN, PE and possibly FTT. Oral facial examination revealed adequate function for speech and swallowing purposes. Vocal quality and airway protection are WFL at this time. Current diet, regular solids with thin liquids. Pt given po trials of pureed with minimal assistance revealed good acceptance, adequate bolus control and transport. Pharyngeal swallow appears timely (1-2 seconds) with no cough or changes in respiration and /or voicing at this time. Thin liquid trials via straw were unremarkable for dysphagia and /or aspiration at this time. Recommendations - Speech Evaluation, Impression/Plan Impression: Pt is able to tolerate purees, regular solids (NA controlled) with thin liquids w/o s/s of aspiration-like behaviors at this time. Currently speech and language are within functional limits for his environment. Assisted Goals: Tolerate the least restrictive diet without s/s of pentration and / or aspiration at this time. Short Term Goals: Tolerate purees, regular solids with thin liquids without s/s aspiration. - Disposition Discharge to: To be Determined - Dysphagia Impressions/Plan Swallowing Skills: WF Dysphagia Impressions: No Impairment *Silent aspiration: cannot be R/O at bedside Dysphagia Treatment Plan: Safe Rate, 1/2 tsp. at a time, Elevate HOB during feed Dysphagia Evaluation Summary: Continue current diet of regular (sodium controlled ) solids with thin liquids as tolerated. Pt DOES NOT like cheese (as reported). Observe standard aspiration precautions. Oral care before and after meals. Meds can be given whole with liquids. Results given to charge loader and PCP via chart. STUDENT FINANCIAL SERVICES COUNSELOR to follow up as needed. - Recommendations Diet Consistency: Regular (Na controlled.) Medication Administration: Whole with water Liquids: Thin Liquids
[2019-06-04] MEDS: MONTELUKAST NA 10 MG TABLET PO SCH ×2 (21:55→23:00)
[2019-06-04] MEDS: MIRTAZAPINE 15 MG TABLET (FP) PO SCH ×2 (21:55→23:00)
[2019-06-05] MEDS: SODIUM CHLORIDE 1,000 ML IV SCH
[2019-06-05 08:46] LABS: BASO % 0.9 % (0-2.0); EOS % 0.7 % (0-4.5); HEMATOCRIT 26.2 % (35.4-49); HEMOGLOBIN 8.7 GM/dL (11.7-16.9); LYMPH % 7.7 % (8-40); MCH 28.9 pg (25.7-33.7); MCHC 33.2 g/dl (32.0-35.9); MEAN CELL VOLUME 87.1 fl (80-96); MEAN PLT VOLUME 10.2 fl (7.5-11.1); MONO % 9.3 % (3.8-10.2); NEUT % 81.4 % (42.8-82.8); PLATELET COUNT 152 K/MM3 (134-434); RBC 3.01 M/mm3 (4.00-5.60); RDW 16.2 % (11.9-15.9); WHITE BLOOD COUNT 5.8 K/mm3 (4.0-10.0)
[2019-06-05] MEDS: ISOSORBIDE MONONITRATE 30 MG TAB.SR.24H (FP) PO SCH (11:18)
[2019-06-05] MEDS: MULTIVITAMINS (DAILY MVI) TABLET (FP) PO SCH (11:19)
[2019-06-05] MEDS: RIVAROXABAN 20 MG TABLET PO SCH (11:19)
[2019-06-05] MEDS: OMEGA-3 ACID ETHYL ESTERS (FATTY-ACIDS) 1 GM CAPSULE (FP) PO SCH (11:19)
[2019-06-05] MEDS: PANTOPRAZOLE 40 MG TABLET PO SCH (11:19)
[2019-06-05] MEDS: FUROSEMIDE 20 MG TABLET (FP) PO SCH (11:19)
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
[2019-06-05] MEDS: MONTELUKAST NA 10 MG TABLET PO SCH (21:17)
[2019-06-05] MEDS: MIRTAZAPINE 15 MG TABLET (FP) PO SCH (21:17)
[2019-06-06 09:14] VITALS: BP 106/44; PULSE 62; TEMP 98.4
[2019-06-06] MEDS: MULTIVITAMINS (DAILY MVI) TABLET (FP) PO SCH (09:48)
[2019-06-06] MEDS: RIVAROXABAN 20 MG TABLET PO SCH (09:48)
[2019-06-06] MEDS: ISOSORBIDE MONONITRATE 30 MG TAB.SR.24H (FP) PO SCH (09:48)
[2019-06-06] MEDS: FUROSEMIDE 20 MG TABLET (FP) PO SCH (09:49)
[2019-06-06] MEDS: PANTOPRAZOLE 40 MG TABLET PO SCH (09:49)
[2019-06-06] MEDS: OMEGA-3 ACID ETHYL ESTERS (FATTY-ACIDS) 1 GM CAPSULE (FP) PO SCH (10:12)
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
[2019-06-06 12:23] LABS: BASO % 0.3 % (0-2.0); EOS % 0.7 % (0-4.5); HEMATOCRIT 25.8 % (35.4-49); HEMOGLOBIN 8.5 GM/dL (11.7-16.9); LYMPH % 6.7 % (8-40); MCH 28.5 pg (25.7-33.7); MCHC 32.8 g/dl (32.0-35.9); MEAN PLT VOLUME 10.4 fl (7.5-11.1); MONO % 9.4 % (3.8-10.2); NEUT % 82.9 % (42.8-82.8); PLATELET COUNT 205 K/MM3 (134-434); RBC 2.97 M/mm3 (4.00-5.60); RDW 16.7 % (11.9-15.9); WHITE BLOOD COUNT 6.7 K/mm3 (4.0-10.0)
[2019-06-06] MEDS ORDERED: IRON POLYSACCHARIDES 150 MG CAPSULE PO SCH (12:45)
== END 2019-06-06 15:01 | disposition home health service (06) | DRG 437 ==
LOC: JER 19:16 → JERBED 21:50 → OBSVTOIN 06-03 01:22 → J6S 06-03 03:47
PROVIDERS: ADMIT Internal Medicine; ATTEND Family Medicine
PROC: 30233N1 Transfusion of Nonautologous Red Blood Cells into Peripheral Vein, Percutaneous Approach (ICD-10-PCS; principal; 2019-06-02)
DX: C25.9 Malignant neoplasm of pancreas, unspecified (principal); D63.0 Anemia in neoplastic disease; R62.7 Adult failure to thrive; I10 Essential (primary) hypertension; D69.6 Thrombocytopenia, unspecified; K21.9 Gastro-esophageal reflux disease without esophagitis; K44.9 Diaphragmatic hernia without obstruction or gangrene; T76.31XA Adult psychological abuse, suspected, initial encounter; Z87.891 Personal history of nicotine dependence; Z85.038 Personal history of other malignant neoplasm of large intestine; Z86.711 Personal history of pulmonary embolism
CPT/HCPCS: 36415; 36430; 36511; 71045-TC-FY; 80048; 80053; 81003; 82272; 82550; 82607; 82728; 83540; 83550; 83735; 84100; 84439; 84443; 84484; 85025; 86850; 86900; 86901; 86922; 93005; 93010; 97116-GP; 97162-GP; 99283-25; G0378; J7030; P9038; P9058

== ENCOUNTER 2019-07-21 17:04 | Emergency (ER) | payer OTHER ==
[2019-07-21 18:08] VITALS: BMI 27.4
--- NOTE | 2019-07-21 18:08 | PDOC ---
History of Present Illness - General Stated Complaint: ABDOMINAL PAIN Time Seen by Provider: 07/21/19 17:32 - History of Present Illness Initial Comments: Khoi Spears is an 89yo man with a PMH of HTN who presents to the ED with one week of RUQ pain, anorexia, and fatigue. He denies any nausea, vomiting, change in bowel habits, chest pain, difficulty breathing, GALE, congestion, sore throat, fever/chills, or known sick contacts. He states that the pain is 4/10, constant, and non-radiating; it is "tolerable." His called EMS, but he says that noth ing changed today to prompt the call. Past History - Past Medical History Allergies/Adverse Reactions: Allergies Allergy/AdvReac Type Severity Reaction Status Date / Time No Known Allergies Allergy Verified 07/21/19 18:02 Home Medications: Ambulatory Orders Lansoprazole [Prevacid -] 30 mg PO BID 07/26/12 Metoprolol Succinate [Toprol XL -] 50 mg PO DAILY 07/26/12 Montelukast Na [Singulair -] 10 mg PO HS 07/26/12 [place]-3 Acid Ethyl Esters [Lovaza -] 2,000 mg PO DAILY 08/15/12 Isosorbide Mononitrate [Isosorbide Mononitrate ER] 60 mg PO DAILY 11/09/17 Amlodipine Besylate 10 mg PO DAILY 01/24/19 Rivaroxaban [Xarelto -] 20 mg PO DAILY 01/24/19 Oxycodone HCl 5 mg PO PRN 02/19/19 Furosemide [Lasix] 20 mg PO ONCE 06/03/19 Iron Polysaccharides [Niferex-150 -] 150 mg PO DAILY #30 capsule 06/06/19 Mirtazapine [Remeron -] 7.5 mg PO HS #15 tablet 06/06/19 Multivitamins [Multivit ([facility] Formulary)] 1 tab PO DAILY #30 tab 06/06/19 Pantoprazole Sodium [Protonix -] 40 mg PO DAILY #30 tablet.ec 06/06/19 Ciprofloxacin HCl [Cipro] 500 mg PO Q12H #14 tablet 07/21/19 metroNIDAZOLE [Flagyl -] 500 mg PO Q8H 7 Days #21 tablet 07/21/19 Anemia: No Asthma: No Cancer: Yes (COLON CANCER remission, pancreatic ca) Cardiac Disorders: Yes (H/O PALPITATION; PULMONARY EMBOLI/DVT;ASHD) CVA: No COPD: No CHF: No Dementia: No Diabetes: No Dialysis: No GI Disorders: Yes (GERD, HIATAL HERNIA) Disorders: (NEPHROLITHIASIS S/PESWL) HTN: Yes Hypercholesterolemia: No Kidney Stones: No Liver Disease: No Psychiatric Problems: No Seizures: No Thyroid Disease: No Lung CA: No - Surgical History Abdominal Surgery: Yes (RIGHT HEMICOLECTOMY) Appendectomy: No Cardiac Surgery: No Cholecystectomy: No Gastric Stapling: No GI Surgery: No Lung Surgery: No Neurologic Surgery: No Orthopedic Surgery: No - Immunization History Immunization Up to Date: Yes - Psycho Social/Smoking Cessation Hx Smoking Status: No Smoking History: Former smoker Have you smoked in the past 12 months: No Number of Cigarettes Smoked Daily: 0 If you are a former smoker, when did you quit?: 1953 Hx Alcohol Use: No Drug/Substance Use Hx: No Substance Use Type: None Hx Substance Use Treatment: No Review of Systems - Review of Systems Comments:: General: No fevers, no chills, +anorexia, +fatigue HEENT: No changes in vision, no changes in hearing, no congestion, no sore throat CV: No chest pain, no palpitations, no LE edema Pulm: No SOB, no cough, no wheezing GI: No nausea or vomiting, no change in bowel habits, no melena. +RUQ pain : No frequency, no urgency, no dysuria Musc: No back pain, no joint swelling, no recent injury Skin: No rash, no lesions, no erythema Endo: No excessive thirst, no heat/cold intolerance Heme: No unusual bruising or bleeding, no swollen glands Neuro: No syncope, no numbness/tingling, no focal weakness Vasc: No claudication Psych: No recent change in mood, no SI or HI *Physical Exam - Physical Exam General: Comfortable, no acute distress HEENT: Atraumatic, PERRL, EOMI, MMM, voice normal, normal neck ROM Cards: RRR, no murmur appreciated Pulm: Comfortable on room air, clear to auscultation bilaterally Abd: Soft, nontender, nondistended Ext: Atraumatic. No LE edema. ROM intact. WWP Skin: Normal color, no rashes or lesions Neuro: A&Ox3, CN grossly intact, normal speech, motor/sensory grossly intact and symmetric Psych: Mood appropriate to situation ED Treatment Course - LABORATORY CBC & Chemistry Diagram: 07/21/19 18:20 07/21/19 18:20 - RADIOLOGY Radiology Studies Ordered: Category Date Time Status ABDOMEN & PELVIS CT W/O CONTR [CT] Stat CT Scan 07/21/19 18:[address] WITHOUT CONTRAST [CT] Stat CT Scan 07/21/19 18:01 Ordered CHEST PA & LAT [RAD] Stat Radiology 07/21/19 18:01 Ordered Medical Decision Making - Medical Decision Making 07/21/19 18:05 Khoi Spears is an 89yo man with a PMH of HTN who presents to the ED with one week of RUQ pain, anorexia, and fatigue. He denies any nausea, vomiting, change in bowel habits, chest pain, difficulty breathing, GALE, congestion, sore throat, fever/chills, or known sick contacts. He states that the pain is 4/10, constant, and non-radiating; it is "tolerable." His called EMS, but he says that nothing changed today to prompt the call. - Ddx includes cholecystitis/cholelithiasis, though no nausea/vomiting or association w/ food. Possible liver pathology, pneumonia, COVID, kidney stone. Unlikely gastritis/gastroenteritis as pt does not endorse GI symptoms. unlikely ACS given location - CBC, CMP, trop, LDH, dbili, coags, COVID, EKG, CT c/a/p - Pt declines pain medication 07/21/19 19:58 - Labs reviewed, no concerning abnormalities - CXR clear - CT abd/pelvis completed, read pending - Reassess 07/21/19 21:12 - Pt sleeping comfortably. Asks for food when wakened. - CT abd/pelvis completed. Notes thickening in the duodenum. No other acute abnormalities appreciated. - Likely to discharge home to f/u with PMD. 07/21/19 21:31 - Spoke to pt's grandson, Thom. He will call the pt's to update her as she could not be reached from the ED - Will d/c home. Needs transportation. Discussed with José Manuel Rick and Maylin Henry PGY2 Discharge - Discharge Information Problems reviewed: Yes Clinical Impression/Diagnosis: Duodenitis Condition: Stable Disposition: HOME - Admission No - Additional Discharge Information Prescriptions: Ciprofloxacin HCl [Cipro] 500 mg PO Q12H #14 tablet metroNIDAZOLE [Flagyl -] 500 mg PO Q8H 7 Days #21 tablet - Follow up/Referral Referrals: [facility] [place] [facility] [place] [Provider Group] Ty Acosta DO [Staff Physician] - - Patient Discharge Instructions Patient Printed Discharge Instructions: DI for Enteritis Additional Instructions: Discharge Instructions: You were seen in the emergency department for abdominal pain. Your blood tests did not show any concerning findings. Your CT scan showed inflammation of the small bowel. Home Care: - Drink plenty of liquids. It is OK if you do not feel like eating as long as you are staying hydrated - You have been prescribed two antibiotics. Metronidazole (Flagyl) should be taken every 8 hours for one week. Do not drink alcohol with this medication. Ciprofloxacin should be taken every 12 hours for one week. Finish the entire prescription even if you feel better. - Follow up with your regular doctor within one week if you do not feel better - Seek immediate care for worsening symptoms, severe pain, dehydration (due to vomiting, diarrhea, or difficulty drinking), you develop fever to 101F, or you have any other medical emergency. - Post Discharge Activity
--- NOTE | 2019-07-21 18:35 | PDOC ---
Attending Attestation - Resident Resident Name: Cris Henry - ED Attending Attestation I have performed the following: I have examined & evaluated the patient, The case was reviewed & discussed with the resident, I agree w/resident's findings & plan, Exceptions are as noted - HPI HPI: 89 yo M history HTN presents with 1 week history of RUQ pain, poor appetite, fatigue. Denies N/V/D/constipation. Denies any respiratory symptoms, fever. - Physicial Exam PE: GENERAL: Awake, alert, and fully oriented, in no acute distress. Well-appearing. HEAD: No signs of trauma EYES: PERRLA, EOMI, sclera anicteric, conjunctiva clear ENT: Auricles normal inspection, hearing grossly normal, nares patent, oropharynx clear without exudates. Moist mucosa NECK: Normal ROM, supple, no lymphadenopathy, JVD, or masses LUNGS: Breath sounds equal, clear to auscultation bilaterally. No wheezes, and no crackles HEART: Regular rate and rhythm, normal S1 and S2, no murmurs, rubs or gallops ABDOMEN: Soft, +upper abd tenderness, normoactive bowel sounds. No guarding, no rebound. No masses EXTREMITIES: Normal range of motion, no edema. No clubbing or cyanosis. No cords, erythema, or tenderness NEUROLOGICAL: Cranial nerves II through XII grossly intact. Normal speech, normal gait. Motor and sensation intact SKIN: Warm, dry, normal turgor, no rashes or lesions noted. - Medical Decision Making 89 yo M presenting with abd pain. Given the current coronavirus outbreak, will obtain CT of the chest in addition to the abdomen and pelvis (as the presenting symptoms are still very unclear). Pt is well-appearing, potential discharge home if no acute findings. Discharge - Discharge Information Problems reviewed: Yes Clinical Impression/Diagnosis: Duodenitis Condition: Stable Disposition: HOME - Additional Discharge Information Prescriptions: Ciprofloxacin HCl [Cipro] 500 mg PO Q12H #14 tablet metroNIDAZOLE [Flagyl -] 500 mg PO Q8H 7 Days #21 tablet - Follow up/Referral [place]: [facility] [place] [facility] [place]] Ty Acosta DO [Staff Physician] - - Patient Discharge Instructions Patient Printed Discharge Instructions: DI for Enteritis Additional Instructions: Discharge Instructions: You were seen in the emergency department for abdominal pain. Your blood tests did not show any concerning findings. Your CT scan showed inflammation of the small bowel. Home Care: - Drink plenty of liquids. It is OK if you do not feel like eating as long as you are staying hydrated - You have been prescribed two antibiotics. Metronidazole (Flagyl) should be taken every 8 hours for one week. Do not drink alcohol with this medication. Ciprofloxacin should be taken every 12 hours for one week. Finish the entire prescription even if you feel better. - Follow up with your regular doctor within one week if you do not feel better - Seek immediate care for worsening symptoms, severe pain, dehydration (due to vomiting, diarrhea, or difficulty drinking), you develop fever to 101F, or you have any other medical emergency. - Post Discharge Activity
[2019-07-21 19:04] LABS: BASO % 0.4 % (0-2.0); HEMATOCRIT 33.3 % (35.4-49); HEMOGLOBIN 10.7 GM/dL (11.7-16.9); LYMPH % 10.5 % (8-40); MCH 27.2 pg (25.7-33.7); MCHC 32.1 g/dl (32.0-35.9); MEAN CELL VOLUME 84.7 fl (80-96); MEAN PLT VOLUME 9.7 fl (7.5-11.1); MONO % 6.8 % (3.8-10.2); NEUT % 82.3 % (42.8-82.8); PLATELET COUNT 183 K/MM3 (134-434); RBC 3.93 M/mm3 (4.00-5.60); RDW 18.3 % (11.9-15.9); WHITE BLOOD COUNT 5.2 K/mm3 (4.0-10.0)
[2019-07-21 19:11] LABS: INR 1.14 (0.83-1.09); PROTHROMBIN TIME (PATIENT) 13.5 SEC (9.7-13.0)
[2019-07-21 19:14] LABS: ACTIVATED PTT 31.3 SECONDS (25.2-36.5)
[2019-07-21] MEDS ORDERED: AZITHROMYCIN IVPB 500 MG in DEXTROSE 5%-WATER - 250 ML IVPB ONE (19:23)
--- NOTE | 2019-07-21 19:45 | PDOC ---
*Physical Exam - Vital Signs Last Vital Signs Temp Pulse Resp BP Pulse Ox 98.2 F 79 18 130/92 98 07/21/19 17:35 07/21/19 17:35 07/21/19 17:35 07/21/19 17:35 07/21/19 17:35 ED Treatment Course - LABORATORY CBC & Chemistry Diagram: 07/21/19 18:20 07/21/19 18:20 - ADDITIONAL ORDERS Additional order review: Laboratory Results 07/21/19 07/21/19 18:20 18:20 PT with INR 13.50 H INR 1.14 H PTT (Actin FS) 31.3 D-Dimer 1506 H 07/21/19 18:20 RBC 3.93 L MCV 84.7 MCHC 32.1 RDW 18.3 H MPV 9.7 Neutrophils % 82.3 Lymphocytes % 10.5 D Monocytes % 6.8 Eosinophils % 0.0 D Basophils % 0.4 Medical Decision Making - Medical Decision Making 07/21/19 19:43 Received signout on patient. Pt awaiting his lab results. Pt has a clear looking CT scan. I have given 1 preventive dose of zithromax; I understand ID is not continuing this on the floor. 07/21/19 21:[address] normal; pt will go home with flagyl. We will send him by cab Discharge - Discharge Information Problems reviewed: Yes Clinical Impression/Diagnosis: Duodenitis Condition: Stable Disposition: HOME - Additional Discharge Information Prescriptions: Ciprofloxacin HCl [Cipro] 500 mg PO Q12H #14 tablet metroNIDAZOLE [Flagyl -] 500 mg PO Q8H 7 Days #21 tablet - Follow up/Referral Referrals: [facility] [place] [place] [Provider Group] Ty Acosta DO [Staff Physician] - - Patient Discharge Instructions Patient Printed Discharge Instructions: DI for Enteritis Additional Instructions: Discharge Instructions: You were seen in the emergency department for abdominal pain. Your blood tests did not show any concerning findings. Your CT scan showed inflammation of the small bowel. Home Care: - Drink plenty of liquids. It is OK if you do not feel like eating as long as you are staying hydrated - You have been prescribed two antibiotics. Metronidazole (Flagyl) should be taken every 8 hours for one week. Do not drink alcohol with this medication. Ciprofloxacin should be taken every 12 hours for one week. Finish the entire prescription even if you feel better. - Follow up with your regular doctor within one week if you do not feel better - Seek immediate care for worsening symptoms, severe pain, dehydration (due to vomiting, diarrhea, or difficulty drinking), you develop fever to 101F, or you have any other medical emergency. - Post Discharge Activity
[2019-07-21 19:46] LABS: ALK PHOS 86 U/L (45-117); ANION GAP 13 MMOL/L (8-16); BILIRUBIN,DIRECT 0.2 mg/dL (0.0-0.2); BILIRUBIN,TOTAL 0.4 mg/dL (0.2-1); BLOOD UREA NITROGEN 20.6 mg/dL (7-18); CALCIUM 8.9 mg/dL (8.5-10.1); CHLORIDE 100 mmol/L (98-107); CO2 22 mmol/L (21-32); CREATININE 1.3 mg/dL (0.55-1.3); GLUCOSE,RANDOM 107 mg/dL (74-106); POTASSIUM 4.5 mmol/L (3.5-5.1); SGOT/AST 30 U/L (15-37); SGPT/ALT 19 U/L (13-61); SODIUM 135 mmol/L (136-145); TOT PROT 7.4 g/dl (6.4-8.2)
[2019-07-21] MEDS ORDERED: AZITHROMYCIN IVPB 500 MG/250 ML BAG IVPB ONE (19:51)
[2019-07-21 20:24] LABS: LDH 166 U/L (87-246)
[2019-07-21 20:57] VITALS: BP 155/84; PULSE 77; TEMP 97.6
--- NOTE | 2019-07-23 14:44 | EKG ---
Test Reason : Blood Pressure : / mmHG Vent. Rate : 076 BPM Atrial Rate : 076 BPM P-R Int : 212 ms QRS Dur : 072 ms QT Int : 386 ms P-R-T Axes : 038 013 032 degrees QTc Int : 434 ms SINUS RHYTHM WITH SINUS ARRHYTHMIA WITH 1ST DEGREE A-V BLOCK WITH OCCASIONAL PREMATURE VENTRICULAR COMPLEXES LOW VOLTAGE QRS CANNOT RULE OUT ANTERIOR INFARCT , AGE UNDETERMINED ABNORMAL ECG WHEN COMPARED WITH ECG OF 02-JUN-2019 20:46, NO SIGNIFICANT CHANGE WAS FOUND Confirmed by BONNIE GA MD ([id number]) on 07/23/2019 2:44:08 PM Referred By: Confirmed By:BONNIE GA MD
== END 2019-07-21 23:34 | disposition home or self-care (01) ==
LOC: JER 17:04
DX: K29.80 Duodenitis without bleeding (principal)
CPT/HCPCS: 36415; 71046-TC-FY; 71250-TC; 74176-TC; 80053; 82248; 82550; 83605; 83615; 84484; 85025; 85379; 85610; 85730; 93005; 93010; 99284-25; U0002